=== PATIENT | female | born 1980 | race Caucasian/White ===

== ENCOUNTER 2019-11-13 14:48 | Outpatient (CLI) | payer OTHER, SELFPAY ==
[2019-11-13 16:16] LABS: Alanine Aminotransferase 21 U/L (14-59); Albumin Level 4.1 g/dL (3.4-5.0); Alkaline Phosphatase 57 U/L (46-116); Anion Gap 14.9 mmol/L (7-16); Aspartate Amino Transferase 16 U/L (15-37); Bilirubin,Total 0.3 mg/dL (0.00-1.00); Blood Urea Nitrogen 14 mg/dL (7-18); Calcium 9.1 mg/dL (8.5-10.1); Carbon Dioxide 27 mmol/L (21-32); Chloride 104 mmol/L (98-108); Cholesterol 146 mg/dL (0-200); Estimated Glomerular Filt Rate > 60; Glucose 88 mg/dL (70-99); HDL Direct 59 mg/dL (40-60); LDL Cholesterol Calculated 81 mg/dL (<130); Osmolality Calculated 293 mOsm/kg (285-295); Potassium 3.9 mmol/L (3.5-5.1); Sodium 142 mmol/L (136-145); Thyroid Stimulating Hormone 1.85 uIU/mL (0.36-3.74); Total Protein 7.4 g/dL (6.4-8.2); Triglycerides 29 mg/dL (0-150)
== END 2019-11-13 14:49 | disposition home or self-care (01) ==
LOC: CHSLAB 14:51
PROVIDERS: PCP Nurse Practitioner Family; Visit Provider Nurse Practitioner Family
DX: Z00.00 Encounter for general adult medical examination without abnormal findings (principal); R53.83 Other fatigue
CPT/HCPCS: 36415; 80053; 80061; 84443

== ENCOUNTER 2020-05-30 14:49 | Outpatient (CLI) | payer OTHER, SELFPAY ==
[2020-05-31 02:52] LABS: SARS-CoV-2 RNA PCR Negative
== END 2020-05-30 14:50 | disposition home or self-care (01) ==
PROVIDERS: PCP Nurse Practitioner Family; Visit Provider Nurse Practitioner Family
DX: J01.90 Acute sinusitis, unspecified (principal); Z20.828 Contact with and (suspected) exposure to other viral communicable diseases
CPT/HCPCS: 87635; C9803; U0003

== ENCOUNTER 2020-11-18 15:50 | Outpatient (CLI) | payer OTHER, SELFPAY ==
[2020-11-18 16:02] LABS: Basophils Absolute Auto 0.03 K/mm3 (0.00-0.10); Basophils Percent Auto 0.5 % (0.0-1.0); Eosinophils Absolute Auto 0.19 K/mm3 (0.02-0.50); Eosinophils Percent Auto 3.2 % (1.0-6.0); Hematocrit 33.2 % (35.0-49.0); Hemoglobin 10.8 g/dL (12.0-15.0); Immature Granulocyte Absolute 0.02 K/mm3 (0.00-0.00); Immature Granulocyte Percent A 0.3 % (0.0-0.0); Lymphocytes Absolute Auto 1.95 K/mm3 (1.10-4.50); Lymphocytes Percent Auto 32.9 % (18.0-42.0); Mean Corpuscular HGB Conc 32.5 g/dL (32.0-36.0); Mean Corpuscular Hemoglobin 26.6 pg (27.0-31.0); Mean Corpuscular Volume 81.8 fL (78.0-102.0); Monocytes Percent Auto 6.7 % (2.0-11.0); Neutrophils Absolute Auto 3.3 K/mm3 (1.7-7.2); Neutrophils Percent Auto 56.4 % (50.0-70.0); Platelet Count Result 273 K/mm3 (150-420); Red Blood Count 4.06 M/mm3 (4.20-5.40); Red Cell Distribution Width 14.5 % (11.6-14.4); White Blood Count 5.9 K/mm3 (4.8-10.8)
[2020-11-18 17:37] LABS: Alanine Aminotransferase 23 U/L (14-59); Albumin Level 4.5 g/dL (3.4-5.0); Alkaline Phosphatase 56 U/L (46-116); Anion Gap 10 mmol/L (8-16); Aspartate Amino Transferase 12 U/L (15-37); Bilirubin,Total 0.4 mg/dL (0.00-1.00); Blood Urea Nitrogen 12 mg/dL (7-18); Calcium 9.4 mg/dL (8.5-10.1); Carbon Dioxide 27 mmol/L (21-32); Chloride 102 mmol/L (98-108); Estimated Glomerular Filt Rate > 60; Free T4 Free Thyroxine 0.68 ng/dL (0.76-1.46); Glucose 90 mg/dL (70-99); Osmolality Calculated 287 mOsm/kg (285-295); Sodium 139 mmol/L (136-145); Thyroid Stimulating Hormone 2.19 uIU/mL (0.36-3.74); Total Protein 8.5 g/dL (6.4-8.2); Vitamin B12 361 pg/mL (193-986)
[2020-11-20 21:10] LABS: Vitamin D 25 Hydroxy 34 ng/mL (30-100)
== END 2020-11-18 15:51 | disposition home or self-care (01) ==
LOC: CHSLAB 15:53
PROVIDERS: PCP Nurse Practitioner Family; Visit Provider Nurse Practitioner Family
DX: R53.83 Other fatigue (principal)
CPT/HCPCS: 36415; 80053; 82306; 82607; 83735; 84439; 84443; 85025

== ENCOUNTER 2020-11-29 18:20 | Outpatient (CLI) | payer OTHER, SELFPAY ==
[2020-11-29 18:49] LABS: Hematocrit 32.9 % (35.0-49.0); Hemoglobin 10.7 g/dL (12.0-15.0); Immature Reticulocyte Fraction 8.1 % (2.0-16.52); Reticulocyte Hemoglobin Conten 30.4 pg (28.0-35.0); Reticulocyte Percent 0.87 % (0.50-1.50); Reticulocytes Absolute 0.04 M/mm3 (0.02-0.1)
[2020-11-29 20:00] LABS: Ferritin 11 ng/mL (8-252); Iron 125 ug/dL (50-170)
[2020-12-03 10:57] LABS: Red Blood Cell Folate >1000 ng/mL RBC (>280)
== END 2020-11-29 18:21 | disposition home or self-care (01) ==
LOC: CHSLAB 18:23
PROVIDERS: PCP Nurse Practitioner Family; Visit Provider Nurse Practitioner Family
DX: D64.9 Anemia, unspecified (principal)
CPT/HCPCS: 36415; 82728; 82747; 83540; 85014; 85018; 85046

== ENCOUNTER 2020-12-12 12:18 | Outpatient (CLI) | payer OTHER, SELFPAY ==
--- NOTE | 2020-12-12 12:23 | ECG_ITS ---
Measurements Intervals [place] Rate: 61 P: 64 [place]: 148 QRS: 89 QRSD: 97 T: 22 QT: 386 QTc: 392 Interpretive Statements SINUS RHYTHM NORMAL ECG Electronically Signed On 12-12-2020 13:07:13 [employer] by Rene Dunn D.O.
[2020-12-12 13:38] LABS: Alanine Aminotransferase 29 U/L (14-59); Albumin Level 4.5 g/dL (3.4-5.0); Alkaline Phosphatase 52 U/L (46-116); Anion Gap 9 mmol/L (8-16); Aspartate Amino Transferase 16 U/L (15-37); Bilirubin,Total 0.5 mg/dL (0.00-1.00); Blood Urea Nitrogen 15 mg/dL (7-18); Calcium 9.3 mg/dL (8.5-10.1); Carbon Dioxide 27 mmol/L (21-32); Chloride 101 mmol/L (98-108); Estimated Glomerular Filt Rate 59; Glucose 111 mg/dL (70-99); Osmolality Calculated 285 mOsm/kg (285-295); Potassium 4.1 mmol/L (3.5-5.1); Sodium 137 mmol/L (136-145); Total Protein 7.8 g/dL (6.4-8.2); Vitamin B12 366 pg/mL (193-986)
[2020-12-15 22:28] LABS: Vitamin D 25 Hydroxy 42 ng/mL (30-100)
== END 2020-12-12 12:19 | disposition home or self-care (01) ==
LOC: CHSLAB 12:23
PROVIDERS: PCP Nurse Practitioner Family; Visit Provider Nurse Practitioner Family
DX: R00.2 Palpitations (principal); Z79.899 Other long term (current) drug therapy
CPT/HCPCS: 36415; 80053; 82306; 82607; 83735; 93005

== ENCOUNTER 2021-02-05 11:16 | Outpatient (CLI) | payer OTHER, SELFPAY ==
--- NOTE | 2021-02-07 14:55 | WPDHOLTEREM ---
Holter/Event Monitor Holter/Event Monitor Date of procedure: 02/05/21 Procedure Type: 48 hour holter monitor Indications: Palpitations Conclusion: 1. 48 hour holter monitor on 02/05/21. 2. Underlying rhythm is sinus rhythm. HR range 51-125 bpm; average 78 bpm. 3. No premature supraventricular complexes. No supraventricular tachycardia. 4. There are 80 premature ventricular complexes and 1 ventricular couplet. No ventricular tachycardia. 5. No sinoatrial or atrioventricular blocks. No significant pauses greater than 2 seconds. 6. Patient report symptoms of stressed which demonstrate sinus rhythm at 83 bpm.
== END 2021-02-05 11:17 | disposition home or self-care (01) ==
PROVIDERS: PCP Nurse Practitioner Family; Visit Provider Nurse Practitioner Family
DX: R00.2 Palpitations (principal)
CPT/HCPCS: 93225; 93226

== ENCOUNTER 2021-05-08 10:07 | Outpatient (CLI) | payer OTHER, SELFPAY ==
[2021-05-08 11:40] LABS: SARS-CoV-2 RNA PCR Positive (Negative)
== END 2021-05-08 10:08 | disposition home or self-care (01) ==
LOC: CHSLAB 10:10
PROVIDERS: PCP Nurse Practitioner Family; Visit Provider Nurse Practitioner Family
DX: U07.1 COVID-19 (principal)
CPT/HCPCS: C9803; U0003; U0005

== ENCOUNTER 2021-08-06 16:24 | Outpatient (CLI) | payer OTHER, SELFPAY ==
--- NOTE | ~2021-08-06 | XR_ITS ---
XR hip LT min 2V 08/06/2021 17:03 INDICATION: Left hip pain PROCEDURE: 2 views left hip COMPARISON: No prior studies for comparison. FINDINGS: Fracture, dislocation or subluxation is not identified. The soft tissues appear within norm al limits. No foreign bodies are identified. IMPRESSION: 1: NO ACUTE BONE OR JOINT ABNORMALITY IDENTIFIED. Reviewed, dictated and finalized at location A.
--- NOTE | ~2021-08-06 | XR_ITS ---
XR lumbar spine 2-3V 08/06/2021 17:03 Indication: Low back pain Procedure: 3 views lumbar spine Comparison: No prior studies for comparison. Findings: Vertebral body heights are maintained. No fracture, subluxation or dislocation. There is mi ld disc narrowing at L4-5 and L5-S1. There is mild lower lumbar facet hypertrophy. No evidence for sp ondylolisthesis. Pedicles intact. Sacral foramen are symmetric. Impression: 1: Mild lumbar spondylosis. Reviewed, dictated and finalized at location A. Impression: 1: Mild lumbar spondylosis.
== END 2021-08-06 16:25 | disposition home or self-care (01) ==
LOC: CHSIMG 16:26
PROVIDERS: PCP Nurse Practitioner Family; Visit Provider Nurse Practitioner Family
DX: M54.9 Dorsalgia, unspecified (principal); M25.552 Pain in left hip
CPT/HCPCS: 72100; 73502

== ENCOUNTER 2021-08-18 13:02 | Outpatient (RCR) | payer OTHER, SELFPAY ==
--- NOTE | 2021-08-18 16:34 | PTOPEVAL ---
Thank you for referring Mayra Membreno to [facility].? The patient is scheduled to be seen for therapy? __2__x/week for 8 visits. Please review, sign, date and return this plan of care TOMMY. I agree with and certify that the following plan of care is medically necessary. Referring Physician Date Admitting Provider: Attending Provider: Cely Grubbs NP Referring Provider: *PT Outpatient Evaluation Start: 08/18/21 13:04 Freq: Status: Active Protocol: Document 08/18/21 13:04 [facility] (Rec: 08/18/21 16:33 S[facility] [email or web address]) Therapy Assessment Status Assessment Status Assessment Status Evaluation Evaluation Information Problem Diagnosis low back pain Onset 08/11/20 Subjective Information Pt. reports she has had back Query Text:As Reported By Patient/ pain since she was 18. she Family reports pain has gotten progressively worse over the years. She reports she has been recieving massages. She recieved a recent bout of push therapy which she noticed increased her pain. 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 She describes pain across the low back and will raidate into the left hip . She reports pain effects her ability to clean the house . she states that she can stand for about 20 minutes before onset of pain. She states that sitting is about 30 minutes before pain onset. She reports that pain will distrupt her sleep. She reports that her goal for therapy is to decrease her pain with activity. Diagnostic Tests X-Rays For This Problem Yes Pain Assessment Timing of Pain Assessment Timing of Pain Assessment Pre-Treatment Pain Scale Pain Scale Used Numeric (1 - 10) Self Report Pain Assessment Lower Back Reported Pain Level 5 Pain Description Aching,Sharp Pain Frequency Chronic,Continuous Lowest Pain Intensity 2 Greatest Pain Intensity 8 Pain Aggravating Factors Prolonged Position,Sitting, Walking Pain Score Pain Score
--- NOTE | 2021-09-22 10:07 | PTOPEVAL ---
Thank you for referring Mayra Membreno to [facility].? The patient is scheduled to be seen for therapy? ____x/week for ___ weeks. Please review, sign, date and return this plan of care TOMMY. I agree with and certify that the following plan of care is medically necessary. Referring Physician Date Admitting Provider: Attending Provider: Cely Grubbs NP Referring Provider: *[facility] Outpatient Evaluation Start: 08/18/21 13:04 Freq: Status: Active Protocol: Document 09/17/21 17:00 [facility] (Rec: 09/17/21 17:44 [facility] [id number]) Therapy Assessment Status Assessment Status Assessment Status Discharge Evaluation Information Problem Diagnosis low back pain Onset 08/11/20 Subjective Information patient rpeorts she is feeling Query Text:As Reported By Patient/ better overall. she reports Family she still has days when her pain is increased. she reports having back pain since she was 18. she reports she is confident she can continue on her own at home at this time. she reports she has been progressing back to running, gym workouts, and completing her HEP. Pain Assessment Timing of Pain Assessment Timing of Pain Assessment Assessment Pain Scale Pain Scale Used Numeric (1 - 10) Self Report Pain Assessment Lower Back Reported Pain Level 3 Pain Score Pain Score 3: Self Report Interventions Used Interventions Used By Clinicians Activity or ADL's,Education, Electrical Stimulation, Exercise,Heat Cervical and Lumbar ROM Lumbar ROM Lumbar Flexion Active Ankle Query Text:Hands to: Lumbar Extension (0-40) 30 Query Text:Active in Degrees Lumbar Lateral Flexion Right (0-40) 40 Query Text:Active in Degrees Lumbar Lateral Flexion Left (0-40) 40 Query Text:Active in Degrees Cervical and Lumbar Muscle Testing Lumbar Strength Upper Abdominal Strength 4 Good Lower Abdominal Strength 4-Good- Lower Extremity Muscle Strength Testing General Lower Extremity Strength Gross Lower Extremity Strength -bilateral hip flexion 5/5 -bilateral hip abduction 4+/5 -bilateral hip extension 4+/5 -bilateral knee flexion 5/5 -bilateral knee extension 5/5 Muscle Length Testing Muscle Length Testing Piriformis w/Hip Flexion >90 Degrees (R) Mild Tightness,(L) Mild Ti
== END 2021-09-17 14:40 | disposition home or self-care (01) ==
LOC: CHSPT 13:02
PROVIDERS: PCP Nurse Practitioner Family; Visit Provider Nurse Practitioner Family
DX: M54.50 Low back pain, unspecified (principal)
CPT/HCPCS: 97014; 97110; 97140; 97161; G0283

== ENCOUNTER 2022-01-17 07:31 | Outpatient (CLI) | payer OTHER, SELFPAY ==
--- NOTE | ~2022-01-17 | MR_ITS ---
EXAMINATION: MR lumbar spine wo con EXAM DATE: 01/17/2022 08:44 INDICATION: Chronic LBP, worse x18mo. TECHNIQUE: Multi-sequential, multiplanar MR images of the lumbar spine were obtained without contrast . Sagittal T1, T2, T2 fat saturation images. Axial T2 weighted images. There is no prior study for comparison. FINDINGS: The vertebral bodies are aligned in the AP dimension. Vertebral body and disc heights are w ell-maintained. There is L4-5 disc desiccation. The conus medullaris terminates at the L1 level and h as normal signal intensity and morphology. Level by level evaluation: T12-L1: Disc does not extend beyond the endplate margin. Facet arthropathy: None. Neural foraminal stenosis: No stenosis. Central canal stenosis: No stenosis. L1-L2: Disc does not extend beyond the endplate margin. Facet arthropathy: None. Neural foraminal stenosis: No stenosis. Central canal stenosis: No stenosis. L2-L3: Disc does not extend beyond the endplate margin. Facet arthropathy: Mild. Neural foraminal stenosis: No stenosis. Central canal stenosis: No stenosis. L3-L4: Disc does not extend beyond the endplate margin. Facet arthropathy: Mild. Neural foraminal stenosis: No stenosis. Central canal stenosis: No stenosis. L4-L5: There is a mild diffuse disc bulge. Facet arthropathy: Mild. Neural foraminal stenosis: Moderate left, mild to moderate right. Central canal stenosis: No stenosis. L5-S1: Disc does not extend beyond the endplate margin. Facet arthropathy: Mild. Neural foraminal stenosis: No stenosis. Central canal stenosis: No stenosis. IMPRESSION: 1. L4-5 moderate left, mild to moderate right neural foraminal stenosis. 2. Otherwise mild facet arthropathy. Reviewed, dictated and finalized at location A.
== END 2022-01-17 07:32 | disposition home or self-care (01) ==
LOC: CHSIMG 07:32
PROVIDERS: PCP Nurse Practitioner Family; Visit Provider Nurse Practitioner Family
DX: M54.50 Low back pain, unspecified (principal)
CPT/HCPCS: 72148

== ENCOUNTER 2022-03-24 17:16 | Emergency (ER) | payer OTHER, SELFPAY ==
[2022-03-24 17:50] VITALS: BP 111/70; PULSE 63; RESP 20; TEMP 36.4; O2SAT 99
[2022-03-24 18:13] LABS: Basophils Absolute Auto 0.02 K/mm3 (0.00-0.10); Basophils Percent Auto 0.3 % (0.0-1.0); Eosinophils Absolute Auto 0.14 K/mm3 (0.02-0.50); Eosinophils Percent Auto 2.3 % (1.0-6.0); Hematocrit 34.3 % (35.0-49.0); Hemoglobin 11.8 g/dL (12.0-15.0); Immature Granulocyte Absolute 0.01 K/mm3 (0.00-0.00); Immature Granulocyte Percent A 0.2 % (0.0-0.0); Lymphocytes Absolute Auto 2.04 K/mm3 (1.10-4.50); Lymphocytes Percent Auto 33.2 % (18.0-42.0); Mean Corpuscular HGB Conc 34.4 g/dL (32.0-36.0); Mean Corpuscular Hemoglobin 29.6 pg (27.0-31.0); Mean Corpuscular Volume 86.2 fL (78.0-102.0); Mean Platelet Volume 8.9 fl (9.2-11.8); Monocytes Absolute Auto 0.37 K/mm3 (0.10-0.90); Neutrophils Absolute Auto 3.6 K/mm3 (1.7-7.2); Platelet Count Result 256 K/mm3 (150-420); Red Blood Count 3.98 M/mm3 (4.20-5.40); Red Cell Distribution Width 12.2 % (11.6-14.4); White Blood Count 6.1 K/mm3 (4.8-10.8)
--- NOTE | 2022-03-24 18:31 | PC.NURSE ---
1800 pt urine and blood collected, pt remains in lobby
[2022-03-24 18:33] LABS: Add Urine Microscopic? NO; Appearance Urine Clear (Clear); Bilirubin Urine Negative (Negative); Blood Urine Negative (Negative); Color Urine Light Yellow (Yellow); Glucose Urine UA Negative (Negative); Ketones Urine Negative (Negative); Leukocyte Esterase Ur Negative LEU/UL (Negative); Nitrate Urine Negative (Negative); Protein Urine Negative (Negative); Specific Grav Ur <= 1.005 (1.010-1.020); Urobilinogen Urine 0.2 mg/dL (0.2-1.0); pH Urine 6.5 (5.0-8.0)
[2022-03-24 18:34] LABS: Alanine Aminotransferase 30 U/L (14-59); Alkaline Phosphatase 52 U/L (46-116); Anion Gap 9 mmol/L (8-16); Aspartate Amino Transferase 17 U/L (15-37); Bilirubin,Total 0.3 mg/dL (0.00-1.00); Blood Urea Nitrogen 14 mg/dL (7-18); Calcium 9.3 mg/dL (8.5-10.1); Carbon Dioxide 26 mmol/L (21-32); Chloride 102 mmol/L (98-108); Estimated Glomerular Filt Rate > 60; Ethanol < 3 mg/dL (0-6); Glucose 100 mg/dL (70-99); Osmolality Calculated 284 mOsm/kg (285-295); Potassium 3.6 mmol/L (3.5-5.1); Sodium 137 mmol/L (136-145); Total Protein 8.6 g/dL (6.4-8.2)
[2022-03-24 18:39] LABS: Amphetamine Screen Urine Negative (Negative); Barbiturate Screen Urine Negative (Negative); Benzodiazepines Screen Urine Negative (Negative); Cannabinoid Screen Urine Negative (Negative); Cocaine Screen Urine Negative (Negative); Methadone Screen Urine Negative (Negative); Opiate Screen Urine Negative (Negative); Phencyclidine Screen Urine Negative (Negative)
[2022-03-24 18:41] LABS: Pregnancy On Board Control Positive; Urine Pregnancy Test Negative
[2022-03-24 19:00] VITALS: BP 108/68; PULSE 56
[2022-03-24] MEDS: MECLIZINE HCL 25 MG TABLET 50 MG PO (19:04)
[2022-03-24] MEDS: SODIUM CHLORIDE 0.9% IV 1,000 ML 999 ML IV CONT (19:04)
--- NOTE | 2022-03-24 19:34 | ED.GENADULT ---
HPI - General Adult General Chief complaint: Altered Mental Status Stated complaint: dizzy, confused History of Present Illness HPI narrative: the patient is a 41-year-old woman with history of anxiety disorder. She presents with onset today of dizziness, mild confusion, and feeling off, goofy. Associated with transient left-sided headache that was very mild. This has resolved. She also has occasional tingling in both arms that was intermittent and is not present currently. No motor or sensory deficits. No blurred vision or diplopia. No headache at present. No nausea or vomiting. No chest or abdominal pain. No urinary or GI or respiratory symptoms. No fevers or chills or diaphoresis. Related Data Home Medications Medication Instructions Recorded Confirmed buspirone 15 mg tablet 15 mg PO TID PRN anxiety 09/12/19 09/15/21 dexmethylphenidate 10 mg 10 mg PO DAILY 09/12/19 09/15/21 capsule,extended release [id number] (Focalin XR) montelukast 10 mg tablet 10 mg PO DAILY 09/12/19 09/15/21 sertraline 100 mg tablet 100 mg PO BID 09/12/19 09/15/21 cholecalciferol (vitamin D3) 25 25 mcg PO DAILY 03/12/21 09/15/21 mcg (1,000 unit) capsule vitamin B complex 1 cap PO DAILY 03/12/21 09/15/21 Allergies Allergy/AdvReac Type Severity Reaction Status Date / Time No Known Allergies Allergy Verified 02/10/22 14:15 Review of Systems Review of Systems: All systems reviewed & are unremarkable except as noted in HPI and below Constitutional: Constitutional: Reports no additional constitutional complaints, Denies anorexia, Denies body ache(s), Denies chills, Denies excessive sweating, Reports fatigue, Denies fever(s), Denies frequent falls, Reports headache(s), Reports malaise and Denies poor appetite Eyes: Eyes: Reports no additional eye complaints, Denies blurry vision, Denies change in vision, Denies irritation, Denies itchy eyes and Denies photophobia ENT: Reports system reviewed and no additional complaints, except as documented, Reports Normal hearing present, Denies change in voice, Denies dysphagia, Denies vertigo, Reports dizziness, Denies ear discharge, Reports headache(s), Denies hearing loss, Denies hoarseness, Denies nasal congestion, Denies neck pain, Denies sinus pressure, Denies sore throat and Denies throat swelling Cardiovascular: Cardiovascular: Reports no additional cardiovascular complaints, Denies chest pain, Denies syncope, Denies rapid heart rate, Denies irregular heart rhythm, Denies leg edema, Denies dyspnea and Denies slow heart rate Respiratory: Respiratory: Reports no additional respiratory complaints, Denies cough, Denies dyspnea, Denies stridor and Denies wheezing Gastrointestinal: Gastrointestinal: Reports no additional gastrointestinal complaints, Denies abdominal pain, Denies melena, Denies hematochezia, Denies dysphagia, Denies diarrhea, Denies nausea and Denies vomiting Genitourinary: Genitourinary: Denies hematuria, Denies urinary frequency, Denies dysuria, Denies flank pain and Denies urinary urgency Musculoskeletal: Musculoskeletal: Reports no additional musculoskeletal complaints, Denies abnormal gait, Denies back pain, Denies myalgias, Denies arthralgias, Denies joint swelling, Denies limited range of motion, Denies muscle cramps, Denies muscle weakness, Denies neck pain and Denies numbness Integumentary/Breasts: Skin/Breast: Reports system reviewed and no additional complaints, except as docu, Denies breast pain, Denies change in pigmentation, Denies pruritus, Denies erythema and Denies wounds Neurologic: Reports system reviewed and no additional complaints, except as documented, Reports Normal hearing present, Denies Abnormal speech present, Denies abnormal gait, Reports confusion, Denies vertigo, Reports dizziness, Denies syncope, Denies frequent falls, Denies headache(s), Denies focal weakness, Denies numbness and Reports paresthesias Psychiatric: Psychiatric: Reports no additional psychiatri
[2022-03-24 20:00] VITALS: BP 110/63; PULSE 63; RESP 18; O2SAT 100
[2022-03-24 20:19] VITALS: BP 108/62; PULSE 62; RESP 18; TEMP 36.6; O2SAT 99
== END 2022-03-24 20:25 | disposition home or self-care (01) ==
PROVIDERS: Emergency Provider Emergency Medicine; PCP Nurse Practitioner Family
DX: F41.9 Anxiety disorder, unspecified (principal); R42 Dizziness and giddiness
CPT/HCPCS: 36415; 80053; 80307; 81003; 81025; 85025; 96360; 99283; A9270; J7030

== ENCOUNTER 2022-05-08 14:11 | Outpatient (CLI) | payer OTHER, SELFPAY ==
[2022-05-08] MEDS: SODIUM CHLORIDE 0.9% IV 1,000 ML 250 ML IVPB (14:27)
[2022-05-08] MEDS: DEXAMETHASONE SOD PHOS INJ 4 MG/ML VIAL IV PUSH (14:29)
[2022-05-08] MEDS: DIVALPROEX SODIUM ER 500 MG TAB.24H PO (14:29)
[2022-05-08] MEDS: METOCLOPRAMIDE HCL INJ 10 MG/2 ML VIAL IV PUSH (14:29)
== END 2022-05-08 14:12 | disposition home or self-care (01) ==
PROVIDERS: PCP Nurse Practitioner Family; Visit Provider Nurse Practitioner Family
DX: R51.9 Headache, unspecified (principal)
CPT/HCPCS: 96361; 96365; 96366; 96374; 96375; A9270; J1100; J2765; J7030

== ENCOUNTER 2022-05-13 10:54 | Outpatient (CLI) | payer OTHER, SELFPAY ==
--- NOTE | ~2022-05-13 | CT_ITS ---
EXAMINATION: CT brain wo con DATE: 05/13/2022 11:19 INDICATION: Headaches for 2 months TECHNIQUE: Computed tomography (CT) of the head was performed without intravenous contrast. The mA wa s adjusted according to patient size. Iterative reconstruction technique was employed. Exam dose: 52 9.67 mGy-cm total exam DLP. COMPARISON: None FINDINGS: No intracranial mass lesion or hemorrhage or cerebrovascular accident. No midline shift or mass effect. Normal waldrop-white matter differentiation. Normal ventricular size. No subdural or epidural hematoma. No fracture or bone destruction of the cranial vault. Included mastoid air cells and paranasal sinuses are normally developed and aerated. IMPRESSION: Negative Reviewed, dictated and finalized at Location A. Reviewed, dictated and finalized at location B. IMPRESSION: Negative
== END 2022-05-13 10:55 | disposition home or self-care (01) ==
LOC: CHSIMG 10:56
PROVIDERS: PCP Nurse Practitioner Family; Visit Provider Nurse Practitioner Family
DX: R51.9 Headache, unspecified (principal)
CPT/HCPCS: 70450

== ENCOUNTER 2022-06-26 08:48 | Outpatient (CLI) | payer OTHER, SELFPAY ==
--- NOTE | 2022-06-26 14:46 | WPDNEUROLOGY ---
Neurology EEG Report General Information Date of Study: 06/26/22 TEST eeg DIAGNOSIS migraines CONDITION OF RECORDING awake and drowsy EEG NUMBER [id number] CLINICAL HISTORY patient states he started having episodes of headache and cognitive dysfunction about 4 months ago. Progressed from happening occasionally to almost every day. Started on migraine medicines and seems to be better EEG DESCRIPTION basic resting occipital frequency consists of large amount of well-organized low to medium voltage 8 to 10 hertz per 2nd alpha posteriorly. During drowsiness low-voltage beta activity seen diffusely admixed with waxing and waning posterior alpha rhythm. Hyperventilation not done. Photic stimulation produced normal drive. Non paroxysmal. Nonfocal. Nonlateralizing. IMPRESSION normal record
== END 2022-06-26 08:49 | disposition home or self-care (01) ==
PROVIDERS: PCP Nurse Practitioner Family; Visit Provider Psychiatry & Neurology Neurology
DX: G43.909 Migraine, unspecified, not intractable, without status migrainosus (principal)
CPT/HCPCS: 95816

== ENCOUNTER 2022-07-02 16:39 | Outpatient (CLI) | payer OTHER, SELFPAY ==
--- NOTE | ~2022-07-02 | MR_ITS ---
EXAMINATION: MR brain/brain stem wo/w con DATE: 07/02/2022 22:45 CDT INDICATION: Headaches. TECHNIQUE: Magnetic resonance imaging (MRI) of the brain and brainstem was performed without and with 18 cc MultiHance intravenous contrast. Sequences included sagittal and axial T1-weighted SE, axial d iffusion-weighted FS SE, axial T2*-weighted GRE, axial T2-weighted FLAIR Propeller, and axial T2-weig hted Propeller. Apparent diffusion coefficient (ADC) maps were created. COMPARISON: CT dated 05/13/2022 FINDINGS: The brain volume and ventricular system are within normal limits. The brain parenchymal si gnal intensity pattern and waldrop/white matter is normal and there is no evidence of hemorrhage, space occupying masses or infarctions. The flow signal voids of the major arterial structures about the [place] of [place] and within the hubert r dural venous sinuses appear grossly unremarkable and patent. The seventh and eighth cranial nerve complexes are normal. The mid sagittal image demonstrates a normal craniovertebral junction and jalyn us callosum. The paranasal sinuses are grossly unremarkable. No abnormal contrast enhancement was appreciated. IMPRESSION: 1: Unremarkable MRI of the brain. Reviewed, dictated and finalized at location A.
== END 2022-07-02 16:40 | disposition home or self-care (01) ==
PROVIDERS: PCP Nurse Practitioner Family; Visit Provider Psychiatry & Neurology Neurology
DX: R51.9 Headache, unspecified (principal)
CPT/HCPCS: 70553; A9577

== ENCOUNTER 2023-03-04 17:34 | Outpatient (CLI) | payer OTHER, SELFPAY ==
[2023-03-04 17:59] LABS: Basophils Absolute Auto 0.03 K/mm3 (0.00-0.10); Basophils Percent Auto 0.5 % (0.0-1.0); Eosinophils Absolute Auto 0.15 K/mm3 (0.02-0.50); Eosinophils Percent Auto 2.6 % (1.0-6.0); Hemoglobin 12.6 g/dL (12.0-15.0); Immature Granulocyte Absolute 0.02 K/mm3 (0.00-0.00); Immature Granulocyte Percent A 0.3 % (0.0-0.0); Lymphocytes Absolute Auto 1.66 K/mm3 (1.10-4.50); Lymphocytes Percent Auto 28.6 % (18.0-42.0); Mean Corpuscular HGB Conc 34.1 g/dL (32.0-36.0); Mean Corpuscular Hemoglobin 29.4 pg (27.0-31.0); Mean Corpuscular Volume 86.4 fL (78.0-102.0); Mean Platelet Volume 8.6 fl (9.2-11.8); Monocytes Absolute Auto 0.34 K/mm3 (0.10-0.90); Monocytes Percent Auto 5.9 % (2.0-11.0); Neutrophils Absolute Auto 3.6 K/mm3 (1.7-7.2); Neutrophils Percent Auto 62.1 % (50.0-70.0); Platelet Count Result 243 K/mm3 (150-420); Red Blood Count 4.28 M/mm3 (4.20-5.40); Red Cell Distribution Width 12.6 % (11.6-14.4); White Blood Count 5.8 K/mm3 (4.8-10.8)
[2023-03-04 18:34] LABS: Alanine Aminotransferase 44 U/L (14-59); Albumin Level 4.4 g/dL (3.4-5.0); Alkaline Phosphatase 63 U/L (46-116); Anion Gap 13 mmol/L (8-16); Aspartate Amino Transferase 22 U/L (15-37); Bilirubin,Total 0.4 mg/dL (0.00-1.00); Blood Urea Nitrogen 11 mg/dL (7-18); Carbon Dioxide 24 mmol/L (21-32); Chloride 103 mmol/L (98-108); Estimated Glomerular Filt Rate > 60; Glucose 92 mg/dL (70-99); Iron 63 ug/dL (50-170); Osmolality Calculated 289 mOsm/kg (285-295); Potassium 3.8 mmol/L (3.5-5.1); Sodium 140 mmol/L (136-145); Total Protein 7.8 g/dL (6.4-8.2)
[2023-03-10 20:06] LABS: Vitamin D 25 Hydroxy 71 ng/mL (30-100)
== END 2023-03-04 17:35 | disposition home or self-care (01) ==
LOC: CHSLAB 17:37
PROVIDERS: PCP Nurse Practitioner Family; Visit Provider Nurse Practitioner Family
DX: D64.9 Anemia, unspecified (principal); Z79.899 Other long term (current) drug therapy
CPT/HCPCS: 36415; 80053; 82306; 83540; 85025

== ENCOUNTER 2023-04-02 09:36 | Outpatient (CLI) | payer OTHER, SELFPAY ==
[2023-04-02 10:37] LABS: Thyroid Stimulating Hormone 2.16 uIU/mL (0.36-3.74)
[2023-04-06 11:57] LABS: T4 Thyroxine 5.6 mcg/dL (5.9-10.3)
== END 2023-04-02 09:37 | disposition home or self-care (01) ==
LOC: CHSLAB 09:37
PROVIDERS: PCP Nurse Practitioner Family; Visit Provider Obstetrics & Gynecology
DX: L65.9 Nonscarring hair loss, unspecified (principal)
CPT/HCPCS: 36415; 84436; 84443

== ENCOUNTER 2023-07-28 17:41 | Outpatient (CLI) | payer OTHER, SELFPAY ==
[2023-07-28 19:24] LABS: Thyroid Stimulating Hormone 4.42 uIU/mL (0.36-3.74); Vitamin B12 488 pg/mL (193-986)
[2023-08-01 14:44] LABS: Thyroid Peroxidase Antibodies <1 IU/mL (<9)
[2023-08-02 15:10] LABS: Thyroid Stimulating Immunoglob <89 % baseline (<140)
== END 2023-07-28 17:42 | disposition home or self-care (01) ==
LOC: CHSLAB 17:43
PROVIDERS: PCP Nurse Practitioner Family; Visit Provider Internal Medicine
DX: R79.89 Other specified abnormal findings of blood chemistry (principal)
CPT/HCPCS: 36415; 82607; 84439; 84443; 84445; 86376

== ENCOUNTER 2023-08-02 13:28 | Emergency (ER) | payer OTHER, SELFPAY ==
--- NOTE | ~2023-08-02 | CT_ITS ---
EXAMINATION: CT abdomen pelvis w con DATE: 08/02/2023 15:07 INDICATION: LLQ PAIN,NAUSEA,RECTAL BLEEDING,X1WK TECHNIQUE: Computed tomography (CT) of the abdomen and pelvis was performed with 100 mL Omnipaque-350 intravenous contrast. Automated exposure control and iterative reconstruction technique were employe d. The dose-length product was 539.45 mGy-cm. COMPARISON: None. FINDINGS: Lower thorax: Unremarkable Liver: Normal. Biliary/Gallbladder: Collapsed. Gallstones. No inflammatory change. No bile duct dilation. Pancreas: No mass or duct dilation. Spleen: Normal. Adrenals:No mass. Kidneys: No suspicious mass, obstructing stone, or hydronephrosis. Nonobstructing left mid and lower pole calcifications. GI tract: Mild distal esophageal and antral wall edema. No small or large bowel dilation. Normal appe ndix. Diverticulosis without diverticulitis. Mesentery/Peritoneum: No ascites, mass, or free air. Retroperitoneum: No mass. Pelvis: 4.3 cm simple appearing left ovarian cyst. Normal right ovary, uterus, and urinary bladder. Soft Tissues: Soft tissues and body wall unremarkable. Bones: No acute osseous finding. IMPRESSION: Mild esophagitis/gastritis. Otherwise, no acute abdominopelvic process detected. Specifically, no source for GI bleeding detected . Consider a tagged Red cell GI bleeding study for further evaluation. Cholelithiasis without cholecystitis. Diverticulosis without evidence of diverticulitis. 4.3 cm simple appearing left ovarian cyst. No further imaging recommended for a lesion of this size i n a premenopausal woman, noting that some large (greater than 3 cm) or symptomatic cysts will undergo surgical resection. Reviewed, dictated and finalized at location K. IMPRESSION: Mild esophagitis/gastritis. Otherwise, no acute abdominopelvic process detected. Specifically, no source fo r GI bleeding detected. Consider a tagged Red cell GI bleeding study for furthe r evaluation. Cholelithiasis without cholecystitis. Diverticulosis without evidence of diverticulitis. 4.3 cm simple appearing left ovarian cyst. No further imaging recommended for a lesion of this size in a premenopausal woman, noting that some large (greater than 3 cm) or symptomatic cysts will undergo surgical resection.
[2023-08-02 13:34] VITALS: BP 126/66; PULSE 77; RESP 19; TEMP 36.7; O2SAT 99
[2023-08-02 13:49] VITALS: BP 130/75; PULSE 66; RESP 18; O2SAT 98
--- NOTE | 2023-08-02 14:07 | ED.GENADULT ---
HPI - General Adult General Chief complaint: GI Bleed Stated complaint: L abdominal pain Time Seen by Provider: 08/02/23 13:57 History of Present Illness HPI narrative: The patient is a 43-year-old woman with history of anxiety, GERD on Pepcid at night, prior but no other abdominal operations. For the last 3 months, the patient has had intermittent episodes of left upper quadrant abdominal discomfort, initially intermittent and now more constant, worse today than usual, associated with nausea but no vomiting. Also has noticed hematochezia with bright red blood per rectum after she wipes from having a bowel movement but not in the stool. She sometimes when she wipes after urination, she has also noticed some bright red blood when she wipes. This is been ongoing for the last week. Four days ago, she had diarrhea for which she took Pepto-Bismol. No constipation or hard stools prior to the onset of hematochezia. No anal trauma/anal intercourse. No prior history of GI bleeding. Related Data Home Medications Medication Instructions Recorded Confirmed buspirone 15 mg tablet 15 mg PO TID PRN anxiety 09/12/19 08/02/23 sertraline 100 mg tablet 100 mg PO BID 09/12/19 08/02/23 cholecalciferol (vitamin D3) 25 25 mcg PO DAILY 03/12/21 08/02/23 mcg (1,000 unit) capsule vitamin B complex 1 cap PO DAILY 03/12/21 08/02/23 topiramate 25 mg tablet 25 mg PO BID 06/09/22 08/02/23 cetirizine 10 mg tablet (Zyrtec) 10 mg PO DAILY PRN Allergy Symptoms 07/15/23 08/02/23 dexmethylphenidate 10 mg tablet 10 mg PO BID 07/15/23 hair growth supplement BYMOUTH 07/15/23 mtiycfzjiqzi-Nw-sqmg-minerals 18 tablet PO 07/15/23 mg-0.4 mg tablet Allergies Allergy/AdvReac Type Severity Reaction Status Date / Time No Known Allergies Allergy Verified 08/02/23 13:45 Review of Systems Review of Systems: All systems reviewed & are unremarkable except as noted in HPI and below Constitutional: Constitutional: Denies chills, Denies excessive sweating, Denies fatigue, Denies fever(s), Denies headache(s) and Denies weakness Eyes: Eyes: Denies change in vision and Denies photophobia ENT: Denies dysphagia, Denies dizziness, Denies headache(s), Denies lip swelling, Denies nasal congestion, Denies sore throat and Denies tongue swelling Cardiovascular: Cardiovascular: Denies chest pain, Denies syncope, Denies rapid heart rate and Denies dyspnea Respiratory: Respiratory: Denies cough, Denies dyspnea and Denies wheezing Gastrointestinal: Gastrointestinal: Reports abdominal pain, Denies belching, Denies bloating, Reports hematochezia, Denies constipation, Denies dysphagia, Denies diarrhea, Reports nausea, Denies vomiting and Denies hematemesis Genitourinary: Genitourinary: Denies hematuria, Denies urinary frequency, Denies dysuria and Denies urinary urgency Musculoskeletal: Musculoskeletal: Denies back pain, Denies myalgias, Denies arthralgias, Denies joint swelling and Denies numbness Integumentary/Breasts: Skin/Breast: Denies pruritus, Denies erythema and Denies rash Neurologic: Denies confusion, Denies dizziness, Denies syncope, Denies headache(s), Denies focal weakness, Denies numbness and Denies weakness Psychiatric: Psychiatric: Denies anxiety and Denies confusion Endocrine: Endocrine: Denies excessive sweating and Denies fatigue Hematologic/Lymphatic: Hematologic/Lymphatic: Denies easy bleeding and Denies easy bruising Allergic/Immunologic: Allergic/Immunologic: Denies lip swelling, Denies tongue swelling and Denies wheezing PMFSH Past Medical History Medical History Anxiety Educational circumstances CAESAR (generalized anxiety disorder) HPV test positive HSV-1 (herpes simplex virus 1) infection Migraines Surgical History Surgical History delivery delivered (~2012) H/O dilation and curettage (~2015) [place] teeth removed Fami
[2023-08-02 14:20] LABS: Basophils Absolute Auto 0.03 K/mm3 (0.00-0.10); Basophils Percent Auto 0.5 % (0.0-1.0); Eosinophils Absolute Auto 0.16 K/mm3 (0.02-0.50); Eosinophils Percent Auto 2.5 % (1.0-6.0); Hematocrit 35.7 % (35.0-49.0); Hemoglobin 11.9 g/dL (12.0-15.0); Immature Granulocyte Absolute 0.02 K/mm3 (0.00-0.00); Immature Granulocyte Percent A 0.3 % (0.0-0.0); Lymphocytes Absolute Auto 1.71 K/mm3 (1.10-4.50); Lymphocytes Percent Auto 26.8 % (18.0-42.0); Mean Corpuscular HGB Conc 33.3 g/dL (32.0-36.0); Mean Corpuscular Hemoglobin 29.6 pg (27.0-31.0); Mean Corpuscular Volume 88.8 fL (78.0-102.0); Mean Platelet Volume 8.8 fl (9.2-11.8); Monocytes Absolute Auto 0.37 K/mm3 (0.10-0.90); Monocytes Percent Auto 5.8 % (2.0-11.0); Neutrophils Absolute Auto 4.1 K/mm3 (1.7-7.2); Neutrophils Percent Auto 64.1 % (50.0-70.0); Platelet Count Result 221 K/mm3 (150-420); Red Blood Count 4.02 M/mm3 (4.20-5.40); Red Cell Distribution Width 12.6 % (11.6-14.4); White Blood Count 6.4 K/mm3 (4.8-10.8)
[2023-08-02 14:21] LABS: Appearance Urine Clear (Clear); Bilirubin Urine Negative (Negative); Blood Urine Negative (Negative); Color Urine Yellow (Yellow); Glucose Urine UA Negative (Negative); Ketones Urine Negative (Negative); Leukocyte Esterase Ur Negative LEU/UL (Negative); Nitrate Urine Negative (Negative); Protein Urine Negative (Negative); Specific Grav Ur 1.025 (1.010-1.020); Urobilinogen Urine 0.2 mg/dL (0.2-1.0)
[2023-08-02 14:24] LABS: Pregnancy On Board Control Positive; Urine Pregnancy Test Negative
[2023-08-02] MEDS: SODIUM CHLORIDE 0.9% IV 1,000 ML 999 ML IV CONT (14:28)
[2023-08-02] MEDS: ONDANSETRON INJ 4 MG/2 ML VIAL IV PUSH (14:30)
[2023-08-02] MEDS: KETOROLAC 30 MG/ML VIAL (*BKC) IV PUSH (14:30)
[2023-08-02 14:43] LABS: Add Urine Microscopic? NO
[2023-08-02 14:47] LABS: Alanine Aminotransferase 20 U/L (14-59); Albumin Level 3.7 g/dL (3.4-5.0); Alkaline Phosphatase 64 U/L (46-116); Amylase 24 U/L (25-115); Anion Gap 10 mmol/L (8-16); Aspartate Amino Transferase 14 U/L (15-37); Bilirubin,Total 0.3 mg/dL (0.00-1.00); Blood Urea Nitrogen 14 mg/dL (7-18); Calcium 8.9 mg/dL (8.5-10.1); Carbon Dioxide 26 mmol/L (21-32); Chloride 105 mmol/L (98-108); Estimated CRCL calculation 90 ml/min; Estimated Glomerular Filt Rate > 60; Glucose 91 mg/dL (70-99); Lipase 59 U/L (16-77); Osmolality Calculated 292 mOsm/kg (285-295); Potassium 3.6 mmol/L (3.5-5.1); Sodium 141 mmol/L (136-145); Total Protein 7.1 g/dL (6.4-8.2)
[2023-08-02 15:51] VITALS: BP 111/63; PULSE 75; RESP 20; TEMP 36.7; O2SAT 100
[2023-08-02] MEDS: PANTOPRAZOLE SODIUM IV 40 MG VIAL IV PUSH (15:55)
[2023-08-02 16:28] VITALS: RESP 18
== END 2023-08-02 16:33 | disposition home or self-care (01) ==
PROVIDERS: Emergency Provider Emergency Medicine; PCP Nurse Practitioner Family
DX: K20.90 Esophagitis, unspecified without bleeding (principal); K29.70 Gastritis, unspecified, without bleeding; R10.12 Left upper quadrant pain; F41.9 Anxiety disorder, unspecified; Z79.899 Other long term (current) drug therapy; Z87.891 Personal history of nicotine dependence
CPT/HCPCS: 36415; 74177; 80053; 81003; 81025; 82150; 83690; 85025; 96361; 96374; 96375; 99284; C9113; J1885; J2405; J7030; Q9967

== ENCOUNTER 2023-08-05 12:38 | Outpatient (CLI) | payer OTHER, SELFPAY ==
--- NOTE | ~2023-08-05 | US_ITS ---
EXAMINATION: US thyroid DATE: 08/05/2023 13:32 INDICATION: Other specified abnormal findings of blood chemistry. TECHNIQUE: Multiple ultrasound images of the thyroid were obtained. COMPARISON: None. FINDINGS: The right thyroid lobe measures 4.6 x 1.1 x 1.2 cm. The left thyroid lobe measures 4.5 x 1.3 x 1.5 c m. There is normal echotexture and echogenicity throughout the thyroid gland. No discrete nodules id entified. Normal vascular flow is present. IMPRESSION: 1. Normal thyroid. Reviewed, dictated and finalized at location E. IMPRESSION: 1. Normal thyroid.
--- NOTE | ~2023-08-05 | US_ITS ---
EXAMINATION: US pelvic complete w TV DATE: 08/05/2023 13:32 INDICATION: Left adnexal pain. Comparison:Ultrasound dated 03/08/2014 TECHNIQUE: Multiple transabdominal and endovaginal sonographic images of the pelvis performed. FINDINGS: The uterus measures 8.2 x 5.5 x 4.3 cm. The endometrial complex measures 4.5 mm. The right ovary measures 3.1 x 2.1 x 2 cm and the left ovary measures 4.6 x 4.8 x 3.6 cm. There is a left ovarian cyst measuring 4.5 cm. There are small follicles in each ovary. Normal doppler signal in both ovaries. There is free fluid in the pelvis. There are no abnormal masses seen on either side. IMPRESSION: 1. Left ovarian cyst measuring 4.5 cm. Reviewed, dictated and finalized at location L.
== END 2023-08-05 12:39 | disposition home or self-care (01) ==
LOC: CHSIMG 12:39
PROVIDERS: PCP Nurse Practitioner Family; Visit Provider Obstetrics & Gynecology
DX: R79.89 Other specified abnormal findings of blood chemistry (principal); N83.202 Unspecified ovarian cyst, left side
CPT/HCPCS: 76536; 76830; 76856

== ENCOUNTER 2023-09-14 10:53 | Outpatient (CLI) | payer OTHER, SELFPAY ==
[2023-09-16 13:51] LABS: FSH 7.7 mIU/mL (***); LH 7.5 mIU/mL (***); Progesterone 0.2 ng/mL (***)
== END 2023-09-14 10:54 | disposition home or self-care (01) ==
LOC: CHSLAB 10:55
PROVIDERS: PCP Nurse Practitioner Family; Visit Provider Obstetrics & Gynecology
DX: N92.6 Irregular menstruation, unspecified (principal)
CPT/HCPCS: 36415; 83001; 83002; 84144

== ENCOUNTER → 2023-10-14 14:41 | Outpatient (CLI) | payer OTHER, SELFPAY ==
--- NOTE | ~2023-10-14 | US_ITS ---
EXAMINATION: US pelvic complete w TV DATE: 10/14/2023 15:13 INDICATION: Irregular menstruation, unspecified. TECHNIQUE: Multiple transabdominal and transvaginal sonographic images of the pelvis were obtained. COMPARISON: Pelvis ultrasound 08/05/2023, CT abdomen and pelvis 08/02/2023 FINDINGS: TRANSABDOMINAL ULTRASOUND: The uterus measures 8.3 x 3.5 x 4.4 cm. There is no free fluid in the pelvis. TRANSVAGINAL ULTRASOUND: The endometrial complex measures 3 mm in thickness. The right ovary measures 3.1 x 3.4 x 3.1 cm. The left ovary measures 2.7 x 2.1 x 2.7 cm. There is normal vascular flow in the ovaries. IMPRESSION: 1. Normal pelvis. Reviewed, dictated and finalized at location E. NG SUPERVISOR IMPRESSION: 1. Normal pelvis.
== END ==
PROVIDERS: PCP Obstetrics & Gynecology; Visit Provider Obstetrics & Gynecology
DX: N92.6 Irregular menstruation, unspecified (principal)
CPT/HCPCS: 76830; 76856

== ENCOUNTER 2024-03-06 13:35 | Emergency (ER) | payer OTHER, SELFPAY ==
[2024-03-06 13:41] VITALS: BP 102/71; PULSE 80; RESP 16; TEMP 36.3; O2SAT 99
--- NOTE | 2024-03-06 15:32 | ED.ABDPAIN ---
HPI - Abdominal Pain General Chief Complaint: Abdominal Pain Stated Complaint: Stomach Pain Time Seen by Provider: 03/06/24 14:00 Source: patient Mode of arrival: ambulatory Limitations: no limitations History of Present Illness HPI narrative: 43-year-old female presents with complaint of upper abdominal pain. Patient states that she ate breakfast donate, a eggs, tripathi, pancakes. Approximately 1 hour after eating she began having abdominal pain. Started to left upper quadrant and then moved to epigastric and right upper quadrant. Took Pepto. 30 minutes after pain did not improve she took Tums. States that she laid on heating pad, thought maybe would help pain. drove her to [facility] and on the way here pain became better. Now rates pain /10. No lower abdominal pain. Does report some mid back pain. No urinary symptoms. Denies nausea vomiting diarrhea. Patient has appointment in April for upper endoscopy and colonoscopy due to some ongoing bowel issues. No blood in stool today. Patient was seen in July at ER and diagnosed with gastritis, esophagitis. Was given medication for acid reflux. All Systems reviewed and negative except as noted above. Related Data Home Medications Medication Instructions Recorded Confirmed buspirone 15 mg tablet 15 mg PO TID PRN anxiety 09/12/19 03/06/24 sertraline 100 mg tablet 100 mg PO BID 09/12/19 03/06/24 cholecalciferol (vitamin D3) 25 25 mcg PO DAILY 03/12/21 03/06/24 mcg (1,000 unit) capsule vitamin B complex 1 cap PO DAILY 03/12/21 03/06/24 topiramate 25 mg tablet 25 mg PO BID 06/09/22 03/06/24 cetirizine 10 mg tablet (Zyrtec) 10 mg PO DAILY PRN Allergy Symptoms 07/15/23 03/06/24 hair growth supplement BYMOUTH 07/15/23 11/29/23 llsartplkulp-Yd-qkqm-minerals 18 tablet PO 07/15/23 11/29/23 mg-0.4 mg tablet dexmethylphenidate 10 mg tablet 10 mg PO BID 08/18/23 03/06/24 lactobacillus combination no.9 4 PO DAILY 11/29/23 11/29/23 billion cell capsule (Adult 50 Plus Probiotic) Allergies Allergy/AdvReac Type Severity Reaction Status Date / Time No Known Allergies Allergy Verified 03/06/24 13:49 Review of Systems Review of Systems: CONSTITUTIONAL: Denies fever, chills, or sweats. EYES: Denies visual changes, redness, or discharge. ENT: Denies rhinorrhea, congestion, sore throat, or otalgia. CARDIOVASCULAR: Denies chest pain, palpitations, or edema. RESPIRATORY: Denies cough or dyspnea. GASTROINTESTINAL: Reports upper abdominal pain. Denies nausea, vomiting, or diarrhea. GENITOURINARY: Denies dysuria or hematuria. SKIN: Denies rash or itching. MUSCULOSKELETAL: Denies back pain, joint pain, or myalgia. NEUROLOGIC: Denies headache, numbness, or weakness. PSYCHIATRIC: Denies anxiety or depression. All other systems reviewed are negative, except as documented in HPI. [facility] Past Medical History Medical History Abnormal CT scan, stomach Anxiety Change in bowel habits Cholelithiasis Diverticulosis CAESAR (generalized anxiety disorder) GERD (gastroesophageal reflux disease) Hematochezia History of abnormal cervical Pap smear HSV-1 (herpes simplex virus 1) infection Migraines Obesity Surgical History Surgical History delivery delivered (~2012) H/O dilation and curettage (~2015) H/O LEEP [place] teeth removed Family History Family History Father Hypertension Diabetes mellitus Alcoholism Mother Breast cancer Lung cancer Grandparent Lung cancer Breast cancer Cerebrovascular accident Social History Social History Smoking status: Former smoker Tobacco type: e-cigarettes/vaping Alcohol intake: current Substance use: never Lack of Transportation: No Current Housing: I Have Housing Concerned About
== END 2024-03-06 15:40 | disposition home or self-care (01) ==
PROVIDERS: Emergency Provider Nurse Practitioner Family
DX: R10.10 Upper abdominal pain, unspecified (principal); F41.9 Anxiety disorder, unspecified; Z87.891 Personal history of nicotine dependence
CPT/HCPCS: 81003; 99212; G0463

== ENCOUNTER 2024-03-13 17:29 | Outpatient (CLI) | payer OTHER, SELFPAY ==
[2024-03-13 17:48] LABS: Hemoglobin 11.5 g/dL (12.0-15.0); Mean Corpuscular HGB Conc 32.9 g/dL (32-36); Mean Corpuscular Hemoglobin 28.6 pg (27.0-31.0); Mean Corpuscular Volume 87.1 fL (78.0-102.0); Mean Platelet Volume 8.7 fl (9.2-11.8); Platelet Count Result 225 K/mm3 (150-420); Red Blood Count 4.02 M/mm3 (4.20-5.40); Red Cell Distribution Width 12.8 % (11.6-14.4); White Blood Count 6.7 K/mm3 (4.8-10.8)
[2024-03-13 18:19] LABS: Alanine Aminotransferase 28 U/L (14-59); Albumin Level 4.2 g/dL (3.4-5.0); Alkaline Phosphatase 52 U/L (46-116); Anion Gap 10 mmol/L (4-12); Aspartate Amino Transferase 26 U/L (15-37); Bilirubin,Total 0.3 mg/dL (0.00-1.00); Blood Urea Nitrogen 18 mg/dL (7-18); Calcium 8.9 mg/dL (8.5-10.1); Carbon Dioxide 27 mmol/L (21-32); Chloride 102 mmol/L (98-108); Estimated Glomerular Filt Rate > 60; Glucose 89 mg/dL (70-99); Lipase 68 U/L (16-77); Osmolality Calculated 288 mOsm/kg (285-295); Potassium 3.9 mmol/L (3.5-5.1); Sodium 139 mmol/L (136-145); Total Protein 7.4 g/dL (6.4-8.2)
[2024-03-13 18:21] LABS: CRP < 0.5 mg/dL (0.0-0.9)
[2024-03-13 18:39] LABS: Thyroid Stimulating Hormone 2.22 uIU/mL (0.36-3.74)
[2024-03-13 19:04] LABS: Erythrocyte Sedimentation Rate 10 mm/hr (0-15)
[2024-03-16 07:18] LABS: Thyroid Peroxidase Antibodies 1 IU/mL (<9)
[2024-03-17 03:28] LABS: Immunoglobulin A 206 mg/dL (47-310); TTG IGA AB <1.0 U/mL
== END 2024-03-13 17:30 | disposition home or self-care (01) ==
PROVIDERS: Internal Medicine; PCP Nurse Practitioner Family; Visit Provider Nurse Practitioner
DX: K21.9 Gastro-esophageal reflux disease without esophagitis (principal); K92.1 Melena; R19.4 Change in bowel habit; R93.3 Abnormal findings on diagnostic imaging of other parts of digestive tract; R79.89 Other specified abnormal findings of blood chemistry; R10.9 Unspecified abdominal pain
CPT/HCPCS: 36415; 80053; 82784; 83516; 83690; 84439; 84443; 85027; 85652; 86140; 86376

== ENCOUNTER 2024-03-23 04:19 | Day surgery (SDC) | payer OTHER, SELFPAY ==
[2024-03-15 12:33] VITALS: BMI 29.7
[2024-03-23 12:10] VITALS: BP 121/65; PULSE 85; RESP 18; TEMP 36.2; O2SAT 100
[2024-03-23] MEDS: LACTATED RINGERS 1,000 ML 150 ML IV CONT (12:29)
--- NOTE | 2024-03-23 12:36 | WPDANESEPPF ---
Anes - Initial Pre Proc Eval Procedure: Operation Date: 03/23/24 12:30 Proposed Procedures p Esophagogastroduodenoscopy & Colonoscopy - Benjamín Martinez MD Date/Time: 03/23/24 12:36 Surgeon: Benjamín Martinez MD Pre Op Diagnosis: melena,change in bowel habits,GERD,Abdom.pain Patient Data Age: 43 Gender: F Height: 1.7 m Weight: 86.2 kg Last Vital Signs Temp 97.1 F L 03/23/24 12:10 Pulse 85 03/23/24 12:10 Resp 18 03/23/24 12:10 BP 121/65 03/23/24 12:10 Pulse Ox 100 03/23/24 12:10 O2 Del Method Room Air 03/23/24 12:10 Allergies Allergy/AdvReac Type Severity Reaction Status Date / Time No Known Allergies Allergy Verified 03/23/24 12:08 Home Medications Medication Instructions Recorded Confirmed Type buspirone 15 mg tablet 15 mg PO TID PRN anxiety 09/12/19 03/15/24 History sertraline 100 mg tablet 100 mg PO BID 09/12/19 03/15/24 History vitamin B complex 1 cap PO DAILY 03/12/21 03/15/24 History topiramate 25 mg tablet 25 mg PO BID 06/09/22 03/15/24 History meclizine 25 mg tablet See Rx Instructions .Route 11/03/22 03/15/24 Rx .COMPLEX #14 tabs cetirizine 10 mg tablet (Zyrtec) 10 mg PO DAILY PRN Allergy Symptoms 07/15/23 03/15/24 History hair growth supplement 1 cap BYMOUTH BID 07/15/23 03/15/24 History dexmethylphenidate 10 mg tablet 10 mg PO BID PRN Anxiety 08/18/23 03/15/24 History galcanezumab-gnlm 120 mg/mL See Rx Instructions .Route 10/25/23 03/06/24 Rx subcutaneous pen injector .COMPLEX #1 mL (Emgality Pen) lactobacillus combination no.9 4 1 PO DAILY 11/29/23 11/29/23 History billion cell capsule (Adult 50 Plus Probiotic) cyclobenzaprine 10 mg tablet See Rx Instructions .Route 02/14/24 03/15/24 Rx .COMPLEX #20 tabs ubrogepant 50 mg tablet (Ubrelvy) See Rx Instructions .Route 02/14/24 03/15/24 Rx .COMPLEX #10 tabs norethindrone acetate 5 mg tablet 5 mg PO DAILY #90 tabs 02/22/24 03/15/24 Rx Magnesium Complex 1 cap PO DAILY 03/15/24 03/15/24 History Natures Bounty Probiotic 1 cap PO DAILY 03/15/24 03/15/24 History Vitamin D3 10,000 unit PO DAILY 03/15/24 03/15/24 History diclofenac sodium 75 mg 1 mg PO BID-TID PRN Pain 03/15/24 03/15/24 History tablet,delayed release drospirenone (contraceptive) 4 mg 1 tablet PO DAILY 03/15/24 03/15/24 History (28) tablet (Slynd) mecobalamin (vitamin B12) 2,000 mg PO DAILY 03/15/24 03/15/24 History fxurbncjkpzc-wlrchqqf-ftdc 1 tablet PO DAILY 03/15/24 03/15/24 History fumarate 18 mg-folic acid 400 mcg tablet (One-A-Day Women's Complete) montelukast 10 mg tablet See Rx Instructions .Route 03/23/24 Rx .COMPLEX #90 tabs Patient hx anesthesia problems: none Family hx anesthesia problems: none Results Review: All pre-operative results and documents have been reviewed as part of the pre-operative evaluation. [facility] Past Medical History Medical History Abnormal CT scan, stomach Anxiety Change in bowel habits Cholelithiasis Diverticulosis CAESAR (generalized anxiety disorder) GERD (gastroesophageal reflux disease) Hematochezia History of abnormal cervical Pap smear HSV-1 (herpes simplex virus 1) infection Migraines Obesity Surgical History Surgical History delivery delivered (~2012) H/O dilation and curettage (~2015) H/O LEEP [place] teeth removed Family History Family History Father Hypertension Diabetes mellitus Alcoholism Mother Breast cancer Lung cancer Grandparent Lung cancer Breast cancer Cerebrovascular accident Social History Social History Smoking packs per day: 0.5 Smoking cigarettes per day: 10.0 Years smoked: 15 Smoking pack-years: 7.50 Smoking status: Former smoker Tobacco type: cigarettes and e-c
--- NOTE | 2024-03-23 13:06 | PM.HPGS ---
History of Present Illness History of Present Illness Consent: Risks, benefits, and alternatives have been discussed and questions answered. Patient agrees to proceed with procedure. Chief complaint: melena,change in bowel habits,GERD,Abdom.pain Narrative: Mayra Membreno is a 43 year old female with intermittent llq pain for months, pain went away but recently came back again, CT scan negative, also GERD, serology for celiac negative. Never had scopes. Review of Systems Review of Systems: All systems reviewed & are unremarkable except as noted in HPI and below PMFSH Past Medical History Medical History Abnormal CT scan, stomach Anxiety Change in bowel habits Cholelithiasis Diverticulosis CAESAR (generalized anxiety disorder) GERD (gastroesophageal reflux disease) Hematochezia History of abnormal cervical Pap smear HSV-1 (herpes simplex virus 1) infection Migraines Obesity Surgical History Surgical History delivery delivered (~2012) H/O dilation and curettage (~2015) H/O LEEP [place] teeth removed Family History Family History Father Hypertension Diabetes mellitus Alcoholism Mother Breast cancer Lung cancer Grandparent Lung cancer Breast cancer Cerebrovascular accident Social History Social History Smoking packs per day: 0.5 Smoking cigarettes per day: 10.0 Years smoked: 15 Smoking pack-years: 7.50 Smoking status: Former smoker Tobacco type: cigarettes and e-cigarettes/vaping Additional smoking assessment comments: STARTED VAPING- Alcohol intake: current Alcohol use details: DRINKS Substance use: never Lack of Transportation: No Current Housing: I Have Housing Concerned About Future Housing: No Difficulty Paying Gas/Electric Bills: No Difficulty Paying for Meds: No Currently Unemployed: No Difficulty w/ Childcare or Family Care: No Living arrangements: with family Gender identity (if verbalized by the patient): Female Spiritual care concerns: No Agree to blood products: Yes Meds Home Medications and Allergies Home Medications Medication Instructions Recorded Confirmed Type buspirone 15 mg tablet 15 mg PO TID PRN anxiety 09/12/19 03/15/24 History sertraline 100 mg tablet 100 mg PO BID 09/12/19 03/15/24 History vitamin B complex 1 cap PO DAILY 03/12/21 03/15/24 History topiramate 25 mg tablet 25 mg PO BID 06/09/22 03/15/24 History meclizine 25 mg tablet See Rx Instructions .Route 11/03/22 03/15/24 Rx .COMPLEX #14 tabs cetirizine 10 mg tablet (Zyrtec) 10 mg PO DAILY PRN Allergy Symptoms 07/15/23 03/15/24 History hair growth supplement 1 cap BYMOUTH BID 07/15/23 03/15/24 History dexmethylphenidate 10 mg tablet 10 mg PO BID PRN Anxiety 08/18/23 03/15/24 History galcanezumab-gnlm 120 mg/mL See Rx Instructions .Route 10/25/23 03/06/24 Rx subcutaneous pen injector .COMPLEX #1 mL (Emgality Pen) lactobacillus combination no.9 4 1 PO DAILY 11/29/23 11/29/23 History billion cell capsule (Adult 50 Plus Probiotic) cyclobenzaprine 10 mg tablet See Rx Instructions .Route 02/14/24 03/15/24 Rx .COMPLEX #20 tabs ubrogepant 50 mg tablet (Ubrelvy) See Rx Instructions .Route 02/14/24 03/15/24 Rx .COMPLEX #10 tabs norethindrone acetate 5 mg tablet 5 mg PO DAILY #90 tabs 02/22/24 03/15/24 Rx Magnesium Complex 1 cap PO DAILY 03/15/24 03/15/24 History Natures Bounty Probiotic 1 cap PO DAILY 03/15/24 03/15/24 History Vitamin D3 10,000 unit PO DAILY 03/15/24 03/15/24 History diclofenac sodium 75 mg 1 mg PO BID-TID PRN Pain 03/15/24 03/15/24 History tablet,delayed release drospirenone (contraceptive) 4 mg 1 tablet PO DAILY 03/15/24 03/15/24 History (28) tablet (Slynd) mecobalamin (vitamin B12) 2,000
--- NOTE | 2024-03-23 13:22 | SUR.OPER ---
EGD ended 1317 colonoscopy started 1322
[2024-03-23 13:39] VITALS: BP 111/63; PULSE 75; RESP 22; O2SAT 100
[2024-03-23 13:49] VITALS: BP 96/57; PULSE 69; RESP 15; O2SAT 100
[2024-03-23 14:06] VITALS: BP 113/63; PULSE 70; RESP 15; O2SAT 100
== END 2024-03-23 14:10 | disposition home or self-care (01) ==
PROVIDERS: PCP Nurse Practitioner Family; Visit Provider Internal Medicine Gastroenterology
PROC: 0DJ08ZZ Inspection of Upper Intestinal Tract, Via Natural or Artificial Opening Endoscopic (ICD-10-PCS; CPT 43235; principal; 2024-03-23 12:30)
DX: Z12.11 Encounter for screening for malignant neoplasm of colon (principal); K57.30 Diverticulosis of large intestine without perforation or abscess without bleeding; K64.8 Other hemorrhoids; K44.9 Diaphragmatic hernia without obstruction or gangrene; K29.70 Gastritis, unspecified, without bleeding; K21.9 Gastro-esophageal reflux disease without esophagitis; F41.1 Generalized anxiety disorder; Z87.891 Personal history of nicotine dependence
CPT/HCPCS: 45378; 43239; 88305; J2001; J2704; J7120

== ENCOUNTER 2024-04-20 09:18 | Outpatient (CLI) | payer OTHER, SELFPAY ==
--- NOTE | ~2024-04-20 | NM_ITS ---
EXAMINATION: NM hepatobiliary wo pharm DATE: 04/20/2024 11:57 CDT INDICATION: Gallstones. COMPARISON: CT dated 08/02/2023. TECHNIQUE: 4.9 mCi Tc-99m mebrofenin (Choletec) was administered intravenously. Scintigraphic images of the abdomen were obtained for one hour. At the 1 hour time point, the patient drank 8 oz Ensure, and imaging was continued for 60 minutes. Gallbladder ejection fraction was calculated by the technol ogist. FINDINGS: There is normal clearance of radiotracer from the blood pool. There is homogeneous tracer u ptake by the liver. Activity progresses to the bowel and gallbladder. The gallbladder ejection fract ion is 100%. Note that with this technique, normal GBEF >= 33%. IMPRESSION: 1. Normal hepatobiliary scan Reviewed, dictated and finalized at location B.
== END 2024-04-20 09:19 | disposition home or self-care (01) ==
PROVIDERS: PCP Nurse Practitioner Family; Visit Provider Internal Medicine Gastroenterology
DX: K80.20 Calculus of gallbladder without cholecystitis without obstruction (principal); R10.9 Unspecified abdominal pain
CPT/HCPCS: 78226; A9537

== ENCOUNTER 2024-08-04 08:00 | Outpatient (CLI) | payer OTHER, SELFPAY ==
--- NOTE | ~2024-08-04 | CT_ITS ---
EXAMINATION: CT sinus wo con DATE: 08/04/2024 08:18 INDICATION: Chronic sinusitis TECHNIQUE: Computed tomography (CT) of the paranasal sinuses was performed without intravenous contra st. The dose-length product was 283.39 mGy-cm. Automated exposure control and iterative reconstructio n technique were employed. COMPARISON: CT dated 05/13/2022 FINDINGS: No significant mucosal thickening. Small mucous retention cyst right maxillary sinus. There is mild curvature of the nasal septum. No air-fluid levels. No mucoperiosteal reaction. Ostiomeatal units are patent. Mastoids are pneumatized. IMPRESSION: 1. Small mucous retention cyst right maxillary sinus. Reviewed, dictated and finalized at location B.
== END 2024-08-04 08:01 | disposition home or self-care (01) ==
PROVIDERS: PCP Nurse Practitioner Family; Visit Provider Psychiatry & Neurology Neurology
DX: J32.9 Chronic sinusitis, unspecified (principal)
CPT/HCPCS: 70486

== ENCOUNTER 2024-08-09 15:19 | Outpatient (CLI) | payer OTHER, SELFPAY ==
--- NOTE | ~2024-08-09 | XR_ITS ---
XR shoulder LT min 2V Ordering provider: Angelica Salazar NP History: . M25.512 - Pain in left shoulder . Comparison: None. FINDINGS: BONES: No acute fracture or dislocation. JOINT SPACES: The acromioclavicular joint is normal. The glenohumeral joint is normal. SOFT TISSUES: Normal. IMPRESSION: No acute osseous abnormality left shoulder. Reviewed, dictated and finalized at location A.
== END 2024-08-09 15:20 | disposition home or self-care (01) ==
LOC: CHSIMG 15:21
PROVIDERS: PCP Nurse Practitioner Family; Visit Provider Nurse Practitioner Family
DX: M25.512 Pain in left shoulder (principal)
CPT/HCPCS: 73030

== ENCOUNTER 2024-08-12 02:25 | Emergency (ER) | payer OTHER, SELFPAY ==
[2024-08-12] VITALS (8 sets, daily range): BP systolic 106–124; BP diastolic 60–79; PULSE 63–75; RESP 10–18; TEMP 36.6–36.7; O2SAT 97–100
--- NOTE | ~2024-08-12 | XR_ITS ---
EXAMINATION: XR chest 2V DATE: 08/12/2024 02:51 INDICATION: Anterior chest pain and tightness TECHNIQUE: PA and lateral views of the chest were obtained. COMPARISON: None FINDINGS: The lungs are clear with no focal airspace opacities, pulmonary edema, pleural effusion or pneumothor ax. The cardiomediastinal silhouette is normal. Mild thoracic spondylosis. IMPRESSION: 1. No acute cardiopulmonary disease. Reviewed, dictated and finalized at location A.
--- NOTE | 2024-08-12 02:30 | ED_ITS ---
HPI - Chest Pain General Chief Complaint: Chest Pain Stated Complaint: Chest Pain Time Seen by Provider: 08/12/24 02:29 Source: patient Mode of arrival: ambulatory Limitations: no limitations History of Present Illness HPI narrative: Patient is a 44-year-old female with some chest pain this evening. She awoke with chest pain. It is substernal in nature and radiates to the neck and left upper extremity. It is a pressure-like and heaviness that goes from the mid substernal all the way back up to her throat region. She has history of GERD and problems related to GERD. MD complaint: chest pain and chest heaviness Pertinent past history: other ( None) Onset (ago): hour(s) (2) Timing of current episode: constant and still present Prior episodes: No Onset: during rest and awoke with symptoms Pain location: substernal Pain radiation: left arm, back and neck Severity: moderate Pain scale (0-10): 4 Quality: tightness and heaviness Relieving factors: nothing Exacerbating factors: nothing Context: other ( none) Treatment prior to arrival: none Risk Factors Coronary artery disease risk factors: none Thoracic aortic dissection risk factors: none Related Data Home Medications Medication Instructions Recorded Confirmed buspirone 15 mg tablet 15 mg PO TID PRN anxiety 09/12/19 08/12/24 sertraline 100 mg tablet 100 mg PO BID 09/12/19 08/12/24 dexmethylphenidate 10 mg tablet 10 mg PO BID PRN Anxiety 08/18/23 08/12/24 lactobacillus combination no.9 4 1 mmu cells PO DAILY 11/29/23 08/12/24 billion cell capsule (Adult 50 Plus Probiotic) Magnesium Complex 1 cap PO DAILY 03/15/24 08/12/24 Vitamin D3 10,000 unit PO DAILY 03/15/24 08/12/24 mecobalamin (vitamin B12) 2,000 mg PO DAILY 03/15/24 08/12/24 [id number] 1 tablet PO DAILY 03/15/24 08/12/24 fumarate 18 mg-folic acid 400 mcg tablet (One-A-Day Women's Complete) diclofenac sodium 75 mg 75 mg PO BID 08/12/24 08/12/24 tablet,delayed release Allergies Allergy/AdvReac Type Severity Reaction Status Date / Time No Known Allergies Allergy Verified 08/09/24 15:00 Review of Systems Review of Systems: All systems reviewed & are unremarkable except as noted in HPI and below Constitutional: Constitutional: Reports no additional constitutional complaints Eyes: Eyes: Reports no additional eye complaints ENT: Reports system reviewed and no additional complaints, except as documented Cardiovascular: Cardiovascular: Reports no additional cardiovascular complaints Respiratory: Respiratory: Reports no additional respiratory complaints Gastrointestinal: Gastrointestinal: Reports no additional gastrointestinal complaints Genitourinary: Genitourinary: Reports no additional female genitourinary complaints Musculoskeletal: Musculoskeletal: Reports no additional musculoskeletal complaints Integumentary/Breasts: Skin/Breast: Reports system reviewed and no additional complaints, except as docu Neurologic: Reports system reviewed and no additional complaints, except as documented Psychiatric: Psychiatric: Reports no additional psychiatric complaints Endocrine: Endocrine: Reports no additional endocrine complaints Hematologic/Lymphatic: Hematologic/Lymphatic: Reports no additional hematologic/lymphatic complaints Allergic/Immunologic: Allergic/Immunologic: Reports no additional al lergic/immunologic complaints PMFSH Past Medical History Medical History Abdominal pain Abnormal CT scan, stomach Anxiety Change in bowel habits Cholelithiasis Diverticulosis CAESAR (generalized anxiety disorder) GERD (gastroesophageal reflux disease) Hematochezia History of abnormal cervical Pap smear HSV-1 (herpes simplex virus 1) infection Migraine syndrome Migraines Obesity Recurrent sinusitis Surgical History Surgical History delivery delivered (~2012) H/O dilation and curettage (~2015) H/O LEEP [place] teeth removed Family History Family History Father Hypertension Diabetes mellitus Alcoholism Mother Breast cancer Lung cancer Grandparent Lung cancer Breast cancer Cerebrovascular accident Social History Social History Smoking packs per day: 0.5 Smoking cigarettes per day: 10.0 Years smoked: 15 Smoking pack-years: 7.50 Smoking status: Former smoker Tobacco type: cigarettes and e-cigarettes/vaping Additional smoking assessment comments: STARTED VAPING- Alcohol intake: current Alcohol use details: DRINKS Substance use: never Lack of Transportation: No Current Housing: I Have Housing Concerned About Future Housing: No Difficulty Paying Gas/Electric Bills: No Difficulty Paying for Meds: No Currently Unemployed: No Difficulty w/ Childcare or Family Care: No Living arrangements: with family Gender identity (if verbalized by the patient): Female Spiritual care concerns: No Agree to blood products: Yes Exam Const: General: healthy appearing Nutritional Appearance: well nourished Orientation/consciousness: patient oriented x3 Limitations: no limitations HENMT: Head: normal to inspection Ears: external ears normal Face/Nose/Sinus: Normal external nose present Eyes: Conjunctivae: conjunctivae normal Pupils: Equal, round and reactive pupils present EOM: EOMs intact bilaterally Neck: Neck: normal visual inspection Chest: Chest palpation & inspection: normal inspection of the chest Resp: Effort & Inspection: normal respiratory effort and not labored Ausc ultation: clear to auscultation bilaterally and no crackles Cardio: Rate: regular rate Rhythm: regular rhythm Heart sounds: no murmurs GI: Inspection: non-distended GI Palp: Yes Soft to palpation and No Tenderness to palpation present (GI) Auscultation: normal bowel sounds : General: Yes bladder normal to palpation Back/Spine/Pelvis: Back: no CVA tenderness Skin: General skin exam: normal color Rashes: no rashes Wounds: no wounds Neuro: General: patient oriented x3 Cranial nerves: Yes Nystagmus not present Speech: normal speech Gait exam (Neuro): Normal gait present Extrem: General: normal to inspection Psych: Mental Status: mental status grossly normal Affect: normal affect Attitude: cooperative Course Vital Signs Vital signs: Vital Signs Temperature 36.7 C 08/12/24 02:30 Pulse Rate 70 08/12/24 02:30 Respiratory Rate 18 08/12/24 02:30 Blood Pressure 124/79 08/12/24 02:30 Pulse Oximetry 100 08/12/24 02:30 Oxygen Delivery Room Air 08/12/24 02:30 Temperature 36.6 C 08/12/24 05:48 Pulse Rate 72 08/12/24 05:48 Respiratory Rate 18 08/12/24 05:48 Blood Pressure 106/60 08/12/24 05:48 Pulse Oximetry 100 08/12/24 05:48 Oxygen Delivery Room Air 08/12/24 05:48 MDM - Chest Pain MDM Narrative Medical decision making narrative: patient is a 44-year-old female with chest pain. We will do a cardiac workup at this time. We will give her a GI cocktail to see if that helps resolve some of the pain. this was atypical chest pain. Troponin x2 was negative. She can have outpatient further workup at this time. Lab Data Attestation: I reviewed the patient's lab results. 08/12/24 02:42 08/12/24 02:42 Labs: Lab Results 08/12/24 08/12/24 08/12/24 Range/Units 02:42 03:29 04:54 WBC 7.1 (4.8-10.8) K/mm3 RBC 4.29 (4.20-5.40) M/mm3 Hgb 12.5 (12.0-15.0) g/dL Hct 37.4 (35.0-49.0) % MCV 87.2 (78.0-102.0) fL MCH 29.1 (27.0-31.0) pg MCHC 33.4 (32-36) g/dL RDW 12.4 (11.6-14.4) % Plt Count 252 (150-420) K/mm3 MPV 8.8 L (9.2-11.8) fl Immature Gran % (Auto) 0.1 H (0.0-0.0) % Neut % (Auto) 59.9 (50.0-70.0) % Lymph % (Auto) 27.4 (18.0-42.0) % [place] % (Auto) 6.2 (2.0-11.0) % Eos % (Auto) 6.0 (1.0-6.0) % Baso % (Auto) 0.4 (0.0-1.0) % Lymph # (Auto) 1.93 (1.10-4.50) K/mm3 [place] # (Auto) 0.44 (0.10-0.90) K/mm3 Eos # (Auto) 0.42 (0.02-0.50) K/mm3 Baso # (Auto) 0.03 (0.00-0.10) K/mm3 Abs Immat Gran (auto) 0.01 H (0.00-0.00) K/mm3 Absolute Neuts (auto) 4.22 (1.70-7.20) K/mm3 Absolute Nucleated RBC 0.00 (0.00-0.00) K/mm3 Nucleated RBC % 0.0 (0-0.0) % PT 10.4 (9.50-12.1) Seconds INR 0.9 APTT 27.7 (23.9-30.70) Sec D-Dimer 0.45 (0.19-0.50) mg/L Sodium 139 (136-145) mmol/L Potassium 3.6 (3.5-5.1) mmol/L Chloride 102 (98-108) mmol/L Carbon Dioxide 26 (21-32) mmol/L Anion Gap 11 (4-12) mmol/L BUN 17 (7-18) mg/dL Creatinine 0.97 (0.55-1.02) mg/dL Estim Creat Clear Calc 75 ml/min Estimated GFR > 60 (59 - ) Glucose 93 (70-99) mg/dL Calculated Osmolality 289 (285-295) mOsm/kg Calcium 8.9 (8.5-10.1) mg/dL Total Bilirubin 0.5 (0.00-1.00) mg/dL AST 26 (15-37) U/L ALT 48 (14-59) U/L Alkaline Phosphatase 81 (46-116) U/L Troponin I < 4.0 < 4.0 (0.00-60.4) ng/L NT-Pro-B Natriuret Pep 28 (0-125) pg/mL Total Protein 7.2 (6.4-8.2) g/dL Albumin 3.6 (3.4-5.0) g/dL Lipase 74 (16-77) U/L Urine Color Light yellow (Yellow) Urine Appearance Clear (Clear) Urine pH 5.5 (5.0-8.0) Ur Specific [place] <= 1.005 L (1.010-1.020) Urine Protein Negative (Negative) Urine Glucose (UA) Negative (Negative) Urine Ketones Negative (Negative) Ur Blood (Man) Negative (Negative) Urine Nitrate Negative (Negative) Urine Bilirubin Negative (Negative) Urine Urobilinogen 0.2 (0.2-1.0) mg/dL Leukocyte Esterase Rfl Negative (Negative) LOURDES/UL Urine Test Negative Imaging Data Attestation: I personally reviewed and interpreted this imaging study as follows: My impression: My initial reading of the chest x-ray shows no acute process; pending final Radiology reading this morning ECG Data EKG #1: Attestation: I personally reviewed and interpreted this ECG as follows: ECG completion date: 08/12/24 ECG completion time: 03:04 EKG Interpretation: normal rate, no ectopy, non-specific ST changes, normal QRS, normal QT and NL axis Discharge Plan Discharge Clinical Impression: Atypical chest pain Patient Disposition: Home, Self-Care Condition: Stable Instructions: Chest Pain (ED) Additional Instructions: Please follow-up with the primary doctor next week. I suggest further cardiac outpatient testing with her primary doctor. Come back to the ER with any worsen ing symptoms. Prescriptions: No Action diclofenac sodium 75 mg tablet,delayed release (DR/EC) 75 mg PO BID Adult 50 Plus Probiotic 4 billion cell capsule 1 mmu cells PO DAILY nortriptyline [Pamelor] 25 mg capsule 25 mg PO QHS Qty: 30 6RF Rx Instructions: may increase to 2 capsules at bedtime after 2 weeks if necessary Ubrelvy 50 mg tablet See Rx Instructions .ROUTE .COMPLEX Qty: 10 2RF Dose Instruction: TAKE 1 TABLET BY MOUTH ONCE A SINGLE DOSE MAY REPEAT ONCE IN >=2 HOURS AFTER FIRST DOSE IF NEEDED Rx Instructions: TAKE 1 TABLET BY MOUTH ONCE A SINGLE DOSE MAY REPEAT ONCE IN >=2 HOURS AFTER FIRST DOSE IF NEEDED Emgality Pen 120 mg/mL pen injector See Rx Instructions .ROUTE .COMPLEX Qty: 1 6RF Dose Instruction: INJECT 120 MG SUBCUTANEOUSLY MONTHLY Rx Instructions: INJECT 120 MG SUBCUTANEOUSLY MONTHLY buspirone 15 mg tablet 15 mg PO TID PRN (Reason: anxiety) sertraline 100 mg tablet 100 mg PO BID dexmethylphenidate 10 mg tablet 10 mg PO BID PRN (Reason: Anxiety) Rx Instructions: administer doses at least 4 hours apart One-A-Day Women's Complete 18 mg iron- 400 mcg Tablet 1 tablet PO DAILY Magnesium Complex 1 cap PO DAILY Vitamin D3 10,000 unit PO DAILY mecobalamin (vitamin B12) 2,000 mg PO DAILY montelukast 10 mg tablet See Rx Instructions .ROUTE .COMPLEX Qty: 90 1RF Dose Instruction: TAKE 1 TABLET BY MOUTH DAILY Rx Instructions: TAKE 1 TABLET BY MOUTH DAILY omeprazole 20 mg capsule,delayed release(DR/EC) 20 mg PO .daily Qty: 90 2RF Follow-up/Referrals: Geilhausen,Angelica M., [employer] [Primary Care Provider] - Time of Disposition: 05:20
--- NOTE | 2024-08-12 02:30 | ECG_ITS ---
Test Date: 2024-08-12 02:40:12 Measurements Intervals [place] Rate: 70 P: 49 OR: 175 QRS: 64 QRSD: 100 T: 51 QT: 397 QTc: 429 Interpretive Statements SINUS RHYTHM DELAYED PRECORDIAL R/S TRANSITION BASELINE ARTIFACT- I, II, AVR BORDERLINE ECG No previous ECG available for comparison Electronically Signed On 08-12-2024 08:10:27 CDT by Rene Dunn D.O.
[2024-08-12 02:45] LABS: Basophils Absolute Auto 0.03 K/mm3 (0.00-0.10); Basophils Percent Auto 0.4 % (0.0-1.0); Eosinophils Absolute Auto 0.42 K/mm3 (0.02-0.50); Hematocrit 37.4 % (35.0-49.0); Hemoglobin 12.5 g/dL (12.0-15.0); Immature Granulocyte Absolute 0.01 K/mm3 (0.00-0.00); Immature Granulocyte Percent A 0.1 % (0.0-0.0); Lymphocytes Absolute Auto 1.93 K/mm3 (1.10-4.50); Lymphocytes Percent Auto 27.4 % (18.0-42.0); Mean Corpuscular HGB Conc 33.4 g/dL (32-36); Mean Corpuscular Hemoglobin 29.1 pg (27.0-31.0); Mean Corpuscular Volume 87.2 fL (78.0-102.0); Mean Platelet Volume 8.8 fl (9.2-11.8); Monocytes Absolute Auto 0.44 K/mm3 (0.10-0.90); Monocytes Percent Auto 6.2 % (2.0-11.0); Neutrophils Absolute Auto 4.22 K/mm3 (1.70-7.20); Neutrophils Percent Auto 59.9 % (50.0-70.0); Platelet Count Result 252 K/mm3 (150-420); Red Blood Count 4.29 M/mm3 (4.20-5.40); Red Cell Distribution Width 12.4 % (11.6-14.4); White Blood Count 7.1 K/mm3 (4.8-10.8)
[2024-08-12 03:03] LABS: D Dimer 0.45 mg/L (0.19-0.50); INR 0.9; Partial Thromboplastin Time 27.7 Sec (23.9-30.70); Prothrombin Time 10.4 Seconds (9.50-12.1)
[2024-08-12] MEDS: MAG HYDROX/ALUMINUM HYD/SIMETH 30 ML, PHENobarb/HYOSCY/ATROPINE/SCOP 32.4 MG, LIDOCAINE... PO (03:08)
[2024-08-12 03:11] LABS: Alanine Aminotransferase 48 U/L (14-59); Albumin Level 3.6 g/dL (3.4-5.0); Alkaline Phosphatase 81 U/L (46-116); Anion Gap 11 mmol/L (4-12); Aspartate Amino Transferase 26 U/L (15-37); Bilirubin,Total 0.5 mg/dL (0.00-1.00); Blood Urea Nitrogen 17 mg/dL (7-18); Calcium 8.9 mg/dL (8.5-10.1); Carbon Dioxide 26 mmol/L (21-32); Chloride 102 mmol/L (98-108); Estimated CRCL calculation 75 ml/min; Estimated Glomerular Filt Rate > 60; Glucose 93 mg/dL (70-99); Lipase 74 U/L (16-77); NT Pro B Type Natriuretic Pept 28 pg/mL (0-125); Osmolality Calculated 289 mOsm/kg (285-295); Potassium 3.6 mmol/L (3.5-5.1); Sodium 139 mmol/L (136-145); Total Protein 7.2 g/dL (6.4-8.2)
[2024-08-12 03:20] LABS: Troponin I < 4.0 ng/L (0.00-60.4)
[2024-08-12 03:28] LABS: Add Urine Microscopic? NO; Appearance Urine Clear (Clear); Bilirubin Urine Negative (Negative); Blood Urine Negative (Negative); Color Urine Light Yellow (Yellow); Glucose Urine UA Negative (Negative); Ketones Urine Negative (Negative); Leukocyte Esterase Ur Negative LEU/UL (Negative); Nitrate Urine Negative (Negative); Protein Urine Negative (Negative); Specific Grav Ur <= 1.005 (1.010-1.020); Urobilinogen Urine 0.2 mg/dL (0.2-1.0); pH Urine 5.5 (5.0-8.0)
[2024-08-12 03:29] LABS: Pregnancy On Board Control Positive; Urine Pregnancy Test Negative
--- NOTE | 2024-08-12 03:54 | PC.NURSE ---
Pt resting, VSS, continuing to monitor, pt informed that a 2 hr trop will be drawn. Call clark at pt side.
[2024-08-12 05:37] LABS: Troponin I < 4.0 ng/L (0.00-60.4)
== END 2024-08-12 05:48 | disposition home or self-care (01) ==
PROVIDERS: Emergency Provider Emergency Medicine; PCP Nurse Practitioner Family
DX: R07.89 Other chest pain (principal); Z79.899 Other long term (current) drug therapy; Z87.891 Personal history of nicotine dependence
CPT/HCPCS: 36415; 71046; 80053; 81003; 81025; 83690; 83880; 84484; 85025; 85380; 85610; 85730; 93005; 99284; A9270

== ENCOUNTER 2024-09-13 01:24 | Inpatient (IN) | payer OTHER, SELFPAY ==
[2024-09-13] VITALS (17 sets, daily range): BP systolic 101–165; BP diastolic 57–99; PULSE 58–85; RESP 14–20; TEMP 36.1–36.6; O2SAT 97–100
--- NOTE | ~2024-09-13 | XR_ITS ---
EXAMINATION: XR ERCP DATE: 09/15/2024 14:41 INDICATION: Hyperbilirubinemia. TECHNIQUE: 3 spot fluoroscopic images of the right upper quadrant were obtained during endoscopic ret rograde cholangiopancreatography (ERCP). Fluoroscopy exposure time was 153 seconds. COMPARISON: CT abdomen and pelvis 09/13/2024 FINDINGS: The endoscope is in the second portion of the duodenum. The common duct is dilated. Images demonstrate balloon sweeping of the common duct. IMPRESSION: 1. Dilated common duct. Please refer to the ERCP procedure note for additional details. Reviewed, dictated and finalized at location A. [employer] ASSOCIATE
--- NOTE | ~2024-09-13 | CT_ITS ---
CT of the Abdomen and Pelvis: Indication: Abdominal pain Technique: 2.5 mm axial scans were obtained through the abdomen and pelvis following intravenous adm inistration of 100 cc of Omnipaque 350. Dose reduction technique was used on this scan by utilizing a utomated exposure control and iterative reconstruction technique. The dose-length product (DLP) was 8 44.69 mGy-cm. COMPARISON: 08/02/2023 Findings: Scans through the lung bases are unremarkable. The spleen, pancreas, adrenals and right kidney are within normal limits. Gallbladder is distended, w ith mild wall thickening and probable small stones. There is mild intrahepatic biliary dilatation. Co mmon bile duct measures up to 11 mm. No parenchymal abnormality of the liver seen. 4 mm nonobstructin g left renal stone present. No evidence of aortic aneurysm. No lymphadenopathy. No bowel obstruction or bowel wall thickening. There is no evidence to suggest acute appendicitis. Images through the pelvis were performed. Urinary bladder unremarkable. Small ovarian cysts are prese nt. Small amount of free fluid present in the pelvis. Impression: Distended gallbladder with mild wall thickening and cholelithiasis. Appearance suggests superimposed acute cholecystitis. Consider HIDA scan for further evaluation as indicated. Mild dilatation of the common bile duct and mild intrahepatic biliary dilatation. Consider MRCP to as sess for common duct stone as indicated. No evidence for acute pancreatitis. Reviewed, dictated and finalized at [facility]. 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 Appearance suggests superimposed acute cholecystitis. Consider HIDA scan for further evalu ation as indicated. Mild dilatation of the common bile duct and mild intrahepatic biliary dilatatio n. Consider MRCP to assess for common duct stone as indicated. No evidence for acute pancreatitis.
--- NOTE | ~2024-09-13 | XR_ITS ---
EXAMINATION: XR cholangiogram surg 1st inj DATE: 09/13/2024 15:17 INDICATION: Acute cholecystitis. TECHNIQUE: 152 fluoroscopic images of the right upper quadrant were obtained during intraoperative ch olangiography performed by the surgeon. I was not present in the operating room. Fluoroscopy exposure time was 39 seconds. COMPARISON: CT abdomen and pelvis 09/13/2024 FINDINGS: There is a catheter in the cystic duct. There is intrahepatic and extrahepatic biliary duct dilatation. No significant contrast passes to the duodenum. IMPRESSION: 1. Worsened intrahepatic and extrahepatic biliary duct dilatation with stone versus stricture in the distal common bile duct. Reviewed, dictated and finalized at location A. OR [employer] ARCHITECT IMPRESSION: 1. Worsened intrahepatic and extrahepatic biliary duct dilatation with stone ve rsus stricture in the distal common bile duct.
[2024-09-13 01:40] LABS: Basophils Percent Auto 0.4 % (0.2-1.2); Eosinophils Absolute Auto 0.4 K/mm3 (0-0.3); Eosinophils Percent Auto 4.6 % (0-4.4); Hematocrit 37.5 % (37.0-47.0); Hemoglobin 12.7 g/dL (12.0-15.0); Immature Granulocyte Absolute 0.02 K/mm3 (0.00-0.031); Immature Granulocyte Percent A 0.2 % (0-0.5); Lymphocytes Absolute Auto 2.81 K/mm3 (0.9-3.2); Lymphocytes Percent Auto 33.7 % (18.3-44.2); Mean Corpuscular HGB Conc 33.9 g/dl (32-36); Mean Corpuscular Hemoglobin 29.5 pg (26-34); Mean Corpuscular Volume 87.2 fl (80-100); Mean Platelet Volume 8.7 fl (7.4-10.4); Monocytes Absolute Auto 0.7 K/mm3 (0.1-0.6); Monocytes Percent Auto 8.3 % (2.6-8.5); Neutrophils Absolute Auto 4.4 K/mm3 (1.3-6.7); Neutrophils Percent Auto 52.8 % (45.5-73.1); Platelet Count Result 260 k/mm3 (150-375); Red Cell Distribution Width 13.2 % (11.5-14.5); White Blood Count 8.3 K/mm3 (4.5-10.0)
[2024-09-13 01:51] LABS: BEDSIDEPREGUCG Negative (Negative)
[2024-09-13 01:53] LABS: Alanine Aminotransferase 42 U/L (6-35); Albumin Level 4.8 g/dL (3.5-5.1); Alkaline Phosphatase 60 U/L (38-126); Anion Gap 8 mmol/L (4-12); Aspartate Amino Transferase 33 U/L (14-36); Bilirubin,Total 0.4 mg/dL (0.2-1.3); Blood Urea Nitrogen 22 mg/dL (7-17); Calcium 10.1 mg/dL (8.4-10.2); Carbon Dioxide 24 mmol/L (22-30); Chloride 105 mmol/L (98-107); Estimated CRCL calculation 64 ml/min; Estimated Glomerular Filt Rate 54; Glucose 86 mg/dL (65-110); Lipase 304 U/L (23-300); Potassium 3.8 mmol/L (3.4-5.0); Sodium 137 mmol/L (137-145)
[2024-09-13 01:55] LABS: Add Urine Microscopic? NO; Appearance Urine Clear (Clear); Bilirubin Urine Negative (Negative); Blood Urine Negative (Negative); Color Urine Yellow (Yellow); Glucose Urine UA Negative (Negative); Ketones Urine Negative (Negative); Leukocyte Esterase Ur Negative LEU/UL (Negative); Nitrate Urine Negative (Negative); Protein Urine Negative (Negative); Specific Grav Ur 1.021 (1.001-1.035); Urobilinogen Urine 0.2 mg/dL (<2.0); pH Urine 6.5 (5.0-9.0)
[2024-09-13] MEDS: ONDANSETRON INJ 4 MG/2 ML VIAL IV PUSH ×2 (02:45→16:10)
[2024-09-13] MEDS: MORPHINE SULFATE (*CRX) 4 MG/ML INJ IV PUSH ×2 (02:45→06:02)
[2024-09-13] MEDS: SODIUM CHLORIDE 0.9% IV 1,000 ML 999 ML IV CONT (02:45)
--- NOTE | 2024-09-13 03:33 | ED_ITS ---
HPI - General Adult General Chief complaint: Abdominal Pain Stated complaint: R sided abd/flank pain Time Seen by Provider: 09/13/24 02:33 History of Present Illness HPI narrative: Patient 44-year-old female who presents emergency department with chief complaint of right-sided abdominal pain and flank pain patient reports pain started about 1 hour ago reports that the is similar to what she has had before in the past except worse the patient does report that she has prior history of gallstones but has not followed up with a surgeon. Related Data Home Medications Medication Instructions Recorded Confirmed buspirone 15 mg tablet 15 mg PO TID PRN anxiety 09/12/19 08/16/24 sertraline 100 mg tablet 100 mg PO BID 09/12/19 08/16/24 dexmethylphenidate 10 mg tablet 10 mg PO BID PRN Anxiety 08/18/23 08/16/24 lactobacillus combination no.9 4 1 mmu cells PO DAILY 11/29/23 08/16/24 billion cell capsule (Adult 50 Plus Probiotic) Magnesium Complex 1 cap PO DAILY 03/15/24 08/16/24 Vitamin D3 10,000 unit PO DAILY 03/15/24 08/16/24 mecobalamin (vitamin B12) 2,000 mg PO DAILY 03/15/24 08/16/24 rxijwrnpozpq-djwszgjf-kuay 1 tablet PO DAILY 03/15/24 08/16/24 fumarate 18 mg-folic acid 400 mcg tablet (One-A-Day Women's Complete) diclofenac sodium 75 mg 75 mg PO BID 08/12/24 08/16/24 tablet,delayed release Allergies Allergy/AdvReac Type Severity Reaction Status Date / Time No Known Allergies Allergy Verified 09/13/24 01:24 Review of Systems Review of Systems: A 10 system review of systems was completed on the patient and is negative except for what is stated in the HPI. Nursing and ancillary documentation was reviewed. [facility] Past Medical History Medical History Abdominal pain Abnormal CT scan, stomach Anxiety Change in bowel habits Cholelithiasis Diverticulosis CAESAR (generalized anxiety disorder) GERD (gastroesophageal reflux disease) Hematochezia History of abnormal cervical Pap smear HSV-1 (herpes simplex virus 1) infection Migraine syndrome Migraines Obesity Recurrent sinusitis Surgical History Surgical History delivery delivered (~2012) H/O dilation and curettage (~2015) H/O LEEP [place] teeth removed Family History Family History Father Hypertension Diabetes mellitus Alcoholism Mother Breast cancer Lung cancer Grandparent Lung cancer Breast cancer Cerebrovascular accident Social History Social History Smoking packs per day: 0.5 Smoking cigarettes per day: 10.0 Years smoked: 15 Smoking pack-years: 7.50 Smoking status: Former smoker Tobacco type: cigarettes and e-cigarettes/vaping Additional smoking assessment comments: STARTED VAPING- Alcohol intake: current Alcohol use details: DRINKS Substance use: never Lack of Transportation: No Current Housing: I Have Housing Concerned About Future Housing: No Difficulty Paying Gas/Electric Bills: No Difficulty Paying for Meds: No Currently Unemployed: No Difficulty w/ Childcare or Family Care: No Living arrangements: with family Gender identity (if verbalized by the patient): Female Spiritual care concerns: No Agree to blood products: Yes Exam Narrative: GENERAL: Well-appearing, well-nourished, and in no acute distress. HEAD: Normocephalic, atraumatic. EYES: PERRLA and EOMI. ENT: Nares clear, no rhinorrhea or epistaxis. Mucous membranes moist. NECK: Supple. CHEST: Clear to auscultation. No respiratory distress. HEART: Regular rate and rhythm. No murmur heard. Normal peripheral pulses. ABDOMEN: Soft, tenderness to palpation right upper quadrant, nondistended, normal active bowel sounds. EXTREMITIES: Normal range of motion. No edema. SKIN: Warm, dry, no rash. NEURO: No focal deficits. Alert and oriented x3. PSYCH: Normal mood and affect. Course Vital Signs Vital signs: Vital Signs Temperature 36.5 C 09/13/24 01:26 Pulse Rate 75 09/13/24 01:26 Respiratory Rate 20 09/13/24 01:26 Blood Pressure 165/99 H 09/13/24 01:26 Pulse Oximetry 100 09/13/24 01:26 Oxygen Delivery Room Air 09/13/24 01:26 Temperature 36.5 C 09/13/24 01:26 Pulse Rate 69 09/13/24 04:00 Respiratory Rate 14 09/13/24 04:00 Blood Pressure 109/66 09/13/24 04:00 Pulse Oximetry 99 09/13/24 04:00 Oxygen Delivery Room Air 09/13/24 01:26 Medical Decision Making MDM Narrative Medical decision making narrative: Differential diagnosis includes cholecystitis, pancreatitis, intra-abdominal infection, Laboratory studies were obtained on the patient showed a white count of 4.3 electrolytes are within normal limits bilirubin was 0.4 AST was 33 ALT was 42 lipase was 304 urinalysis showed no evidence UTI CT scan of the abdomen pelvis showed distended gallbladder with diffuse collateral wall thickening concerning for acute cholecystitis there is also a dilated common bile duct at 11 mm with no definite obstructing stone Vital Signs Vital Signs: Vital Signs Temperature 36.5 C 09/13/24 01:26 Pulse Rate 75 09/13/24 01:26 Respiratory Rate 20 09/13/24 01:26 Blood Pressure 165/99 H 09/13/24 01:26 Pulse Oximetry 100 09/13/24 01:26 Oxygen Delivery Room Air 09/13/24 01:26 Temperature 36.5 C 09/13/24 01:26 Pulse Rate 69 09/13/24 04:00 Respiratory Rate 14 09/13/24 04:00 Blood Pressure 109/66 09/13/24 04:00 Pulse Oximetry 99 09/13/24 04:00 Oxygen Delivery Room Air 09/13/24 01:26 Lab Data 09/13/24 01:33 09/13/24 01:33 Labs: Lab Results 09/13/24 09/13/24 09/13/24 Range/Units 01:33 01:40 01:48 WBC 8.3 (4.5-10.0) K/mm3 RBC 4.30 (4.2-5.4) M/mm3 Hgb 12.7 (12.0-15.0) g/dL Hct 37.5 (37.0-47.0) % MCV 87.2 (80-100) fl MCH 29.5 (26-34) pg MCHC 33.9 (32-36) g/dl RDW 13.2 (11.5-14.5) % Plt Count 260 (150-375) k/mm3 MPV 8.7 (7.4-10.4) fl Immature Gran % (Auto) 0.2 (0-0.5) % Neut % (Auto) 52.8 (45.5-73.1) % Lymph % (Auto) 33.7 (18.3-44.2) % [place] % (Auto) 8.3 (2.6-8.5) % Eos % (Auto) 4.6 H (0-4.4) % Baso % (Auto) 0.4 (0.2-1.2) % Lymph # (Auto) 2.81 (0.9-3.2) K/mm3 [place] # (Auto) 0.7 H (0.1-0.6) K/mm3 Eos # (Auto) 0.4 H (0-0.3) K/mm3 Baso # (Auto) 0.0 (0.0-0.1) K/mm3 Abs Immat Gran (auto) 0.02 (0.00-0.031) K/mm3 Absolute Neuts (auto) 4.4 (1.3-6.7) K/mm3 Absolute Nucleated RBC 0.000 (0.0-0.012) K/mm3 Nucleated RBC % 0.0 (0.0-0.2) % Sodium 137 (137-145) mmol/L Potassium 3.8 (3.4-5.0) mmol/L Chloride 105 (98-107) mmol/L Carbon Dioxide 24 (22-30) mmol/L Anion Gap 8 (4-12) mmol/L BUN 22 H (7-17) mg/dL Creatinine 1.10 H (0.7-1.0) mg/dL Estim Creat Clear Calc 64 ml/min Estimated GFR 54 L (59 - ) Glucose 86 (65-110) mg/dL Calcium 10.1 (8.4-10.2) mg/dL Total Bilirubin 0.4 (0.2-1.3) mg/dL AST 33 (14-36) U/L ALT 42 H (6-35) U/L Alkaline Phosphatase 60 (38-126) U/L Total Protein 8.0 (6.3-8.2) g/dL Albumin 4.8 (3.5-5.1) g/dL Lipase 304 H (23-300) U/L Urine Color Yellow (Yellow) Urine Appearance Clear (Clear) Urine pH 6.5 (5.0-9.0) Ur Specific [place] 1.021 (1.001-1.035) Urine Protein Negative (Negative) mg/dL Urine Glucose (UA) Negative (Negative) mg/dL Urine Ketones Negative (Negative) mg/dL Ur Blood (Man) Negative (Negative) Urine Nitrate Negative (Negative) Urine Bilirubin Negative (Negative) Urine Urobilinogen 0.2 (<2.0) mg/dL Leukocyte Esterase Rfl Negative (Negative) LOURDES/UL POC Urine HCG, Qual Negative (Negative) Discharge Plan Discharge Clinical Impression: Abdominal pain, Acute cholecystitis Patient Disposition: Still a Patient Condition: Stable Instructions: Abdominal Pain (ED) Prescriptions: No Action diclofenac sodium 75 mg tablet,delayed release (DR/EC) 75 mg PO BID Adult 50 Plus Probiotic 4 billion cell capsule 1 mmu cells PO DAILY nortriptyline [Pamelor] 25 mg capsule 25 mg PO QHS Qty: 30 6RF Rx Instructions: may increase to 2 capsules at bedtime after 2 weeks if necessary Ubrelvy 50 mg tablet See Rx Instructions .ROUTE .COMPLEX Qty: 10 2RF Dose Instruction: TAKE 1 TABLET BY MOUTH ONCE A SINGLE DOSE MAY REPEAT ONCE IN >=2 HOURS AFTER FIRST DOSE IF NEEDED Rx Instructions: TAKE 1 TABLET BY MOUTH ONCE A SINGLE DOSE MAY REPEAT ONCE IN >=2 HOURS AFTER FIRST DOSE IF NEEDED Emgality Pen 120 mg/mL pen injector See Rx Instructions .ROUTE .COMPLEX Qty: 1 6RF Dose Instruction: INJECT 120 MG SUBCUTANEOUSLY MONTHLY Rx Instructions: INJECT 120 MG SUBCUTANEOUSLY MONTHLY buspirone 15 mg tablet 15 mg PO TID PRN (Reason: anxiety) sertraline 100 mg tablet 100 mg PO BID dexmethylphenidate 10 mg tablet 10 mg PO BID PRN (Reason: Anxiety) Rx Instructions: administer doses at least 4 hours apart One-A-Day Women's Complete 18 mg iron- 400 mcg Tablet 1 tablet PO DAILY Magnesium Complex 1 cap PO DAILY Vitamin D3 10,000 unit PO DAILY mecobalamin (vitamin B12) 2,000 mg PO DAILY montelukast 10 mg tablet See Rx Instructions .ROUTE .COMPLEX Qty: 90 1RF Dose Instruction: TAKE 1 TABLET BY MOUTH DAILY Rx Instructions: TAKE 1 TABLET BY MOUTH DAILY omeprazole 20 mg capsule,delayed release(DR/EC) 20 mg PO .daily Qty: 90 2RF Follow-up/Referrals: Angelica Salazar TRAIN DIRECTOR [Primary Care Provider] - Time of Disposition: 05:43
[2024-09-13] MEDS: PIPERACILLN/TAZ 3.375GM/NS50ML 3.375 GM/50 ML BAG IVPB ×3 (06:03→17:07)
[2024-09-13] MEDS: SODIUM CHLORIDE 0.9% IV 1,000 ML 125 ML IV CONT (06:43)
--- NOTE | 2024-09-13 08:43 | PC.NURSE ---
This patient, Mayra Membreno, was admitted to [address] [place] [address] Room 305-02 on 09/13/24 @ 0800. Patient/family oriented to hospital policies and general routines including ID bracelet, bed and alarms, visiting hours, pain management, procedures, bathroom and other care routines, personal items, smoking policy, room service/diet, and visiting hours. Information on how to activate the Rapid Response Team has been discussed. Patient/Family are encouraged to report perceived risks to care and to ask questions if they do not understand what they are told or what they should do.
--- NOTE | 2024-09-13 09:55 | P.HP_ITS ---
H&P: HPI History of Present Illness Date/Time: 09/13/24 09:55 Chief Complaint: Right-sided abdominal pain Narrative: This is a 44-year-old woman who presented to the ED with complaints of right- sided abdominal pain overnight. She reports eating Thanksgiving leftovers last night for dinner. She went to bed feeling well and woke up around 11:30 p.m. with an onset of right upper quadrant abdominal pain. Her pain intensified quickly and was unbearable at home, therefore she came into the ED for evaluation. Labs showed a white blood cell count of 8300, BUN 22, creatinine 1.1, LFTs normal other than mildly elevated ALT at 42. Lipase 304. UA negative. Urine negative. CT scan of the abdomen and pelvis with IV contrast shows a distended gallbladder with mild wall thickening and cholelithiasis. Appearance suggest superimposed acute cholecystitis. There is also mild dilation of the common bile duct and mild intrahepatic biliary dilatation. The patient was admitted and is now seen on the medical floor. She received morphine about 3 hours prior to my exam and is feeling better. She is not having any abdominal pain at the time of my exam, but still has right upper quadrant tenderness. Her only previous abdominal surgery was a delivery. She reports having an episode of epigastric pain radiating into her chest about a month ago that brought her in to [facility] ED. She received a GI cocktail and symptoms improved, therefore she was discharged with follow-up with PCP. At that time, she was told there was concerned that it was her gallbladder. No CT or ultrasound done in the ER. Review of Systems Review of Systems: All systems reviewed & are unremarkable except as noted in HPI and below PMFSH Past Medical History Medical History Abdominal pain Abnormal CT scan, stomach Anxiety Change in bowel habits Cholelithiasis Diverticulosis CAESAR (generalized anxiety disorder) GERD (gastroesophageal reflux disease) Hematochezia History of abnormal cervical Pap smear HSV-1 (herpes simplex virus 1) infection Migraine syndrome Migraines Obesity Recurrent sinusitis Surgical History Surgical History delivery delivered (~2012) H/O dilation and curettage (~2015) H/O LEEP [place] teeth removed Family History Family History Father Hypertension Diabetes mellitus Alcoholism Mother Breast cancer Lung cancer Grandparent Lung cancer Breast cancer Cerebrovascular accident Social History Social History Smoking packs per day: 0.5 Smoking cigarettes per day: 10.0 Years smoked: 15 Smoking pack-years: 7.50 Smoking status: Former smoker Additional smoking assessment comments: STARTED VAPING- 2017-08/2023 Alcohol intake: current Alcohol use details: DRINKS Substance use: never Do You Feel Safe in your Home?: Yes Lack of Transportation: No Lack of Food: Never True Current Housing: I Have Housing Concerned About Future Housing: No Difficulty Paying Gas/Electric Bills: No Difficulty Paying for Meds: No Currently Unemployed: No Education: High School Diploma/GED Difficulty w/ Childcare or Family Care: No Living arrangements: with family Gender identity (if verbalized by the patient): Female Spiritual care concerns: No Agree to blood products: Yes Meds Home Medications and Allergies Home Medications Medication Instructions Recorded Confirmed Type buspirone 15 mg tablet 15 mg PO TID PRN anxiety 09/12/19 09/13/24 History sertraline 100 mg tablet 100 mg PO BID 09/12/19 09/13/24 History dexmethylphenidate 10 mg tablet 10 mg PO BID PRN Anxiety 08/18/23 09/13/24 History lactobacillus combination no.9 4 1 mmu cells PO DAILY 11/29/23 09/13/24 History billion cell capsule (Adult 50 Plus Probiotic) Magnesium Complex 1 cap PO DAILY 03/15/24 09/13/24 History Vitamin D3 10,000 unit PO DAILY 03/15/24 09/13/24 History mecobalamin (vitamin B12) 2,000 mg PO DAILY 03/15/24 09/13/24 History pwiwvgwqfmdq-vzenlrsd-wqnq 1 tablet PO DAILY 03/15/24 09/13/24 History fumarate 18 mg-folic acid 400 mcg tablet (One-A-Day Women's Complete) omeprazole 20 mg capsule,delayed 20 mg PO .daily #90 caps 06/19/24 09/13/24 Rx release galcanezumab-gnlm 120 mg/mL See Rx Instructions .Route 06/28/24 09/13/24 Rx subcutaneous pen injector .COMPLEX #1 mL (Emgality Pen) nortriptyline 25 mg capsule 25 mg PO QHS #30 caps 06/28/24 09/13/24 Rx (Pamelor) ubrogepant 50 mg tablet (Ubrelvy) See Rx Instructions .Route 06/28/24 09/13/24 Rx .COMPLEX #10 tabs diclofenac sodium 75 mg 75 mg PO BID 08/12/24 09/13/24 History tablet,delayed release Viviscal 1 tab-cap PO BID 09/13/24 09/13/24 History cetirizine 10 mg tablet (Zyrtec) 10 mg PO DAILY 09/13/24 09/13/24 History famotidine 40 mg tablet 40 mg PO HS 09/13/24 09/13/24 History meclizine 25 mg tablet 25 mg PO TID PRN Dizziness 09/13/24 09/13/24 History montelukast 10 mg tablet 10 mg PO DAILY 09/13/24 09/13/24 History Allergies Allergy/AdvReac Type Severity Reaction Status Date / Time No Known Allergies Allergy Verified 09/13/24 06:20 Vital Signs Vital Signs - 24 hr 09/13/24 01:26 09/13/24 04:00 09/13/24 06:00 Temperature 97.7 F Pulse Rate 75 69 78 Respiratory Rate 20 14 16 Blood Pressure 165/99 H 109/66 114/70 Pulse Oximetry 100 99 97 Oxygen Delivery Room Air 09/13/24 07:40 09/13/24 08:24 Temperature 97.4 F L Pulse Rate 70 65 Respiratory Rate 14 16 Blood Pressure 121/69 121/66 Pulse Oximetry 100 97 Oxygen Delivery Exam Const: General: comfortable and no acute distress Nutritional Appearance: average body habitus Orientation/consciousness: patient oriented x3 HENMT: Head: normocephalic and atraumatic Ears: hearing grossly normal bilaterally Mouth: Yes moist mucous membranes Eyes: General: appearance normal, both eyes and all related structures Pupils: Equal, round and reactive pupils present Neck: Neck: normal visual inspection and full ROM Resp: Effort & Inspection: no respiratory distress Auscultation: clear to auscultation bilaterally Cardio: Rate: regular rate Rhythm: regular rhythm Heart sounds: S1 normal heart sound present and S2 normal heart sound present Peripheral pulses: Peripheral pulses 2+ throughout GI: Inspection: non-distended GI Palp: Yes Soft to palpation, Yes Tenderness to palpation present (GI) (mild RUQ tenderness), No Guarding due to palpation present (GI), Yes No hepatosplenomegaly present, No Hernia present and No Rebound tenderness present Percussion: Yes normal to percussion Auscultation: normal bowel sounds Skin: General skin exam: normal color Neuro: General: moves all extremities and no focal motor deficits Speech: normal speech Motor exam (neuro): 5/5 motor strength present throughout Extrem: General: normal to inspection and no edema Psych: Mental Status: mental status grossly normal Attitude: cooperative Insight: Good insight present (Psych) Judgement: Good judgement present (Psych) H&P: Results Labs Labs: Short CBC 09/13/24 Range/Units 01:33 WBC 8.3 (4.5-10.0) K/mm3 Hgb 12.7 (12.0-15.0) g/dL Hct 37.5 (37.0-47.0) % Plt Count 260 (150-375) k/mm3 BMP 09/13/24 01:33 Sodium 137 Potassium 3.8 Chloride 105 Carbon Dioxide 24 BUN 22 H Creatinine 1.10 H Glucose 86 Calcium 10.1 Liver Function 09/13/24 Range/Units 01:33 Total Bilirubin 0.4 (0.2-1.3) mg/dL AST 33 (14-36) U/L ALT 42 H (6-35) U/L Alkaline Phosphatase 60 (38-126) U/L Albumin 4.8 (3.5-5.1) g/dL Urine 09/13/24 Range/Units 01:40 Urine Color Yellow (Yellow) Urine Appearance Clear (Clear) Urine pH 6.5 (5.0-9.0) Ur Specific [place] 1.021 (1.001-1.035) Urine Protein Negative (Negative) mg/dL Urine Glucose (UA) Negative (Negative) mg/dL Imaging CT scan - abdomen: Radiologist's impression: ITS Impressions Abdomen/Pelvis CT 09/13/24 06:52 Impression: Distended gallbladder with mild wall thickening and cholelithiasis. Appearance suggests superimposed acute cholecystitis. Consider HIDA scan for further evaluation as indicated. Mild dilatation of the common bile duct and mild intrahepatic biliary dilatation. Consider MRCP to assess for common duct stone as indicated. No evidence for acute pancreatitis. Assessment and Plan Assessment and plan (1) Acute cholecystitis: Code(s): K81.0 - Acute cholecystitis Status: Acute Assessment and Plan: CT evidence of acute cholecystitis with cholelithiasis. She presented with less than 12 hours of RUQ abdominal pain. Her abdominal pain has improved some with analgesics. CT scan also showed dilation of the common bile duct with intrahepatic biliary dilatation. No CT evidence of choledocholithiasis and her total bilirubin is normal. Lipase was barely elevated at 304. I discussed treat ment options with the patient. We would recommend proceeding with a laparoscopic cholecystectomy with intraoperative cholangiogram which would be done by Dr. Blevins under general anesthesia. Description of the procedure, risks, benefits, expected outcomes, and expected recovery were discussed with the patient in detail. We discussed the risks of bile leak and bile duct injury, liver/bowel injury, bleeding, and infection. All questions were answered and she agrees to proceed with surgery. I will keep her NPO with IV fluids and analgesics as needed. She was started on IV Zosyn, which would provide coverage for preoperative antibiotics. Discussed with the patient that if there is concern of a common bile duct stone on cholangiogram, then she would remain in the hospital for GI consultation and possible ERCP. (2) Dilation of biliary tract: Code(s): K83.8 - Other specified diseases of biliary tract Status: Acute Assessment and Plan: See plan above. (3) Cholelithiasis: Code(s): K80.20 - Calculus of gallbladder without cholecystitis without obstruction Status: Acute Plan I have discussed the patient's case and plan of care with Dr. Blevins. Quality VTE Prophylaxis VTE prophylaxis: mechanical ordered If No VTE Prophylaxis Answer both mechanical and pharmacologic: Reason no pharmacologic proph: low risk/not indicated
--- NOTE | 2024-09-13 12:48 | PC.NURSE ---
Addendum entered by Dana Enriquez RN 09/13/24 12:51: IV is 20 L AC, not R AC. Original Note: To pre-op per [wheelchair ], IV [20 R AC]. Report given to [[place]].
--- NOTE | 2024-09-13 13:13 | WPDHPUPDATE1 ---
History and Physical Update Update Date/Time: 09/13/24 13:13 History and Physical has been reviewed, including an updated exam of the patient. There are NO changes in the patient's condition. Risks, benefits, and alternatives have been discussed and questions answered. Patient agrees to proceed with procedure.
[2024-09-13] MEDS: ACETAMINOPHEN 500 MG TABLET 1000 MG PO (13:45)
[2024-09-13] MEDS: KETOROLAC 15 MG/ML VIAL (*BKC) IV PUSH (13:45)
--- NOTE | 2024-09-13 14:08 | P.PNAN_ITS ---
Anes - Initial Pre Proc Eval Procedure: Operation Date: 09/13/24 13:45 Proposed Procedures p Laparoscopic Cholecystectomy with Intraoperative Cholangiogram, Possible Open - Jewel Blevins DO Date/Time: 09/13/24 14:08 Surgeon: Jewel Blevins DO Pre Op Diagnosis: Acute cholecystitis Patient Data Age: 44 Gender: F Height: 1.7 m Weight: 83 kg Last Vital Signs Temp 36.2 C L 09/13/24 13:27 Pulse 74 09/13/24 13:27 Resp 16 09/13/24 13:27 BP 109/57 L 09/13/24 13:27 Pulse Ox 100 09/13/24 13:27 O2 Del Method Room Air 09/13/24 13:27 Allergies Allergy/AdvReac Type Severity Reaction Status Date / Time No Known Allergies Allergy Verified 09/13/24 06:20 Home Medications Medication Instructions Recorded Confirmed Type buspirone 15 mg tablet 15 mg PO TID PRN anxiety 09/12/19 09/13/24 History sertraline 100 mg tablet 100 mg PO BID 09/12/19 09/13/24 History dexmethylphenidate 10 mg tablet 10 mg PO BID PRN Anxiety 08/18/23 09/13/24 History lactobacillus combination no.9 4 1 mmu cells PO DAILY 11/29/23 09/13/24 History billion cell capsule (Adult 50 Plus Probiotic) Magnesium Complex 1 cap PO DAILY 03/15/24 09/13/24 History Vitamin D3 10,000 unit PO DAILY 03/15/24 09/13/24 History mecobalamin (vitamin B12) 2,000 mg PO DAILY 03/15/24 09/13/24 History mjqzhmlyauwp-hvsxrebt-qbfj 1 tablet PO DAILY 03/15/24 09/13/24 History fumarate 18 mg-folic acid 400 mcg tablet (One-A-Day Women's Complete) omeprazole 20 mg capsule,delayed 20 mg PO .daily #90 caps 06/19/24 09/13/24 Rx release galcanezumab-gnlm 120 mg/mL See Rx Instructions .Route 06/28/24 09/13/24 Rx subcutaneous pen injector .COMPLEX #1 mL (Emgality Pen) nortriptyline 25 mg capsule 25 mg PO QHS #30 caps 06/28/24 09/13/24 Rx (Pamelor) ubrogepant 50 mg tablet (Ubrelvy) See Rx Instructions .Route 06/28/24 09/13/24 Rx .COMPLEX #10 tabs diclofenac sodium 75 mg 75 mg PO BID 08/12/24 09/13/24 History tablet,delayed release Viviscal 1 tab-cap PO BID 09/13/24 09/13/24 History cetirizine 10 mg tablet (Zyrtec) 10 mg PO DAILY 09/13/24 09/13/24 History famotidine 40 mg tablet 40 mg PO HS 09/13/24 09/13/24 History meclizine 25 mg tablet 25 mg PO TID PRN Dizziness 09/13/24 09/13/24 History montelukast 10 mg tablet 10 mg PO DAILY 09/13/24 09/13/24 History Laboratory Tests 09/13/24 09/13/24 09/13/24 01:33 01:40 01:48 WBC 8.3 K/mm3 (4.5-10.0) RBC 4.30 M/mm3 (4.2-5.4) Hgb 12.7 g/dL (12.0-15.0) Hct 37.5 % (37.0-47.0) MCV 87.2 fl (80-100) MCH 29.5 pg (26-34) MCHC 33.9 g/dl (32-36) RDW 13.2 % (11.5-14.5) Plt Count 260 k/mm3 (150-375) MPV 8.7 fl (7.4-10.4) Immature Gran % (Auto) 0.2 % (0-0.5) Neut % (Auto) 52.8 % (45.5-73.1) Lymph % (Auto) 33.7 % (18.3-44.2) Young % (Auto) 8.3 % (2.6-8.5) Eos % (Auto) 4.6 H % (0-4.4) Baso % (Auto) 0.4 % (0.2-1.2) Lymph # (Auto) 2.81 K/mm3 (0.9-3.2) Young # (Auto) 0.7 H K/mm3 (0.1-0.6) Eos # (Auto) 0.4 H K/mm3 (0-0.3) Baso # (Auto) 0.0 K/mm3 (0.0-0.1) Abs Immat Gran (auto) 0.02 K/mm3 (0.00-0.031) Absolute Neuts (auto) 4.4 K/mm3 (1.3-6.7) Absolute Nucleated RBC 0.000 K/mm3 (0.0-0.012) Nucleated RBC % 0.0 % (0.0-0.2) Sodium 137 mmol/L (137-145) Potassium 3.8 mmol/L (3.4-5.0) Chloride 105 mmol/L (98-107) Carbon Dioxide 24 mmol/L (22-30) Anion Gap 8 mmol/L (4-12) BUN 22 H mg/dL (7-17) Creatinine 1.10 H mg/dL (0.7-1.0) Estim Creat Clear Calc 64 ml/min Estimated GFR 54 L (59 - ) Glucose 86 mg/dL (65-110) Calcium 10.1 mg/dL (8.4-10.2) Total Bilirubin 0.4 mg/dL (0.2-1.3) AST 33 U/L (14-36) ALT 42 H U/L (6-35) Alkaline Phosphatase 60 U/L (38-126) Total Protein 8.0 g/dL (6.3-8.2) Albumin 4.8 g/dL (3.5-5.1) Lipase 304 H U/L (23-300) Urine Color Yellow (Yellow) Urine Appearance Clear (Clear) Urine pH 6.5 (5.0-9.0) Ur Specific [place] 1.021 (1.001-1.035) Urine Protein Negative mg/dL (Negative) Urine Glucose (UA) Negative mg/dL (Negative) Urine Ketones Negative mg/dL (Negative) Ur Blood (Man) Negative (Negative) Urine Nitrate Negative (Negative) Urine Bilirubin Negative (Negative) Urine Urobilinogen 0.2 mg/dL (<2.0) Leukocyte Esterase Rfl Negative [place]/UL (Negative) POC Urine HCG, Qual Negative (Negative) Blood Type Antibody Screen 09/13/24 10:48 WBC RBC Hgb Hct MCV MCH MCHC RDW Plt Count MPV Immature Gran % (Auto) Neut % (Auto) Lymph % (Auto) Young % (Auto) Eos % (Auto) Baso % (Auto) Lymph # (Auto) Young # (Auto) Eos # (Auto) Baso # (Auto) Abs Immat Gran (auto) Absolute Neuts (auto) Absolute Nucleated RBC Nucleated RBC % Sodium Potassium Chloride Carbon Dioxide Anion Gap BUN Creatinine Estim Creat Clear Calc Estimated GFR Glucose Calcium Total Bilirubin AST ALT Alkaline Phosphatase Total Protein Albumin Lipase Urine Color Urine Appearance Urine pH Ur Specific [place] Urine Protein Urine Glucose (UA) Urine Ketones Ur Blood (Man) Urine Nitrate Urine Bilirubin Urine Urobilinogen Leukocyte Esterase Rfl POC Urine HCG, Qual Blood Type A Positive Antibody Screen Negative Patient hx anesthesia problems: none Family hx anesthesia problems: none Results Review: All pre-operative results and documents have been reviewed as part of the pre- operative evaluation. [facility] Past Medical History Medical History Abdominal pain Abnormal CT scan, stomach Anxiety Change in bowel habits Cholelithiasis Diverticulosis CAESAR (generalized anxiety disorder) GERD (gastroesophageal reflux disease) Hematochezia History of abnormal cervical Pap smear HSV-1 (herpes simplex virus 1) infection Migraine syndrome Migraines Obesity Recurrent sinusitis Surgical History Surgical History delivery delivered (~2012) H/O dilation and curettage (~2015) H/O LEEP [place] teeth removed Family History Family History Father Hypertension Diabetes mellitus Alcoholism Mother Breast cancer Lung cancer Grandparent Lung cancer Breast cancer Cerebrovascular accident Social History Social History Smoking packs per day: 0.5 Smoking cigarettes per day: 10.0 Years smoked: 15 Smoking pack-years: 7.50 Smoking status: Former smoker Additional smoking assessment comments: STARTED VAPING- Alcohol intake: current Alcohol use details: DRINKS Substance use: never Do You Feel Safe in your Home?: Yes Lack of Transportation: No Lack of Food: Never True Current Housing: I Have Housing Concerned About Future Housing: No Difficulty Paying Gas/Electric Bills: No Difficulty Paying for Meds: No Currently Unemployed: No Education: High School Diploma/GED Difficulty w/ Childcare or Family Care: No Living arrangements: with family Gender identity (if verbalized by the patient): Female Spiritual care concerns: No Agree to blood products: Yes Anes - Eval Final PreProcedure Day of Procedure 09/13/24 14:08 Patient weight: overweight Heart: regular rate and rhythm Lungs: clear to auscultation Airway: Mallampati scale class II Neurological: alert and oriented Last oral intake: >/= 8 hours ASA classification: II Emergent: no Anesthetic plan: proceed Anesthesia type and monitoring: general ETT and standard monitoring Results Review: All pre-operative results and documents have been reviewed as part of the pre-operative evaluation. Informed Consent: The patient's anesthetic plan and its attendant risks and benefits were discussed with the patient/family/POA. Questions were solicited and answers provided to the satisfaction of the patient/family/POA.
[2024-09-13] MEDS: LACTATED RINGERS 1,000 ML 30 ML IV CONT ×2 (14:10→15:11)
[2024-09-13] MEDS: BUPIVACAINE/EPINEPHRINE 0.5% 50 ML VIAL 30 ML INFILTRATE ×2 (14:42→15:00)
--- NOTE | 2024-09-13 15:09 | W.PM.PROC2 ---
Procedure Note - Detailed Date of Procedure 09/13/24 Pre-op Diagnosis Acute cholecystitis, dilated common bile duct Post-op Diagnosis Other (Acute cholecystitis, distal common bile duct obstruction, hemorrhagic right ovarian cyst) Procedure Performed Laparoscopic cholecystectomy with cholangiogram Surgeon Jewel Blevins DO Anesthesia General and Local (0.5% bupivacaine) Indications This is a 44-year-old woman who presented to the emergency department overnight with right upper quadrant abdominal pain that started yesterday. She had had symptoms like this 1 other time but does not know what caused it. In the emergency department she was noted to have a slightly elevated ALT but remainder of liver enzymes were normal. CT showed evidence of acute cholecystitis and dilated common bile duct. She was then admitted for further treatment. Discussions were made with the patient about treatment options and decision was made to proceed with laparoscopic cholecystectomy with intraoperative cholangiogram. Findings Laparoscopic cholecystectomy with cholangiogram was performed. The gallbladder was hyperemic and edematous showing signs of acute cholecystitis. There appeared to be a possible obstruction within the cystic duct, but I was able to obtain a cholangiogram just beyond this area. The cholangiogram was obtained with Omnipaque contrast and there did appear to be a distal common bile duct obstruction. No contrast was seen entering into the duodenum after 2 separate cholangiograms. When inspecting the remainder of the abdomen, there did appear to be some bloody fluid within the pelvis and right pericolic gutter. The pelvic structures were inspected and she did appear to have a hemorrhagic right ovarian cyst. There did not appear to be any active bleeding. The gallbladder was removed and sent to the lab for pathology. Description of Procedure Procedure as well as risks, benefits, and alternatives were discussed with patient. Written consent was obtained and placed in chart prior to procedure. The patient was brought back to surgical suite. Patient was placed in supine position on operating table. Time-out was done to confirm patient and procedure. Patient was then intubated by the anesthesia department. Abdomen was prepped and draped in sterile fashion using chlorhexidine prep. 0.5% bupivacaine with epinephrine was infiltrated at each site of incision. A 5 millimeter incision was made near the umbilicus, and a 5 millimeter Optiview trocar was advanced through the abdominal layers under direct visualization. Once inside the abdominal cavity, carbon dioxide was insufflated to create a pneumoperitoneum. The camera was inserted and the abdomen was inspected. No immediate abnormalities were identified. The patient was placed in reverse Trendelenburg position and rotated slightly to the left. An 11 millimeter incision was made in the subxiphoid region, and an 11 millimeter trocar was inserted under direct visualization. Two 5 millimeter incisions were made in the right upper quadrant, and two 5 millimeter trocars were inserted under direct visualization. The gallbladder was identified and grasped at the fundus and retracted superiorly. It was then grasped at the infundibulum retracted laterally. Careful dissection around the neck of the gallbladder was performed using blunt dissection with a [place] grasper and hook electrocautery. The cystic duct was identified, and a window was created behind it. The cystic artery was also identified and a window was created behind it. The critical view of safety was identified, visualizing the cystic duct running directly into the neck of the gallbladder, and the cystic artery running directly into the wall of the gallbladder. A 5 millimeter clip automotive generator repairer was then used to place 2 clips proximally and 1 clip distally on the cystic artery. It was then transected using endoscopic scissors. The Moran clamp was then placed across the cystic duct and the Moran cholangiocatheter was then advanced into the cystic duct. Saline flushed with ease. The patient was then flattened out in bed and fluoroscopy was used to obtain a cholangiogram with Omnipaque contrast. The images were sent to Radiology for interpretation. The cholangiocatheter was removed. The patient was then placed back reverse Trendelenburg position. A 5 mm Endoclip automotive generator repairer was then used to place 2 clips proximally 1 clip distally on the cystic duct and then it was transected using endoscopic scissors. Once safely away from the mandy hepatitis, the gallbladder was dissected free from the liver bed using hook electrocautery. Hemostasis was achieved along the way. The gallbladder was removed completely and then removed through the subxiphoid port. The liver bed was then inspected. Hemostasis appeared adequate, and our clips appeared secure. The area was gently irrigated with sterile saline. No other abnormalities were seen. The patient was flattened out in bed, and 1 final inspection was made around the abdominal cavity. The subxiphoid port was removed, and a John Jesus cone was used to approximate the fascia with an 0-Vicryl simple interrupted suture. The remaining ports were then removed under direct visualization, the camera was removed, and the pneumoperitoneum was released. The skin of the incisions was approximated using 4-0 Monocryl subcuticular sutures. Exofin glue was applied on top. The patient was then awakened from anesthesia, extubated, and transferred to recovery. Estimated Blood Loss 10 Pathology Yes (Gallbladder) Complications No immediate complications Condition Stable Disposition Floor [facility] Billing Surgery - Charge Forward: Surgery Billing
--- NOTE | 2024-09-13 16:18 | PC.NURSE ---
Returned from OR per [stretcher]. Report received from [Aiyana].
[2024-09-13] MEDS: HYDROcodone/acetaminophen (*CRX) 5-325 MG TABLET 1 TAB PO (16:40)
--- NOTE | 2024-09-13 16:56 | P.CONGI_ITS ---
Assessment and Plan Assessment and plan (1) Choledocholithiasis: Code(s): K80.50 - Calculus of bile duct without cholangitis or cholecystitis without obstruction Status: Acute Assessment and Plan: There is documentation of a retained common bile duct stone. I had a long conversation with the patient and her and explained to them the need for an ERCP, providing them with detailed technical an anatomic details, including the risks and benefits of the procedure. We will plan for the next 48 hours. GI Consult Note Consult date/time: 09/13/24 16:56 HPI: Mayra Mmebreno is a 44 year old female Who underwent a laparoscopic cholecystectomy this morning. An intraoperative cholangiogram showed retention of contrast after several minutes, and there is a suspicion of a distal common bile duct stone. The patient is currently not complaining of abdominal pain or fever. Review of Systems Review of Systems: All systems reviewed & are unremarkable except as noted in HPI and below PMFSH Past Medical History Medical History Abdominal pain Abnormal CT scan, stomach Anxiety Change in bowel habits Cholelithiasis Diverticulosis CAESAR (generalized anxiety disorder) GERD (gastroesophageal reflux disease) Hematochezia History of abnormal cervical Pap smear HSV-1 (herpes simplex virus 1) infection Migraine syndrome Migraines Obesity Recurrent sinusitis Surgical History Surgical History delivery delivered (~2012) H/O dilation and curettage (~2015) H/O LEEP Independence teeth removed Family History Family History Father Hypertension Diabetes mellitus Alcoholism Mother Breast cancer Lung cancer Grandparent Lung cancer Breast cancer Cerebrovascular accident Social History Social History Smoking packs per day: 0.5 Smoking cigarettes per day: 10.0 Years smoked: 15 Smoking pack-years: 7.50 Smoking status: Former smoker Additional smoking assessment comments: STARTED VAPING- Alcohol intake: current Alcohol use details: DRINKS Substance use: never Do You Feel Safe in your Home?: Yes Lack of Transportation: No Lack of Food: Never True Current Housing: I Have Housing Concerned About Future Housing: No Difficulty Paying Gas/Electric Bills: No Difficulty Paying for Meds: No Currently Unemployed: No Education: High School Diploma/GED Difficulty w/ Childcare or Family Care: No Living arrangements: with family Gender identity (if verbalized by the patient): Female Spiritual care concerns: No Agree to blood products: Yes Meds Home Medications and Allergies Home Medications Medication Instructions Recorded Confirmed Type buspirone 15 mg tablet 15 mg PO TID PRN anxiety 09/12/19 09/13/24 History sertraline 100 mg tablet 100 mg PO BID 09/12/19 09/13/24 History dexmethylphenidate 10 mg tablet 10 mg PO BID PRN Anxiety 08/18/23 09/13/24 History lactobacillus combination no.9 4 1 mmu cells PO DAILY 11/29/23 09/13/24 History billion cell capsule (Adult 50 Plus Probiotic) Magnesium Complex 1 cap PO DAILY 03/15/24 09/13/24 History Vitamin D3 10,000 unit PO DAILY 03/15/24 09/13/24 History mecobalamin (vitamin B12) 2,000 mg PO DAILY 03/15/24 09/13/24 History ioerokyoqrkm-zetrkvqf-emmq 1 tablet PO DAILY 03/15/24 09/13/24 History fumarate 18 mg-folic acid 400 mcg tablet (One-A-Day Women's Complete) omeprazole 20 mg capsule,delayed 20 mg PO .daily #90 caps 06/19/24 09/13/24 Rx release galcanezumab-gnlm 120 mg/mL See Rx Instructions .Route 06/28/24 09/13/24 Rx subcutaneous pen injector .COMPLEX #1 mL (Emgality Pen) nortriptyline 25 mg capsule 25 mg PO QHS #30 caps 06/28/24 09/13/24 Rx (Pamelor) ubrogepant 50 mg tablet (Ubrelvy) See Rx Instructions .Route 06/28/24 09/13/24 Rx .COMPLEX #10 tabs diclofenac sodium 75 mg 75 mg PO BID 08/12/24 09/13/24 History tablet,delayed release Viviscal 1 tab-cap PO BID 09/13/24 09/13/24 History cetirizine 10 mg tablet (Zyrtec) 10 mg PO DAILY 09/13/24 09/13/24 History famotidine 40 mg tablet 40 mg PO HS 09/13/24 09/13/24 History meclizine 25 mg tablet 25 mg PO TID PRN Dizziness 09/13/24 09/13/24 History montelukast 10 mg tablet 10 mg PO DAILY 09/13/24 09/13/24 History Allergies Allergy/AdvReac Type Severity Reaction Status Date / Time No Known Allergies Allergy Verified 09/13/24 06:20 Vital Signs Vital Signs - 24 hr 09/13/24 01:26 09/13/24 04:00 09/13/24 06:00 Temperature 97.7 F Pulse Rate 75 69 78 Respiratory Rate 20 14 16 Blood Pressure 165/99 H 109/66 114/70 Pulse Oximetry 100 99 97 Oxygen Delivery Room Air Oxygen Flow Rate 09/13/24 07:40 09/13/24 08:24 09/13/24 08:00 Temperature 97.4 F L Pulse Rate 70 65 Respiratory Rate 14 16 Blood Pressure 121/69 121/66 Pulse Oximetry 100 97 Oxygen Delivery Room Air Oxygen Flow Rate 09/13/24 13:27 09/13/24 13:27 09/13/24 15:11 Temperature 97.2 F L 97.2 F L 97.5 F L Pulse Rate 74 74 85 Respiratory Rate 16 16 16 Blood Pressure 109/57 L 109/57 L 108/60 Pulse Oximetry 100 100 100 Oxygen Delivery Room Air Room Air Simple Face Mask Oxygen Flow Rate 8 09/13/24 15:20 09/13/24 15:30 09/13/24 15:38 Temperature Pulse Rate 82 70 Respiratory Rate 16 16 Blood Pressure 130/79 116/71 Pulse Oximetry 100 100 100 Oxygen Delivery Simple Face Mask Simple Face Mask Room Air Oxygen Flow Rate 8 8 09/13/24 15:45 09/13/24 16:00 Temperature Pulse Rate 70 66 Respiratory Rate 16 16 Blood Pressure 119/74 119/73 Pulse Oximetry 100 100 Oxygen Delivery Room Air Room Air Oxygen Flow Rate Exam Const: General: cooperative and healthy appearing Resp: Effort & Inspection: normal respiratory effort and able to speak in complete sentences Auscultation: clear to auscultation bilaterally Cardio: Rate: regular rate Rhythm: regular rhythm GI: Inspection: normal to inspection GI Palp: No No hepatosplenomegaly present Auscultation: normal bowel sounds Rectal Exam: deferred Skin: General skin exam: normal color Psych: Appearance: grossly normal Mental Status: mental status grossly normal Results Labs 09/13/24 01:33 09/13/24 01:33 Labs: Short CBC 09/13/24 Range/Units 01:33 WBC 8.3 (4.5-10.0) K/mm3 Hgb 12.7 (12.0-15.0) g/dL Hct 37.5 (37.0-47.0) % Plt Count 260 (150-375) k/mm3 BMP 09/13/24 01:33 Sodium 137 Potassium 3.8 Chloride 105 Carbon Dioxide 24 BUN 22 H Creatinine 1.10 H Glucose 86 Calcium 10.1 Liver Function 09/13/24 Range/Units 01:33 Total Bilirubin 0.4 (0.2-1.3) mg/dL AST 33 (14-36) U/L ALT 42 H (6-35) U/L Alkaline Phosphatase 60 (38-126) U/L Albumin 4.8 (3.5-5.1) g/dL Urine 09/13/24 Range/Units 01:40 Urine Color Yellow (Yellow) Urine Appearance Clear (Clear) Urine pH 6.5 (5.0-9.0) Ur Specific Collins 1.021 (1.001-1.035) Urine Protein Negative (Negative) mg/dL Urine Glucose (UA) Negative (Negative) mg/dL
[2024-09-13] MEDS: DICLOFENAC SOD 75 MG TABLET.EC PO (17:07)
[2024-09-13] MEDS: SERTRALINE HCL 50 MG TABLET 100 MG PO (17:07)
[2024-09-13] MEDS: LACTATED RINGERS 1,000 ML 100 ML IV CONT (17:40)
[2024-09-13] MEDS: NORTRIPTYLINE HCL 25 MG CAPSULE PO (19:43)
[2024-09-13] MEDS: FAMOTIDINE 20 MG TABLET 40 MG PO (19:43)
[2024-09-13] MEDS: MORPHINE SULFATE (*CRX) 2 MG/ML INJ IV PUSH (19:44)
[2024-09-14] MEDS: PIPERACILLN/TAZ 3.375GM/NS50ML 3.375 GM/50 ML BAG IVPB ×4 (00:19→17:53)
[2024-09-14 04:00] VITALS: BP 121/64; PULSE 77; RESP 16; TEMP 36.1; O2SAT 98
[2024-09-14] MEDS: LACTATED RINGERS 1,000 ML 100 ML IV CONT (04:56)
[2024-09-14] MEDS: HYDROcodone/acetaminophen (*CRX) 7.5-325 MG TABLET 1 TAB PO ×4 (06:37→20:48)
[2024-09-14 07:27] LABS: Hematocrit 32.7 % (37.0-47.0); Hemoglobin 10.5 g/dL (12.0-15.0); Mean Corpuscular HGB Conc 32.1 g/dl (32-36); Mean Corpuscular Hemoglobin 28.8 pg (26-34); Mean Corpuscular Volume 89.8 fl (80-100); Mean Platelet Volume 9.1 fl (7.4-10.4); Platelet Count Result 180 k/mm3 (150-375); Red Blood Count 3.64 M/mm3 (4.2-5.4); Red Cell Distribution Width 13.2 % (11.5-14.5); White Blood Count 6.2 K/mm3 (4.5-10.0)
[2024-09-14 08:02] LABS: Albumin Level 3.5 g/dL (3.5-5.1); Alkaline Phosphatase 132 U/L (38-126); Anion Gap 5 mmol/L (4-12); Aspartate Amino Transferase 598 U/L (14-36); Bilirubin,Total 2.6 mg/dL (0.2-1.3); Blood Urea Nitrogen 10 mg/dL (7-17); Calcium 8.5 mg/dL (8.4-10.2); Carbon Dioxide 25 mmol/L (22-30); Chloride 106 mmol/L (98-107); Estimated CRCL calculation 98 ml/min; Estimated Glomerular Filt Rate > 60; Glucose 104 mg/dL (65-110); Lipase 102 U/L (23-300); Potassium 3.9 mmol/L (3.4-5.0); Sodium 136 mmol/L (137-145)
[2024-09-14 08:44] LABS: Alanine Aminotransferase 900 U/L (6-35)
[2024-09-14] MEDS: SERTRALINE HCL 50 MG TABLET 100 MG PO ×2 (09:08→16:52)
[2024-09-14] MEDS: PANTOPRAZOLE 40 MG TABLET PO (09:08)
[2024-09-14] MEDS: MONTELUKAST SODIUM 10 MG TABLET PO (09:08)
[2024-09-14] MEDS: DICLOFENAC SOD 75 MG TABLET.EC PO ×2 (09:08→16:52)
[2024-09-14] MEDS: LORATADINE 10 MG TABLET PO (09:08)
[2024-09-14] MEDS: MORPHINE SULFATE (*CRX) 2 MG/ML INJ IV PUSH (09:26)
[2024-09-14 09:51] VITALS: BP 118/63; PULSE 73; RESP 18; TEMP 36.3; O2SAT 100
--- NOTE | 2024-09-14 10:01 | P.PNGS_ITS ---
Progress Note: A&P Assessment and Plan (1) Acute cholecystitis: Code(s): K81.0 - Acute cholecystitis Status: Acute Assessment and Plan: * POD1 laparoscopic cholecystectomy with IOC. IOC showed worsening biliary duct dilatation and distal common bile duct stone or stricture. * GI consulted and ERCP scheduled for tomorrow. * Advance to a low fat diet as tolerated. NPO after midnight for ERCP. (2) Dilation of biliary tract: Code(s): K83.8 - Other specified diseases of biliary tract Status: Acute Assessment and Plan: * Total bilirubin went up to 2.6 today. IOC showed possible common duct stone or stricture. ERCP tomorrow. Plan I have discussed the patient's case and plan of care with Dr. Blevins. Subjective Subjective Date/Time Seen: 09/14/24 10:01 Post Op day: 1 (Laparoscopic cholecystectomy with IOC) Patient reports: no new complaints and afebrile Interval history: Patient is doing well this morning with clear liquids. No nausea or vomiting. She has some incisional soreness with movement, but this is well controlled. No acute events overnight. IOC positive for possible common duct stone or stricture. Exam Const: General: comfortable and no acute distress GI: Inspection: non-distended and incision (incisions dry and intact) GI Palp: Yes Soft to palpation, Yes Tenderness to palpation present (GI) (incisional) and No Guarding due to palpation present (GI) Auscultation: normal bowel sounds Objective Data Vital Signs Vital Signs: Vital Signs - 24 hr 09/13/24 13:27 09/13/24 13:27 09/13/24 15:11 Temperature 97.2 F L 97.2 F L 97.5 F L Pulse Rate 74 74 85 Respiratory Rate 16 16 16 Blood Pressure 109/57 L 109/57 L 108/60 Pulse Oximetry 100 100 100 Oxygen Delivery Room Air Room Air Simple Face Mask Oxygen Flow Rate 8 09/13/24 15:20 09/13/24 15:30 09/13/24 15:38 Temperature Pulse Rate 82 70 Respiratory Rate 16 16 Blood Pressure 130/79 116/71 Pulse Oximetry 100 100 100 Oxygen Delivery Simple Face Mask Simple Face Mask Room Air Oxygen Flow Rate 8 8 09/13/24 15:45 09/13/24 16:00 09/13/24 16:25 Temperature 97.8 F Pulse Rate 70 66 58 L Respiratory Rate 16 16 16 Blood Pressure 119/74 119/73 101/68 Pulse Oximetry 100 100 100 Oxygen Delivery Room Air Room Air Oxygen Flow Rate 09/13/24 16:40 09/13/24 17:10 09/13/24 17:10 Temperature 97.6 F 97.5 F L 97.8 F Pulse Rate 58 L 59 L 74 Respiratory Rate 16 16 18 Blood Pressure 126/69 133/75 128/65 Pulse Oximetry 100 99 98 Oxygen Delivery Oxygen Flow Rate 09/13/24 21:23 09/13/24 23:59 09/14/24 04:00 Temperature 97.7 F 97.0 F L 97.0 F L Pulse Rate 62 72 77 Respiratory Rate 16 16 16 Blood Pressure 139/71 134/66 121/64 Pulse Oximetry 100 97 98 Oxygen Delivery Oxygen Flow Rate 09/14/24 09:51 Temperature 97.4 F L Pulse Rate 73 Respiratory Rate 18 Blood Pressure 118/63 Pulse Oximetry 100 Oxygen Delivery Oxygen Flow Rate Intake/Output Intake/Output: Intake & Output 09/11/24 09/12/24 09/13/24 09/14/24 23:59 23:59 23:59 23:59 Intake Total 2233.9 1050 Balance 2233.9 1050 Meds/Results Medications: Active Medications Generic Name Dose Route Start Last Admin Trade Name Freq PRN Reason Stop Dose Admin Acetaminophen 500 mg 09/13/24 16:11 Acetaminophen 500 Mg Tablet PO Q6H PRN Pain Rated 1-3 Hydrocodone Bitart/Acetaminophen 1 tab 09/13/24 16:11 09/13/24 16:40 Hydrocodone/Acetaminophen (*Crx) 5-325 Mg Tablet PO 1 tab Q4H PRN Administration Pain Rated 4-6 Hydrocodone Bitart/Acetaminophen 1 tab 09/13/24 16:11 09/14/24 06:37 Hydrocodone/Acetaminophen (*Crx) 7.5-325 Mg Tablet PO 1 tab Q4H PRN Administration Pain Rated 7-10 Buspirone HCl 15 mg 09/13/24 16:11 Buspirone Hcl 5 Mg Tablet PO TID PRN anxiety Diclofenac Sodium 75 mg 09/13/24 17:00 09/14/24 09:08 Diclofenac Sod 75 Mg Tablet.Ec PO 75 mg BID JERONIMO Administration Diphenhydramine HCl 25 mg 09/13/24 16:11 Diphenhydramine Hcl Inj 50 Mg/Ml Vial IV PUSH Q6H PRN Itching Famotidine 40 mg 09/13/24 21:00 09/13/24 19:43 Famotidine 20 Mg Tablet PO 40 mg HS JERONIMO Administration Piperacillin/Tazobactam/Dextrose 3.375 gm in 50 mls @ 100 mls/hr 09/13/24 12:00 09/14/24 04:56 Zosyn 3.375 Gm/Ns 50 Ml IVPB 100 mls/hr Q6HR JERONIMO Administration Lactated Ringer's 1,000 mls @ 100 mls/hr 09/13/24 16:11 09/14/24 04:56 Lr - Lactated Ringers Iv IV CONT 100 mls/hr .Q10H JERONIMO Administration Loratadine 10 mg 09/14/24 09:00 09/14/24 09:08 Loratadine 10 Mg Tablet PO 10 mg QAM JERONIMO Administration Montelukast Sodium 10 mg 09/14/24 09:00 09/14/24 09:08 Montelukast Sodium 10 Mg Tablet PO 10 mg DAILY JERONIMO Administration Morphine Sulfate 2 mg 09/13/24 16:11 09/14/24 09:26 Morphine Sulfate (*Crx) 2 Mg/Ml Inj IV PUSH 2 mg Q2H PRN Administration Breakthrough Pain Rated 4-6 or NPO Morphine Sulfate 4 mg 09/13/24 16:11 Morphine Sulfate (*Crx) 4 Mg/Ml Inj IV PUSH Q2H PRN Breakthrough Pain Rated 7-10 or NPO Naloxone HCl 0.1 mg 09/13/24 16:11 Naloxone Hcl 0.4 Mg/Ml Vial IV PUSH Q2M PRN Opiate Reversal Nortriptyline HCl 25 mg 09/13/24 21:00 09/13/24 19:43 Nortriptyline Hcl 25 Mg Capsule PO 25 mg QHS JERONIMO Administration Ondansetron HCl 4 mg 09/13/24 05:43 Ondansetron Inj 4 Mg/2 Ml Vial IV PUSH Q4H PRN Nausea Pantoprazole Sodium 40 mg 09/14/24 09:00 09/14/24 09:08 Pantoprazole 40 Mg Tablet PO 40 mg QAM JERONIMO Administration Sertraline HCl 100 mg 09/13/24 17:00 09/14/24 09:08 Sertraline Hcl 50 Mg Tablet PO 100 mg BID JERONIMO Administration Radiology Results: ITS Impressions Abdomen/Pelvis CT 09/13/24 06:52 Impression: Distended gallbladder with mild wall thickening and cholelithiasis. Appearance suggests superimposed acute cholecystitis. Consider HIDA scan for further evaluation as indicated. Mild dilatation of the common bile duct and mild intrahepatic biliary dilatation. Consider MRCP to assess for common duct stone as indicated. No evidence for acute pancreatitis. Cholangiogram,Operative 09/13/24 15:49 IMPRESSION: 1. Worsened intrahepatic and extrahepatic biliary duct dilatation with stone versus stricture in the distal common bile duct. Labs Labs: Laboratory Results - last 24 hr 09/13/24 09/14/24 10:48 06:32 WBC 6.2 RBC 3.64 L Hgb 10.5 L Hct 32.7 L MCV 89.8 MCH 28.8 MCHC 32.1 RDW 13.2 Plt Count 180 MPV 9.1 Sodium 136 L Potassium 3.9 Chloride 106 Carbon Dioxide 25 Anion Gap 5 BUN 10 D Creatinine 0.70 Estim Creat Clear Calc 98 Estimated GFR > 60 Glucose 104 Calcium 8.5 Total Bilirubin 2.6 H AST 598 H ALT 900 H Alkaline Phosphatase 132 H Total Protein 6.0 L Albumin 3.5 Lipase 102 Blood Type A Positive Antibody Screen Negative
[2024-09-14] MEDS: MORPHINE SULFATE (*CRX) 4 MG/ML INJ IV PUSH (11:43)
--- NOTE | 2024-09-14 13:50 | WPDANESPN ---
Anes - Prog Note Post-Op Date/Time: 09/14/24 13:50 Cardiovascular status: normal Respiratory status: normal Airway patency: baseline Mental status: baseline Post-Op hydration status: normal Vital Signs: Last Vital Signs Temp 36.3 C L 09/14/24 09:51 Pulse 73 09/14/24 09:51 Resp 18 09/14/24 09:51 BP 118/63 09/14/24 09:51 Pulse Ox 100 09/14/24 09:51 O2 Del Method Room Air 09/13/24 16:00 O2 Flow Rate 8 09/13/24 15:30 Pain Score (VAS): 0 I/O: Intake & Output 09/13/24 09/14/24 09/14/24 23:59 07:59 15:59 Intake Total 386 1100 510 Balance 386 1100 510 Laboratory Tests 09/14/24 06:32 09/14/24 06:32 09/14/24 06:32 WBC 6.2 RBC 3.64 L Hgb 10.5 L Hct 32.7 L MCV 89.8 MCH 28.8 MCHC 32.1 RDW 13.2 Plt Count 180 MPV 9.1 Sodium 136 L Potassium 3.9 Chloride 106 Carbon Dioxide 25 Anion Gap 5 BUN 10 D Creatinine 0.70 Estim Creat Clear Calc 98 Estimated GFR > 60 Glucose 104 Calcium 8.5 Total Bilirubin 2.6 H AST 598 H ALT 900 H Alkaline Phosphatase 132 H Total Protein 6.0 L Albumin 3.5 Lipase 102 Post-procedural complaints: none Patient Feedback: Patient satisfied with anesthetic care.
[2024-09-14 14:00] VITALS: BP 134/69; PULSE 89; RESP 18; TEMP 36.3; O2SAT 97
--- NOTE | 2024-09-14 14:42 | P.PNGI_ITS ---
Progress Note: A&P Assessment and Plan (1) Choledocholithiasis: Code(s): K80.50 - Calculus of bile duct without cholangitis or cholecystitis without obstruction Status: Acute Assessment and Plan: Patient with no new complaints. Will do ERCP tomorrow around 1 pm. Orders placed for indomethacin suppository 100 mg 1 hour prior. Subjective Date/time seen: 09/14/24 14:42 Objective Data Vital Signs Vital Signs: Vital Signs - 24 hr 09/13/24 15:11 09/13/24 15:20 09/13/24 15:30 Temperature 97.5 F L Pulse Rate 85 82 70 Respiratory Rate 16 16 16 Blood Pressure 108/60 130/79 116/71 Pulse Oximetry 100 100 100 Oxygen Delivery Simple Face Mask Simple Face Mask Simple Face Mask Oxygen Flow Rate 8 8 8 09/13/24 15:38 09/13/24 15:45 09/13/24 16:00 Temperature Pulse Rate 70 66 Respiratory Rate 16 16 Blood Pressure 119/74 119/73 Pulse Oximetry 100 100 100 Oxygen Delivery Room Air Room Air Room Air Oxygen Flow Rate 09/13/24 16:25 09/13/24 16:40 09/13/24 17:10 Temperature 97.8 F 97.6 F 97.5 F L Pulse Rate 58 L 58 L 59 L Respiratory Rate 16 16 16 Blood Pressure 101/68 126/69 133/75 Pulse Oximetry 100 100 99 Oxygen Delivery Oxygen Flow Rate 09/13/24 17:10 09/13/24 21:23 09/13/24 23:59 Temperature 97.8 F 97.7 F 97.0 F L Pulse Rate 74 62 72 Respiratory Rate 18 16 16 Blood Pressure 128/65 139/71 134/66 Pulse Oximetry 98 100 97 Oxygen Delivery Oxygen Flow Rate 09/14/24 04:00 09/14/24 09:51 09/14/24 14:00 Temperature 97.0 F L 97.4 F L 97.4 F L Pulse Rate 77 73 89 Respiratory Rate 16 18 18 Blood Pressure 121/64 118/63 134/69 Pulse Oximetry 98 100 97 Oxygen Delivery Oxygen Flow Rate Intake/Output Intake/Output: Intake & Output 09/11/24 09/12/24 09/13/24 09/14/24 23:59 23:59 23:59 23:59 Intake Total 2233.9 1610 Balance 2233.9 1610 Meds/Results Medications: Active Medications Generic Name Dose Route Start Last Admin Trade Name Freq PRN Reason Stop Dose Admin Acetaminophen 500 mg 09/13/24 16:11 Acetaminophen 500 Mg Tablet PO Q6H PRN Pain Rated 1-3 Hydrocodone Bitart/Acetaminophen 1 tab 09/13/24 16:11 09/13/24 16:40 Hydrocodone/Acetaminophen (*Crx) 5-325 Mg Tablet PO 1 tab Q4H PRN Administration Pain Rated 4-6 Hydrocodone Bitart/Acetaminophen 1 tab 09/13/24 16:11 09/14/24 10:50 Hydrocodone/Acetaminophen (*Crx) 7.5-325 Mg Tablet PO 1 tab Q4H PRN Administration Pain Rated 7-10 Buspirone HCl 15 mg 09/13/24 16:11 Buspirone Hcl 5 Mg Tablet PO TID PRN anxiety Diclofenac Sodium 75 mg 09/13/24 17:00 09/14/24 09:08 Diclofenac Sod 75 Mg Tablet.Ec PO 75 mg BID JERONIMO Administration Diphenhydramine HCl 25 mg 09/13/24 16:11 Diphenhydramine Hcl Inj 50 Mg/Ml Vial IV PUSH Q6H PRN Itching Famotidine 40 mg 09/13/24 21:00 09/13/24 19:43 Famotidine 20 Mg Tablet PO 40 mg HS JERONIMO Administration Piperacillin/Tazobactam/Dextrose 3.375 gm in 50 mls @ 100 mls/hr 09/13/24 12:00 09/14/24 12:13 Zosyn 3.375 Gm/Ns 50 Ml IVPB Infused Q6HR JERONIMO Infusion Lactated Ringer's 1,000 mls @ 100 mls/hr 09/13/24 16:11 09/14/24 04:56 Lr - Lactated Ringers Iv IV CONT 100 mls/hr .Q10H JERONIMO Administration Loratadine 10 mg 09/14/24 09:00 09/14/24 09:08 Loratadine 10 Mg Tablet PO 10 mg QAM JERONIMO Administration Montelukast Sodium 10 mg 09/14/24 09:00 09/14/24 09:08 Montelukast Sodium 10 Mg Tablet PO 10 mg DAILY JERONIMO Administration Morphine Sulfate 2 mg 09/13/24 16:11 09/14/24 09:26 Morphine Sulfate (*Crx) 2 Mg/Ml Inj IV PUSH 2 mg Q2H PRN Administration Breakthrough Pain Rated 4-6 or NPO Morphine Sulfate 4 mg 09/13/24 16:11 09/14/24 11:43 Morphine Sulfate (*Crx) 4 Mg/Ml Inj IV PUSH 4 mg Q2H PRN Administration Breakthrough Pain Rated 7-10 or NPO Naloxone HCl 0.1 mg 09/13/24 16:11 Naloxone Hcl 0.4 Mg/Ml Vial IV PUSH Q2M PRN Opiate Reversal Nortriptyline HCl 25 mg 09/13/24 21:00 09/13/24 19:43 Nortriptyline Hcl 25 Mg Capsule PO 25 mg QHS JERONIMO Administration Ondansetron HCl 4 mg 09/13/24 05:43 Ondansetron Inj 4 Mg/2 Ml Vial IV PUSH Q4H PRN Nausea Pantoprazole Sodium 40 mg 09/14/24 09:00 09/14/24 09:08 Pantoprazole 40 Mg Tablet PO 40 mg QAM JERONIMO Administration Sertraline HCl 100 mg 09/13/24 17:00 09/14/24 09:08 Sertraline Hcl 50 Mg Tablet PO 100 mg BID JERONIMO Administration Radiology Results: ITS Impressions Abdomen/Pelvis CT 09/13/24 06:52 Impression: Distended gallbladder with mild wall thickening and cholelithiasis. Appearance suggests superimposed acute cholecystitis. Consider HIDA scan for further evaluation as indicated. Mild dilatation of the common bile duct and mild intrahepatic biliary di latation. Consider MRCP to assess for common duct stone as indicated. No evidence for acute pancreatitis. Cholangiogram,Operative 09/13/24 15:49 IMPRESSION: 1. Worsened intrahepatic and extrahepatic biliary duct dilatation with stone versus stricture in the distal common bile duct. Labs Labs: Laboratory Results - last 24 hr 09/14/24 06:32 WBC 6.2 RBC 3.64 L Hgb 10.5 L Hct 32.7 L MCV 89.8 MCH 28.8 MCHC 32.1 RDW 13.2 Plt Count 180 MPV 9.1 Sodium 136 L Potassium 3.9 Chloride 106 Carbon Dioxide 25 Anion Gap 5 BUN 10 D Creatinine 0.70 Estim Creat Clear Calc 98 Estimated GFR > 60 Glucose 104 Calcium 8.5 Total Bilirubin 2.6 H AST 598 H ALT 900 H Alkaline Phosphatase 132 H Total Protein 6.0 L Albumin 3.5 Lipase 102
[2024-09-14] MEDS: FAMOTIDINE 20 MG TABLET 40 MG PO (20:48)
[2024-09-14] MEDS: NORTRIPTYLINE HCL 25 MG CAPSULE PO (20:48)
[2024-09-14 22:00] VITALS: BP 125/62; PULSE 67; RESP 16; TEMP 36; O2SAT 98
[2024-09-15] VITALS (11 sets, daily range): BP systolic 110–138; BP diastolic 59–80; PULSE 67–83; RESP 12–18; TEMP 36–37.3; O2SAT 98–100
[2024-09-15] MEDS: PIPERACILLN/TAZ 3.375GM/NS50ML 3.375 GM/50 ML BAG IVPB ×5 (00:28→23:21)
[2024-09-15] MEDS: LACTATED RINGERS 1,000 ML 100 ML IV CONT ×2 (01:21→11:24)
[2024-09-15] MEDS: HYDROcodone/acetaminophen (*CRX) 7.5-325 MG TABLET 1 TAB PO ×2 (04:25→21:41)
[2024-09-15] MEDS: MORPHINE SULFATE (*CRX) 4 MG/ML INJ IV PUSH ×2 (05:15→11:23)
[2024-09-15 06:07] LABS: Hematocrit 30.7 % (37.0-47.0); Hemoglobin 9.9 g/dL (12.0-15.0); Mean Corpuscular HGB Conc 32.2 g/dl (32-36); Mean Platelet Volume 8.9 fl (7.4-10.4); Platelet Count Result 153 k/mm3 (150-375); Red Blood Count 3.41 M/mm3 (4.2-5.4); Red Cell Distribution Width 13.4 % (11.5-14.5); White Blood Count 5.3 K/mm3 (4.5-10.0)
[2024-09-15 06:25] LABS: Alanine Aminotransferase 573 U/L (6-35); Albumin Level 3.5 g/dL (3.5-5.1); Alkaline Phosphatase 111 U/L (38-126); Anion Gap 2 mmol/L (4-12); Aspartate Amino Transferase 206 U/L (14-36); Bilirubin,Total 1.1 mg/dL (0.2-1.3); Blood Urea Nitrogen 9 mg/dL (7-17); Calcium 8.5 mg/dL (8.4-10.2); Carbon Dioxide 27 mmol/L (22-30); Chloride 107 mmol/L (98-107); Estimated CRCL calculation 98 ml/min; Estimated Glomerular Filt Rate > 60; Glucose 86 mg/dL (65-110); Potassium 3.6 mmol/L (3.4-5.0); Sodium 136 mmol/L (137-145)
[2024-09-15] MEDS: SERTRALINE HCL 50 MG TABLET 100 MG PO ×2 (08:37→17:24)
[2024-09-15] MEDS: MORPHINE SULFATE (*CRX) 2 MG/ML INJ IV PUSH ×2 (08:40→23:20)
--- NOTE | 2024-09-15 12:43 | P.PNAN_ITS ---
Anes - Initial Pre Proc Eval Procedure: Operation Date: 09/13/24 13:45 Proposed Procedures p Laparoscopic Cholecystectomy with Intraoperative Cholangiogram, Possible Open - Jewel Blevins DO Operation Date: 09/15/24 13:30 Proposed Procedures p Endoscopic Retro Cholangiopancreatogram - Anish Méndez MD Date/Time: 09/15/24 12:43 Surgeon: Jewel Blevins DO Pre Op Diagnosis: Acute cholecystitis Patient Data Age: 44 Gender: F Height: 1.7 m Weight: 83 kg Last Vital Signs Temp 96.8 F L 09/15/24 05:53 Pulse 69 09/15/24 05:53 Resp 16 09/15/24 05:53 BP 123/62 09/15/24 05:53 Pulse Ox 98 09/15/24 05:53 O2 Del Method Room Air 09/15/24 08:00 O2 Flow Rate 8 09/13/24 15:30 Allergies Allergy/AdvReac Type Severity Reaction Status Date / Time No Known Allergies Allergy Verified 09/15/24 12:40 Home Medications Medication Instructions Recorded Confirmed Type buspirone 15 mg tablet 15 mg PO TID PRN anxiety 09/12/19 09/13/24 History sertraline 100 mg tablet 100 mg PO BID 09/12/19 09/13/24 History dexmethylphenidate 10 mg tablet 10 mg PO BID PRN Anxiety 08/18/23 09/13/24 History lactobacillus combination no.9 4 1 mmu cells PO DAILY 11/29/23 09/13/24 History billion cell capsule (Adult 50 Plus Probiotic) Magnesium Complex 1 cap PO DAILY 03/15/24 09/13/24 History Vitamin D3 10,000 unit PO DAILY 03/15/24 09/13/24 History mecobalamin (vitamin B12) 2,000 mg PO DAILY 03/15/24 09/13/24 History akeofemjculs-xfvholgc-ypvy 1 tablet PO DAILY 03/15/24 09/13/24 History fumarate 18 mg-folic acid 400 mcg tablet (One-A-Day Women's Complete) omeprazole 20 mg capsule,delayed 20 mg PO .daily #90 caps 06/19/24 09/13/24 Rx release galcanezumab-gnlm 120 mg/mL See Rx Instructions .Route 06/28/24 09/13/24 Rx subcutaneous pen injector .COMPLEX #1 mL (Emgality Pen) nortriptyline 25 mg capsule 25 mg PO QHS #30 caps 06/28/24 09/13/24 Rx (Pamelor) ubrogepant 50 mg tablet (Ubrelvy) See Rx Instructions .Route 06/28/24 09/13/24 Rx .COMPLEX #10 tabs diclofenac sodium 75 mg 75 mg PO BID 08/12/24 09/13/24 History tablet,delayed release Viviscal 1 tab-cap PO BID 09/13/24 09/13/24 History cetirizine 10 mg tablet (Zyrtec) 10 mg PO DAILY 09/13/24 09/13/24 History famotidine 40 mg tablet 40 mg PO HS 09/13/24 09/13/24 History meclizine 25 mg tablet 25 mg PO TID PRN Dizziness 09/13/24 09/13/24 History montelukast 10 mg tablet 10 mg PO DAILY 09/13/24 09/13/24 History Laboratory Tests 09/15/24 05:37 WBC 5.3 K/mm3 (4.5-10.0) RBC 3.41 L M/mm3 (4.2-5.4) Hgb 9.9 L g/dL (12.0-15.0) Hct 30.7 L % (37.0-47.0) MCV 90.0 fl (80-100) MCH 29.0 pg (26-34) MCHC 32.2 g/dl (32-36) RDW 13.4 % (11.5-14.5) Plt Count 153 k/mm3 (150-375) MPV 8.9 fl (7.4-10.4) Sodium 136 L mmol/L (137-145) Potassium 3.6 mmol/L (3.4-5.0) Chloride 107 mmol/L (98-107) Carbon Dioxide 27 mmol/L (22-30) Anion Gap 2 L mmol/L (4-12) BUN 9 mg/dL (7-17) Creatinine 0.70 mg/dL (0.7-1.0) Estim Creat Clear Calc 98 ml/min Estimated GFR > 60 (59 - ) Glucose 86 mg/dL (65-110) Calcium 8.5 mg/dL (8.4-10.2) Total Bilirubin 1.1 mg/dL (0.2-1.3) AST 206 H U/L (14-36) ALT 573 H U/L (6-35) Alkaline Phosphatase 111 U/L (38-126) Total Protein 6.0 L g/dL (6.3-8.2) Albumin 3.5 g/dL (3.5-5.1) Patient hx anesthesia problems: none Family hx anesthesia problems: none Results Review: All pre-operative results and documents have been reviewed as part of the pre- operative evaluation. FORMERLY [facility] Past Medical History Medical History Abdominal pain Abnormal CT scan, stomach Anxiety Change in bowel habits Cholelithiasis Diverticulosis CAESAR (generalized anxiety disorder) GERD (gastroesophageal reflux disease) Hematochezia History of abnormal cervical Pap smear HSV-1 (herpes simplex virus 1) infection Migraine syndrome Migraines Obesity Recurrent sinusitis Surgical History Surgical History delivery delivered (~2012) H/O dilation and curettage (~2015) H/O LEEP [place] teeth removed Family History Family History Father Hypertension Diabetes mellitus Alcoholism Mother Breast cancer Lung cancer Grandparent Lung cancer Breast cancer Cerebrovascular accident Social History Social History Smoking packs per day: 0.5 Smoking cigarettes per day: 10.0 Years smoked: 15 Smoking pack-years: 7.50 Smoking status: Former smoker Additional smoking assessment comments: STARTED VAPING- Alcohol intake: current Alcohol use details: DRINKS Substance use: never Do You Feel Safe in your Home?: Yes Lack of Transportation: No Lack of Food: Never True Current Housing: I Have Housing Concerned About Future Housing: No Difficulty Paying Gas/Electric Bills: No Difficulty Paying for Meds: No Currently Unemployed: No Education: High School Diploma/GED Difficulty w/ Childcare or Family Care: No Living arrangements: with family Gender identity (if verbalized by the patient): Female Spiritual care concerns: No Agree to blood products: Yes Anes - Eval Final PreProcedure Day of Procedure 09/15/24 12:43 Patient weight: overweight Heart: regular rate and rhythm Lungs: clear to auscultation Airway: Mallampati scale class II Neurological: alert and oriented Last oral intake: >/= 8 hours ASA classification: II Emergent: no Anesthetic plan: proceed Anesthesia type and monitoring: general ETT and standard monitoring Results Review: All pre-operative results and documents have been reviewed as part of the pre- operative evaluation. Pt s/p lap farzana 2 days ago, now for ERCP. No interval change in history. Informed Consent: The patient's anesthetic plan and its attendant risks and benefits were discussed with the patient/family/POA. Questions were solicited and answers provided to the satisfaction of the patient/family/POA.
[2024-09-15] MEDS: INDOMETHACIN 50 MG SUPP.RECT 100 MG RECTAL (12:45)
[2024-09-15] MEDS: LACTATED RINGERS 1,000 ML 150 ML IV CONT (12:48)
--- NOTE | 2024-09-15 14:24 | P.PNGS_ITS ---
Progress Note: A&P Assessment and Plan (1) Acute cholecystitis: Code(s): K81.0 - Acute cholecystitis Status: Acute Assessment and Plan: * Doing well surgically. Will await results of ERCP. Possibly home tomorrow if recovering well from the ERCP. (2) Choledocholithiasis: Code(s): K80.50 - Calculus of bile duct without cholangitis or cholecystitis without obstruction Status: Acute Subjective Subjective Date/Time Seen: 09/15/24 14:24 Interval history: Still having a little abdominal pain but mostly at the subxiphoid incision. Tolerated diet yesterday. Awaiting ERCP today. Exam GI: Inspection: incision (intact with glue) GI Palp: Yes Soft to palpation and Yes Tenderness to palpation present (GI) (incisional) Auscultation: normal bowel sounds Objective Data Vital Signs Vital Signs: Vital Signs - 24 hr 09/14/24 22:00 09/15/24 05:53 09/15/24 08:00 Temperature 96.8 F L 96.8 F L Pulse Rate 67 69 Respiratory Rate 16 16 Blood Pressure 125/62 123/62 Pulse Oximetry 98 98 Oxygen Delivery Room Air 09/15/24 12:51 Temperature 98.5 F Pulse Rate 70 Respiratory Rate 18 Blood Pressure 129/66 Pulse Oximetry 100 Oxygen Delivery Room Air Intake/Output Intake/Output: Intake & Output 09/12/24 09/13/24 09/14/24 09/15/24 23:59 23:59 23:59 23:59 Intake Total 2233.9 2940 1100 Balance 2233.9 2940 1100 Meds/Results Medications: Active Medications Generic Name Dose Route Start Last Admin Trade Name Freq PRN Reason Stop Dose Admin Acetaminophen 500 mg 09/13/24 16:11 Acetaminophen 500 Mg Tablet PO Q6H PRN Pain Rated 1-3 Hydrocodone Bitart/Acetaminophen 1 tab 09/13/24 16:11 09/13/24 16:40 Hydrocodone/Acetaminophen (*Crx) 5-325 Mg Tablet PO 1 tab Q4H PRN Administration Pain Rated 4-6 Hydrocodone Bitart/Acetaminophen 1 tab 09/13/24 16:11 09/15/24 04:25 Hydrocodone/Acetaminophen (*Crx) 7.5-325 Mg Tablet PO 1 tab Q4H PRN Administration Pain Rated 7-10 Buspirone HCl 15 mg 09/13/24 16:11 Buspirone Hcl 5 Mg Tablet PO TID PRN anxiety Diclofenac Sodium 75 mg 09/13/24 17:00 09/14/24 16:52 Diclofenac Sod 75 Mg Tablet.Ec PO 75 mg BID JERONIMO Administration Diphenhydramine HCl 25 mg 09/13/24 16:11 Diphenhydramine Hcl Inj 50 Mg/Ml Vial IV PUSH Q6H PRN Itching Famotidine 40 mg 09/13/24 21:00 09/14/24 20:48 Famotidine 20 Mg Tablet PO 40 mg HS JERONIMO Administration Piperacillin/Tazobactam/Dextrose 3.375 gm in 50 mls @ 100 mls/hr 09/13/24 12:00 09/15/24 11:23 Zosyn 3.375 Gm/Ns 50 Ml IVPB 100 mls/hr Q6HR JERONIMO Administration Lactated Ringer's 1,000 mls @ 100 mls/hr 09/13/24 16:11 09/15/24 11:24 Lr - Lactated Ringers Iv IV CONT 100 mls/hr .Q10H JERONIMO Administration Lactated Ringer's 1,000 mls @ 150 mls/hr 09/14/24 15:55 09/15/24 12:48 Lr - Lactated Ringers Iv IV CONT 150 mls/hr .Q6H40M JERONIMO Administration Loratadine 10 mg 09/14/24 09:00 09/14/24 09:08 Loratadine 10 Mg Tablet PO 10 mg QAM JERONIMO Administration Montelukast Sodium 10 mg 09/14/24 09:00 09/14/24 09:08 Montelukast Sodium 10 Mg Tablet PO 10 mg DAILY JERONIMO Administration Morphine Sulfate 2 mg 09/13/24 16:11 09/15/24 08:40 Morphine Sulfate (*Crx) 2 Mg/Ml Inj IV PUSH 2 mg Q2H PRN Administration Breakthrough Pain Rated 4-6 or NPO Morphine Sulfate 4 mg 09/13/24 16:11 09/15/24 11:23 Morphine Sulfate (*Crx) 4 Mg/Ml Inj IV PUSH 4 mg Q2H PRN Administration Breakthrough Pain Rated 7-10 or NPO Naloxone HCl 0.1 mg 09/13/24 16:11 Naloxone Hcl 0.4 Mg/Ml Vial IV PUSH Q2M PRN Opiate Reversal Nortriptyline HCl 25 mg 09/13/24 21:00 09/14/24 20:48 Nortriptyline Hcl 25 Mg Capsule PO 25 mg QHS JERONIMO Administration Ondansetron HCl 4 mg 09/13/24 05:43 Ondansetron Inj 4 Mg/2 Ml Vial IV PUSH Q4H PRN Nausea Pantoprazole Sodium 40 mg 09/14/24 09:00 09/14/24 09:08 Pantoprazole 40 Mg Tablet PO 40 mg QAM JERONIMO Administration Sertraline HCl 100 mg 09/13/24 17:00 09/15/24 08:37 Sertraline Hcl 50 Mg Tablet PO 100 mg BID JERONIMO Administration Radiology Results: ITS Impressions Abdomen/Pelvis CT 09/13/24 06:52 Impression: Distended gallbladder with mild wall thickening and cholelithiasis. Appearance suggests superimposed acute cholecystitis. Consider HIDA scan for further evalua tion as indicated. Mild dilatation of the common bile duct and mild intrahepatic biliary dilatation. Consider MRCP to assess for common duct stone as indicated. No evidence for acute pancreatitis. Cholangiogram,Operative 09/13/24 15:49 IMPRESSION: 1. Worsened intrahepatic and extrahepatic biliary duct dilatation with stone versus stricture in the distal common bile duct. Labs Labs: Laboratory Results - last 24 hr 09/15/24 05:37 WBC 5.3 RBC 3.41 L Hgb 9.9 L Hct 30.7 L MCV 90.0 MCH 29.0 MCHC 32.2 RDW 13.4 Plt Count 153 MPV 8.9 Sodium 136 L Potassium 3.6 Chloride 107 Carbon Dioxide 27 Anion Gap 2 L BUN 9 Creatinine 0.70 Estim Creat Clear Calc 98 Estimated GFR > 60 Glucose 86 Calcium 8.5 Total Bilirubin 1.1 AST 206 H ALT 573 H Alkaline Phosphatase 111 Total Protein 6.0 L Albumin 3.5
--- NOTE | 2024-09-15 15:08 | SUR.PHASEII ---
Patient stated they were nauseous. Dr. Kerns was contacted but unable to speak at the moment about pt, will inform floor RN of patient's complaint.
[2024-09-15] MEDS: ONDANSETRON INJ 4 MG/2 ML VIAL IV PUSH (15:31)
--- NOTE | 2024-09-15 15:31 | PC.NURSE ---
pt returned from ERCP c/o nausea, medication administered
[2024-09-15] MEDS: LORATADINE 10 MG TABLET PO (17:25)
[2024-09-15] MEDS: PANTOPRAZOLE 40 MG TABLET PO (17:25)
[2024-09-15] MEDS: MONTELUKAST SODIUM 10 MG TABLET PO (17:25)
[2024-09-15] MEDS: DICLOFENAC SOD 75 MG TABLET.EC PO (17:25)
[2024-09-15] MEDS: FAMOTIDINE 20 MG TABLET 40 MG PO (20:15)
[2024-09-15] MEDS: NORTRIPTYLINE HCL 25 MG CAPSULE PO (20:15)
[2024-09-16 05:00] VITALS: BP 135/81; PULSE 80; RESP 16; TEMP 36.7; O2SAT 98
[2024-09-16] MEDS: PIPERACILLN/TAZ 3.375GM/NS50ML 3.375 GM/50 ML BAG IVPB (05:46)
[2024-09-16] MEDS: HYDROcodone/acetaminophen (*CRX) 5-325 MG TABLET 1 TAB PO (06:39)
[2024-09-16] MEDS: LACTATED RINGERS 1,000 ML 100 ML IV CONT (06:53)
[2024-09-16 07:07] LABS: Hematocrit 30.6 % (37.0-47.0); Hemoglobin 10.1 g/dL (12.0-15.0); Mean Corpuscular Hemoglobin 29.5 pg (26-34); Mean Corpuscular Volume 89.5 fl (80-100); Mean Platelet Volume 8.8 fl (7.4-10.4); Platelet Count Result 179 k/mm3 (150-375); Red Blood Count 3.42 M/mm3 (4.2-5.4); Red Cell Distribution Width 12.9 % (11.5-14.5)
[2024-09-16 07:24] LABS: Alanine Aminotransferase 400 U/L (6-35); Albumin Level 3.6 g/dL (3.5-5.1); Alkaline Phosphatase 153 U/L (38-126); Anion Gap 3 mmol/L (4-12); Aspartate Amino Transferase 100 U/L (14-36); Bilirubin,Total 1.2 mg/dL (0.2-1.3); Blood Urea Nitrogen 7 mg/dL (7-17); Calcium 8.7 mg/dL (8.4-10.2); Carbon Dioxide 27 mmol/L (22-30); Chloride 106 mmol/L (98-107); Estimated CRCL calculation 87 ml/min; Estimated Glomerular Filt Rate > 60; Glucose 93 mg/dL (65-110); Potassium 3.8 mmol/L (3.4-5.0); Sodium 136 mmol/L (137-145)
[2024-09-16] MEDS: DICLOFENAC SOD 75 MG TABLET.EC PO (08:44)
[2024-09-16] MEDS: MONTELUKAST SODIUM 10 MG TABLET PO (08:44)
[2024-09-16] MEDS: PANTOPRAZOLE 40 MG TABLET PO (08:44)
[2024-09-16] MEDS: SERTRALINE HCL 50 MG TABLET 100 MG PO (08:44)
[2024-09-16] MEDS: LORATADINE 10 MG TABLET PO (08:44)
--- NOTE | 2024-09-16 09:56 | P.DS_ITS ---
DS: Admitting Diagnosis Discharge Date 09/16/2024 Admitting Diagnosis acute cholecystitis, choledocholithiasis DS: Discharge Diagnosis Discharge Diagnosis (1) Acute cholecystitis: Code(s): K81.0 - Acute cholecystitis Status: Acute Assessment and Plan: status post laparoscopic cholecystectomy, continue routine postoperative care, home with p.o. analgesia, follow-up with Dr. Lundberg in 2 weeks (2) Choledocholithiasis: Code(s): K80.50 - Calculus of bile duct without cholangitis or cholecystitis without obstruction Status: Acute Assessment and Plan: status post ERCP with sphincterotomy DS: Summary Hospital Course Reason for hospitalization: acute cholecystitis, choledocholithiasis Hospital Course: The patient is a 44-year-old female presenting to the emergency department comp [facility] of severe upper abdominal pain, bloating. Workup, including imaging, is significant for acute cholecystitis, possible choledocholithiasis. Given these findings, the patient was admitted to the surgical service. Upon evaluation, decision for urgent cholecystectomy with intraoperative cholangiogram was decided. The patient was taken to the operating room on 09/13 and laparoscopic cholecystectomy with interoperative cholangiogram was performed. Please see full operative report for details of that procedure. It was noted during the cholangiogram that the patient had possible distal common bile duct obstruction. Given these findings, GI was consulted for ERCP. The patient was taken for ERCP on 09/15 and sphincterotomy was performed with removal of some debris. The patient has done well after these procedures and is tolerating a low-fat diet without issue. She is up and moving without difficulty and her pain is well controlled with p.o. analgesia. The patient will be discharged at this time with p.o. analgesia and instructions for routine postoperative care. She will follow up in 2 weeks. Status at Discharge Functional status at discharge: independent ambulation Overall status at discharge: patient is progressing back to baseline Time Spent with Patient Time attestation: Total time spent providing and/or coordinating discharge services: Time spent: Less than 30 minutes Exam Const: General: cooperative, comfortable and no acute distress Resp: Auscultation: clear to auscultation bilaterally Cardio: Rate: regular rate Rhythm: regular rhythm GI: Inspection: normal to inspection, non-distended and incision GI Palp: Yes abdominal tenderness and Yes Soft to palpation DS: Data Data Completed and Pending Completed studies during hospitalization: Pending at discharge 09/13/24 14:38 Surgical [PTH] Routine Labs on day of discharge: Labs from last 24 hours 09/16/24 06:56 WBC 5.0 RBC 3.42 L Hgb 10.1 L Hct 30.6 L MCV 89.5 MCH 29.5 MCHC 33.0 RDW 12.9 Plt Count 179 MPV 8.8 Sodium 136 L Potassium 3.8 Chloride 106 Carbon Dioxide 27 Anion Gap 3 L BUN 7 Creatinine 0.80 Estim Creat Clear Calc 87 Estimated GFR > 60 Glucose 93 Calcium 8.7 Total Bilirubin 1.2 AST 100 H ALT 400 H Alkaline Phosphatase 153 H Total Protein 6.0 L Albumin 3.6 Discharge Plan Discharge Attending physician on discharge: Jewel Lundberg Consulting providers: Anish Méndez Discharging Clinician: Isabella Escobar Anticipated Discharge Date/Time: 09/16/24 11:51 Patient Disposition: Home, Self-Care Activity: other - see discharge instructions Diet: low fat Wound Care Instructions: other - see discharge instructions Discharge Instructions: DISCHARGE INSTRUCTION SHEET FOR HERNIA, GALLBLADDER AND APPENDIX SURGERIES DR. LUNDBERG PATIENT TO TAKE HOME 1. May shower, no soaking in bath x 2weeks. 2. Call office for: * Wound increasingly painful or bleeding * Vomiting * Fever of greater than 101 degrees 3. If no bowel movement for three days, take 1 oz. (30 ml) Milk of Magnesia or MiraLax 17g 1 to 2 times daily. 4. No heavy lifting > 10-15 pounds x weeks for hernia repairs and 2 weeks for laparoscopic cholecystectomy or appendectomy. 5. No driving for 3 days or while taking narcotic pain medications. 6. Ice to surgical site for 48 hours (30 min on, then 30 min off). 7. Up walking 10-30 minutes three times per day. 8. Resume previous home medications. 9. Follow-up 10-14 days in office for wound check or as previously scheduled. ([id number]) 10. Oral pain medications prescription to be sent to pharmacy. Take Tylenol 500mg every 6 hours and Ibuprofen 600mg every 6 hours for the first 2 days, then as needed. 11. NUTRITION: Start out by drinking fluids and increase your diet as tolerated. If you experience nausea, try dry toast, crackers, and 7-UP. If nausea or vomiting persists, contact your surgeon?s office. 12. Gallbladders-Low Fat Diet for 2 weeks (send care note of low fat diet) 13. Inguinal Hernias-wear scrotal support for 48 hours 14. Abdominal Hernias-if sent home with abdominal binder, wear for the first 2 weeks (may remove to shower or at night to sleep). Revised February 2019 Patient Instructions: Antibiotic Form, Low Fat Diet (DC), Pain Management (DC), Laparoscopic Cholecystectomy (DC) Stand Alone Forms: General Discharge Information Follow-up/Referrals: Jewel Lundberg DO [Physician] - 2 Weeks Discharge Medications: New hydrocodone-acetaminophen 5-325 mg tablet 1 tablet PO Q6H PRN (Reason: pain) Qty: 20 0RF Continued diclofenac sodium 75 mg tablet,delayed release (DR/EC) 75 mg PO BID Adult 50 Plus Probiotic 4 billion cell capsule 1 mmu cells PO DAILY nortriptyline [Pamelor] 25 mg capsule 25 mg PO QHS Qty: 30 6RF Rx Instructions: may increase to 2 capsules at bedtime after 2 weeks if necessary Ubrelvy 50 mg tablet See Rx Instructions .ROUTE .COMPLEX Qty: 10 2RF Dose Instruction: TAKE 1 TABLET BY MOUTH ONCE A SINGLE DOSE MAY REPEAT ONCE IN >=2 HOURS AFTER FIRST DOSE IF NEEDED Rx Instructions: TAKE 1 TABLET BY MOUTH ONCE A SINGLE DOSE MAY REPEAT ONCE IN >=2 HOURS AFTER FIRST DOSE IF NEEDED Emgality Pen 120 mg/mL pen injector See Rx Instructions .ROUTE .COMPLEX Qty: 1 6RF Dose Instruction: INJECT 120 MG SUBCUTANEOUSLY MONTHLY Rx Instructions: INJECT 120 MG SUBCUTANEOUSLY MONTHLY buspirone 15 mg tablet 15 mg PO TID PRN (Reason: anxiety) sertraline 100 mg tablet 100 mg PO BID dexmethylphenidate 10 mg tablet 10 mg PO BID PRN (Reason: Anxiety) Rx Instructions: administer doses at least 4 hours apart cetirizine [Zyrtec] 10 mg Tablet 10 mg PO DAILY famotidine 40 mg Tablet 40 mg PO HS Viviscal 1 tab-cap PO BID montelukast 10 mg tablet 10 mg PO DAILY meclizine 25 mg Tablet 25 mg PO TID PRN (Reason: Dizziness) Patient Comments: patient states she has not needed to take this for quite some time, but has it just in case she becomes dizzy One-A-Day Women's Complete 18 mg iron- 400 mcg Tablet 1 tablet PO DAILY Magnesium Complex 1 cap PO DAILY Vitamin D3 10,000 unit PO DAILY mecobalamin (vitamin B12) 2,000 mg PO DAILY omeprazole 20 mg capsule,delayed release(DR/EC) 20 mg PO .daily Qty: 90 2RF Date of admission: 09/14/24 10:25 Primary Care Provider: Angelica Salazar Admitting Provider: Jewel Lundberg Attending physician on admission: Jewel Lundberg Condition: Stable
--- NOTE | 2024-09-16 13:12 | WPDGIPROGNO ---
Progress Note: A&P Assessment and Plan (1) Acute cholecystitis: Code(s): K81.0 - Acute cholecystitis Status: Acute Assessment and Plan: s/p surgery, recovering (2) Abdominal pain: Code(s): R10.9 - Unspecified abdominal pain Status: Acute (3) Dilation of biliary tract: Code(s): K83.8 - Other specified diseases of biliary tract Status: Acute Assessment and Plan: treated with ercp and sphincterotomy no complications she is going home today (4) Choledocholithiasis: Code(s): K80.50 - Calculus of bile duct without cholangitis or cholecystitis without obstruction Status: Acute Assessment and Plan: abnormal IOC but no stone during ercp, duct was clear (5) Elevated liver enzymes: Code(s): R74.8 - Abnormal levels of other serum enzymes Status: Acute Plan expect to keep coming down repeat labs as outpatient Subjective Date/time seen: 09/16/24 13:12 Interval history: ercp yesterday with sphincterotomy and normal bile duct, did not find stone (probably already passed) she is improving, only pain from recent surgery and tolerating diet going home today Review of Systems Review of Systems: All systems reviewed & are unremarkable except as noted in HPI and below Exam Const: General: cooperative, comfortable and no acute distress HENMT: Face/Nose/Sinus: Normal nares present Eyes: Sclera: sclerae normal Neck: Neck: supple Resp: Effort & Inspection: normal respiratory effort Auscultation: clear to auscultation bilaterally Cardio: Rate: regular rate Rhythm: regular rhythm GI: Inspection: normal to inspection, non-distended and incision GI Palp: Yes abdominal tenderness and Yes Soft to palpation Skin: General skin exam: normal color Neuro: Speech: normal speech Motor exam (neuro): 5/5 motor strength present throughout Extrem: General: normal to inspection Psych: Mental Status: mental status grossly normal Objective Data Vital Signs Vital Signs: Vital Signs - 24 hr 09/15/24 14:18 09/15/24 14:28 09/15/24 14:38 Temperature 97.9 F Pulse Rate 67 83 77 Respiratory Rate 14 18 14 Blood Pressure 114/63 132/74 132/74 Pulse Oximetry 99 99 98 Oxygen Delivery Nasal Cannula Room Air Room Air Oxygen Flow Rate 2 09/15/24 14:48 09/15/24 14:58 09/15/24 15:08 Temperature 97.8 F Pulse Rate 74 77 71 Respiratory Rate 14 12 18 Blood Pressure 138/80 126/75 110/59 L Pulse Oximetry 98 99 99 Oxygen Delivery Room Air Room Air Room Air Oxygen Flow Rate 09/15/24 16:00 09/15/24 20:00 09/15/24 21:05 Temperature 97.0 F L 99.1 F Pulse Rate 71 71 80 Respiratory Rate 18 18 18 Blood Pressure 135/66 126/71 Pulse Oximetry 100 100 99 Oxygen Delivery Room Air Oxygen Flow Rate 09/16/24 05:00 09/16/24 08:00 Temperature 98.1 F Pulse Rate 80 Respiratory Rate 16 Blood Pressure 135/81 Pulse Oximetry 98 Oxygen Delivery Room Air Oxygen Flow Rate Intake/Output Intake/Output: Intake & Output 09/13/24 09/14/24 09/15/24 09/16/24 23:59 23:59 23:59 23:59 Intake Total 2233.9 2940 3300 1975 Balance 2233.9 2940 3300 1975 Meds/Results Medications: Active Medications Generic Name Dose Route Start Last Admin Trade Name Freq PRN Reason Stop Dose Admin Acetaminophen 500 mg 09/13/24 16:11 Acetaminophen 500 Mg Tablet PO Q6H PRN Pain Rated 1-3 Hydrocodone Bitart/Acetaminophen 1 tab 09/13/24 16:11 09/16/24 06:39 Hydrocodone/Acetaminophen (*Crx) 5-325 Mg Tablet PO 1 tab Q4H PRN Administration Pain Rated 4-6 Hydrocodone Bitart/Acetaminophen 1 tab 09/13/24 16:11 09/15/24 21:41 Hydrocodone/Acetaminophen (*Crx) 7.5-325 Mg Tablet PO 1 tab Q4H PRN Administration Pain Rated 7-10 Buspirone HCl 15 mg 09/13/24 16:11 Buspirone Hcl 5 Mg Tablet PO TID PRN anxiety Diclofenac Sodium 75 mg 09/13/24 17:00 09/16/24 08:44 Diclofenac Sod 75 Mg Tablet.Ec PO 75 mg BID JERONIMO Administration Diphenhydramine HCl 25 mg 09/13/24 16:11 Diphenhydramine Hcl Inj 50 Mg/Ml Vial IV PUSH Q6H PRN Itching Famotidine 40 mg 09/13/24 21:00 09/15/24 20:15 Famotidine 20 Mg Tablet PO 40 mg HS JERONIMO Administration Piperacillin/Tazobactam/Dextrose 3.375 gm in 50 mls @ 100 mls/hr 09/13/24 12:00 09/16/24 07:00 Zosyn 3.375 Gm/Ns 50 Ml IVPB Infused Q6HR JERONIMO Infusion Lactated Ringer's 1,000 mls @ 100 mls/hr 09/13/24 16:11 09/16/24 11:48 Lr - Lactated Ringers Iv IV CONT Not Given .Q10H JERONIMO Loratadine 10 mg 09/14/24 09:00 09/16/24 08:44 Loratadine 10 Mg Tablet PO 10 mg QAM JERONIMO Administration Montelukast Sodium 10 mg 09/14/24 09:00 09/16/24 08:44 Montelukast Sodium 10 Mg Tablet PO 10 mg DAILY JERONIMO Administration Morphine Sulfate 2 mg 09/13/24 16:11 09/15/24 23:20 Morphine Sulfate (*Crx) 2 Mg/Ml Inj IV PUSH 2 mg Q2H PRN Administration Breakthrough Pain Rated 4-6 or NPO Morphine Sulfate 4 mg 09/13/24 16:11 09/15/24 11:23 Morphine Sulfate (*Crx) 4 Mg/Ml Inj IV PUSH 4 mg Q2H PRN Administration Breakthrough Pain Rated 7-10 or NPO Naloxone HCl 0.1 mg 09/13/24 16:11 Naloxone Hcl 0.4 Mg/Ml Vial IV PUSH Q2M PRN Opiate Reversal Nortriptyline HCl 25 mg 09/13/24 21:00 09/15/24 20:15 Nortriptyline Hcl 25 Mg Capsule PO 25 mg QHS JERONIMO Administration Ondansetron HCl 4 mg 09/13/24 05:43 09/15/24 15:31 Ondansetron Inj 4 Mg/2 Ml Vial IV PUSH 4 mg Q4H PRN Administration Nausea Pantoprazole Sodium 40 mg 09/14/24 09:00 09/16/24 08:44 Pantoprazole 40 Mg Tablet PO 40 mg QAM JERONIMO Administration Sertraline HCl 100 mg 09/13/24 17:00 09/16/24 08:44 Sertraline Hcl 50 Mg Tablet PO 100 mg BID JERONIMO Administration Radiology Results: ITS Impressions Abdomen/Pelvis CT 09/13/24 06:52 Impression: Distended gallbladder with mild wall thickening and cholelithiasis. Appearance suggests superimposed acute cholecystitis. Consider HIDA scan for further evaluation as indicated. Mild dilatation of the common bile duct and mild intrahepatic biliary dilatation. Consider MRCP to assess for common duct stone as indicated. No evidence for acute pancreatitis. Cholangiogram,Operative 09/13/24 15:49 IMPRESSION: 1. Worsened intrahepatic and extrahepatic biliary duct dilatation with stone versus stricture in the distal common bile duct. Endo Retro Cholangiopancreatogram 09/15/24 14:52 IMPRESSION: 1. Dilated common duct. Please refer to the ERCP procedure note for additional details. Labs Labs: Laboratory Results - last 24 hr 09/16/24 06:56 WBC 5.0 RBC 3.42 L Hgb 10.1 L Hct 30.6 L MCV 89.5 MCH 29.5 MCHC 33.0 RDW 12.9 Plt Count 179 MPV 8.8 Sodium 136 L Potassium 3.8 Chloride 106 Carbon Dioxide 27 Anion Gap 3 L BUN 7 Creatinine 0.80 Estim Creat Clear Calc 87 Estimated GFR > 60 Glucose 93 Calcium 8.7 Total Bilirubin 1.2 AST 100 H ALT 400 H Alkaline Phosphatase 153 H Total Protein 6.0 L Albumin 3.6
== END 2024-09-16 13:00 | disposition home or self-care (01) | DRG 419 ==
LOC: ANHED 05:44 → ANH3MEDSUR 06:46
PROVIDERS: Internal Medicine Gastroenterology; Nurse Practitioner Family; Admitting Provider Surgery; Emergency Provider Emergency Medicine; PCP Nurse Practitioner Family; Visit Provider Surgery
PROC: 0FT44ZZ Resection of Gallbladder, Percutaneous Endoscopic Approach (ICD-10-PCS; CPT 47562; principal; 2024-09-13 13:45)
PROC: 0FC98ZZ Extirpation of Matter from Common Bile Duct, Via Natural or Artificial Opening Endoscopic (ICD-10-PCS; CPT 43260; principal; 2024-09-15 13:30)
DX: K80.01 Calculus of gallbladder with acute cholecystitis with obstruction (principal); K83.8 Other specified diseases of biliary tract; N83.201 Unspecified ovarian cyst, right side; K57.90 Diverticulosis of intestine, part unspecified, without perforation or abscess without bleeding; F41.1 Generalized anxiety disorder; K21.9 Gastro-esophageal reflux disease without esophagitis; Z87.891 Personal history of nicotine dependence
CPT/HCPCS: 36415; 74177; 74300; 74329; 80053; 81003; 81025; 83690; 85025; 85027; 86850; 86900; 86901; 88304; 96361; 96365; 96375; 96376; 99285; A9270; G0378; J0330; J1100; J1171; J1596; J1885; J2003; J2250; J2270; J2405; J2543; J2704; J3010; J7030; J7120; Q9966; Q9967

== ENCOUNTER 2024-09-26 15:08 | Outpatient (CLI) | payer OTHER, SELFPAY ==
--- NOTE | ~2024-09-26 | MM_ITS ---
EXAMINATION: MM screening blanca BI w karla HISTORY: Screening TECHNIQUE: Craniocaudal and mediolateral oblique 3-D tomosynthesis images were obtained and synthetic 2-D images were generated. CAD analysis was submitted and interpreted. COMPARISON: No prior mammogram is available for comparison at this institution. BREAST PARENCHYMAL COMPOSITION: Dense: The breasts are heterogeneously dense, which may obscure small masses FINDINGS: There is a low-density mass in the lower inner quadrant of the right breast, middle third. There is no mammographic evidence for malignancy in the left breast. IMPRESSION: 1. Low-density right breast mass, lower inner quadrant. 2. Additional mammographic views and possible breast ultrasound are recommended. BI-RADS Category 0: Incomplete: Needs additional imaging evaluation. Reviewed, dictated and finalized at location B. CHISE BROKER IMPRESSION: 1. Low-density right breast mass, lower inner quadrant. 2. Additional mammographic views and possible breast ultrasound are recommended . BI-RADS Category 0: Incomplete: Needs additional imaging evaluation.
== END 2024-09-26 15:09 | disposition home or self-care (01) ==
PROVIDERS: PCP Nurse Practitioner Family; Visit Provider Nurse Practitioner Family
DX: Z12.31 Encounter for screening mammogram for malignant neoplasm of breast (principal); N63.14 Unspecified lump in the right breast, lower inner quadrant; R92.8 Other abnormal and inconclusive findings on diagnostic imaging of breast
CPT/HCPCS: 77063; 77067

== ENCOUNTER 2024-09-27 14:27 | Outpatient (RCR) | payer OTHER, SELFPAY ==
--- NOTE | 2024-09-27 15:38 | OPREHPOC ---
Outpatient Therapy Plan of Care This is a Multidisciplinary Plan of Care that may contain components documented by all disciplines (PT, OT, and ST.) PT Problem 1 PT Problem #1 Knowledge Deficit PT Goal 1 Goal / Goal Update The patient will be independent in a home exercise program. Target Visit 4 PT Problem 2 PT Problem #2 Pain PT Goal 1 Goal / Goal Update The patient will report no greater than 2/10 left shoulder pain with reaching forward and laterally. The patient will report no pain in the left shoulder with sleeping. Target Visit 10 PT Problem 3 PT Problem #3 Impaired Functional Mobility PT Goal 1 Goal / Goal Update The patient will demonstrate 25% or less self perceived disability per the Quick DASH questionnaire. The patient will lift 5# overhead for 10 repetitions without increased pain. Target Visit 10
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
--- NOTE | 2024-10-02 14:42 | PCPTNOTE ---
Patient called and cancelled her scheduled appointment, stated she was at a doctor's appointment and will not be home in time to make her PT visit.
--- NOTE | 2024-10-09 12:30 | PCPTNOTE ---
Today treatment performed under supervision of the co-signing PT. I have reviewed all medical records.
--- NOTE | 2024-10-19 08:17 | PCPTNOTE ---
Cancelled session. Reports her shoulder is in a lot of pain today.
--- NOTE | 2024-10-23 17:15 | PCPTNOTE ---
Patient called & cancelled scheduled appointment this date.
--- NOTE | 2024-11-02 13:02 | PCPTNOTE ---
Cancelled session. Reports her daughter is sick and has to take her to urgent care.
--- NOTE | 2024-11-20 14:16 | PCPTNOTE ---
Pt. canceled her appointment and is going to urgent care.
--- NOTE | 2024-11-22 12:41 | PCPTNOTE ---
Cancelled session. Still sick.
--- NOTE | 2024-11-24 14:52 | PCPTNOTE ---
Cancelled session due to illness.
--- NOTE | 2024-12-26 15:26 | OPREHPOC ---
Outpatient Therapy Plan of Care This is a Multidisciplinary Plan of Care that may contain components documented by all disciplines (PT, OT, and ST.) PT Problem 1 PT Problem #1 Knowledge Deficit PT Goal 1 Goal / Goal Update The patient will be independent in a home exercise program. Target Visit 4 Progress Met PT Problem 2 PT Problem #2 Pain PT Goal 1 Goal / Goal Update The patient will report no greater than 2/10 left shoulder pain with reaching forward and laterally. The patient will report no pain in the left shoulder with sleeping. Target Visit 12 PT Problem 3 PT Problem #3 Impaired Functional Mobility PT Goal 1 Goal / Goal Update The patient will demonstrate 25% or less self perceived disability per the Quick DASH questionnaire. The patient will lift 5# overhead for 10 repetitions without increased pain. Target Visit 12
--- NOTE | 2024-12-26 15:26 | PTOPPROG ---
Assessment and note entered by JT File, PT Evaluation Information Assessment Status Progress ICD-10 Condition Codes (PT) Pain in left shoulder M25.512 Onset 06/11/24 Subjective Information patient has not been to skilled PT in about a month due to illness. she returns today with continued pain in the L shoulder. she reports she had another injection on just a few weeks ago, but reports it has not kicked in yet. she reports she still has pain in the L shoulder that is increased with lifting/reaching overhead, blowing drying/managing hair, and reaching out to open a door. Assessment PT Clinical Summary mrs. khalil presents to skilled PT for her 7th skilled PT visit. due to other illness, she has been away from PT for bout 1 month. however, she continues to have pain and deficits in functional use of the L shoulder/UE. she continues to lack achievement of pain and functional goals. continued skilled PT is indicated to improve her objective/functional deficits and progress towards a return to her prior level functional activity performance/quality of life. Plan of Care Interventions Electrical Stimulation,Hot Pack/Cold Pack,Manual Therapy,Neuro Re-education,Patient/Caregiver Education,Therapeutic Activities,Therapeutic Exercise PT Services Indicated Yes Treatment Frequency and continue skilled PT 2x weekly for 5 more visits ( Duration 12 total) These treatments will address the objective and functional deficits as defined above. The patient will be advanced safely and appropriately in order for the patient to progress towards his/her prior level of function. Additional exercises will be introduced and as well as a comprehensive home exercise program upon discharge, if needed, ?to ensure carryover of functional gains achieved in the clinic. This treatment plan has been reviewed and agreement upon by the patient.
== END 2024-12-26 23:59 | disposition home or self-care (01) ==
LOC: CHSPT 14:27
PROVIDERS: Visit Provider Nurse Practitioner Family
DX: M25.512 Pain in left shoulder (principal)
CPT/HCPCS: 97014; 97110; 97112; 97140; 97161; G0283

== ENCOUNTER 2024-10-02 14:03 | Outpatient (CLI) | payer OTHER, SELFPAY ==
[2024-10-02 14:24] LABS: Basophils Percent Auto 0.8 % (0.2-1.2); Eosinophils Absolute Auto 0.2 K/mm3 (0-0.3); Eosinophils Percent Auto 4.9 % (0-4.4); Hematocrit 34.7 % (37.0-47.0); Hemoglobin 11.7 g/dL (12.0-15.0); Immature Granulocyte Absolute 0.01 K/mm3 (0.00-0.031); Immature Granulocyte Percent A 0.2 % (0-0.5); Lymphocytes Absolute Auto 1.77 K/mm3 (0.9-3.2); Lymphocytes Percent Auto 36.4 % (18.3-44.2); Mean Corpuscular HGB Conc 33.7 g/dl (32-36); Mean Corpuscular Hemoglobin 29.3 pg (26-34); Mean Corpuscular Volume 86.8 fl (80-100); Mean Platelet Volume 8.9 fl (7.4-10.4); Monocytes Absolute Auto 0.4 K/mm3 (0.1-0.6); Monocytes Percent Auto 8.6 % (2.6-8.5); Neutrophils Absolute Auto 2.4 K/mm3 (1.3-6.7); Neutrophils Percent Auto 49.1 % (45.5-73.1); Platelet Count Result 275 k/mm3 (150-375); Red Cell Distribution Width 12.6 % (11.5-14.5); White Blood Count 4.9 K/mm3 (4.5-10.0)
[2024-10-02 14:40] LABS: Alanine Aminotransferase 46 U/L (6-35); Albumin Level 4.6 g/dL (3.5-5.1); Alkaline Phosphatase 89 U/L (38-126); Anion Gap 4 mmol/L (4-12); Aspartate Amino Transferase 33 U/L (14-36); Bilirubin,Total 0.7 mg/dL (0.2-1.3); Blood Urea Nitrogen 9 mg/dL (7-17); Calcium 9.5 mg/dL (8.4-10.2); Carbon Dioxide 27 mmol/L (22-30); Chloride 105 mmol/L (98-107); Estimated Glomerular Filt Rate > 60; Glucose 95 mg/dL (65-110); Lipase 180 U/L (23-300); Potassium 4.1 mmol/L (3.4-5.0); Sodium 136 mmol/L (137-145)
== END 2024-10-02 14:04 | disposition home or self-care (01) ==
LOC: ANHLAB 14:05
PROVIDERS: Visit Provider Surgery
DX: K81.0 Acute cholecystitis (principal)
CPT/HCPCS: 36415; 80053; 83690; 85025

== ENCOUNTER 2024-10-09 09:48 | Outpatient (CLI) | payer OTHER, SELFPAY ==
--- NOTE | ~2024-10-09 | MM_ITS ---
EXAMINATION: MM diagnostic blanca RT w karla HISTORY: 44-year-old woman returns for diagnostic evaluation of a finding within the lower inner righ t breast on screening mammography dated 09/26/2024. At that time no prior imaging is available for comparison. Since that time, examination performed 12/18/2022 has been presented for comparison. TECHNIQUE: Additional spot compression 3-D tomosynthesis images of the right breast were performed an d synthetic 2-D images were generated. CAD analysis was submitted and interpreted. COMPARISON: 12/18/2022 and 09/26/2024 BREAST PARENCHYMAL COMPOSITION:Not Dense. There are scattered areas of fibroglandular density. FINDINGS: MAMMOGRAPHIC FINDINGS: The asymmetry was present on outside examination dated 12/18/2022 for which no further follow-up perfo rmed. ULTRASOUND: No ultrasound was performed. IMPRESSION: No mammographic / tomographic evidence of malignancy. Resumption of yearly screening mammography is recommended. BI-RADS Category 2: Benign finding(s). Reviewed, dictated and finalized at location A. ECTION ENGINEER
== END 2024-10-09 09:49 | disposition home or self-care (01) ==
LOC: CHSIMG 09:49
PROVIDERS: PCP Nurse Practitioner Family; Visit Provider Family Medicine
DX: R92.8 Other abnormal and inconclusive findings on diagnostic imaging of breast (principal)
CPT/HCPCS: 77061; 77065; G0279

== ENCOUNTER 2024-12-28 14:30 | Outpatient (RCR) | payer OTHER, SELFPAY ==
--- NOTE | 2025-01-11 15:35 | PTOPREEVAL ---
Assessment and note entered by JT File, PT Evaluation Information Assessment Status Re-evaluation ICD-10 Condition Codes (PT) Pain in left shoulder M25.512 Onset 06/11/24 Subjective Information patient reports she feels better today, and in general has felt better over the last week. she reports she still has pain with far shoulder flexion overhead. however, this is less intense and painful than it was at the beginning of last week. Reported Pain Level Pain Score 2: Self Report Assessment PT Clinical Summary mrs. khlail presents to skilled PT for her 12th skilled PT visit today. she reports a reduction in pain at rest, and pain at worst recently, but overall she still has pain with far overhead reaching. she displays scapular weakness and L shoulder weakness still. continued skilled PT is indicated to improve her objective/functional deficits and progress towards a return to her prior level functional activity performance. Plan of Care Interventions Electrical Stimulation,Hot Pack/Cold Pack,Manual Therapy,Neuro Re-education,Patient/Caregiver Education,Therapeutic Activities,Therapeutic Exercise PT Services Indicated Yes Treatment Frequency and continue skilled PT 2x weekly for 6 more visits Duration These treatments will address the objective and functional deficits as defined above. The patient will be advanced safely and appropriately in order for the patient to progress towards his/her prior level of function. Additional exercises will be introduced and as well as a comprehensive home exercise program upon discharge, if needed, to ensure carryover of functional gains achieved in the clinic. This treatment plan has been reviewed and agreement upon by the patient.
--- NOTE | 2025-02-15 15:36 | OPREHPOC ---
Outpatient Therapy Plan of Care This is a Multidisciplinary Plan of Care that may contain components documented by all disciplines (PT, OT, and ST.) PT Problem 1 PT Problem #1 Knowledge Deficit PT Goal 1 Goal / Goal Update The patient will be independent in a home exercise program. Target Visit 4 Progress Met PT Problem 2 PT Problem #2 Pain PT Goal 1 Goal / Goal Update The patient will report no greater than 2/10 left shoulder pain with reaching forward and laterally. The patient will report no pain in the left shoulder with sleeping. Target Visit 18 Progress Not Met PT Problem 3 PT Problem #3 Impaired Functional Mobility PT Goal 1 Goal / Goal Update The patient will demonstrate 25% or less self perceived disability per the Quick DASH questionnaire. The patient will lift 5# overhead for 10 repetitions without increased pain. Target Visit 18 Progress Not Met PT Problem 4 PT Problem #4 Impaired Strength PT Goal 1 Goal / Goal Update 1. 4+/5 or better L shoulder strength without scapular winging. Target Visit 18 Progress Met
--- NOTE | 2025-02-15 15:36 | PTOPDC ---
Assessment and note entered by Richelle Hendrix, PT Evaluation Information Assessment Status Discharge ICD-10 Condition Codes (PT) Pain in left shoulder M25.512 Onset 06/11/24 Subjective Information Mayra reports her pain has reduced overall since starting PT. Her pain at rest is typically a 1 or 2/10 and increases to a round a 5/10 when reaching laterally and behind her back. She occasionally wakes up due to pain when moving in bed but overall this has improved as well. She also reports that she updated her doctor about her shoulder and her doctor has requested she get an MRI to see if any pathologies are present. Reported Pain Level Pain Score 1: Self Report Assessment PT Clinical Summary Mrs. Membreno has attended 18 total skilled PT visits for L shoulder pain. While she still experiences shoulder pain with reaching laterally and behind her back, her pain both at rest and with these movements have improved overall. She also notes less pain when sleeping. She has been independent with her HEP and has made good progress in her L shoulder strength. While she has not met all her therapeutic goals set for her, she feels capable of managing her shoulder pain on her own and will follow up with her doctor after her MRI. Plan of Care PT Services Indicated No
== END 2025-02-15 20:00 | disposition home or self-care (01) ==
LOC: CHSPT 14:30
PROVIDERS: Visit Provider Nurse Practitioner Family
DX: M25.512 Pain in left shoulder (principal)
CPT/HCPCS: 97014; 97110; 97112; 97140; 97530; G0283

== ENCOUNTER 2025-03-10 07:23 | Outpatient (CLI) | payer OTHER, SELFPAY ==
--- OUTSIDE RECORDS SUMMARY | 2025-03-10 07:26 | XMS_ITS | Clinical Summary ---
Author Organization [facility] Address [address] [place] [address] Care Team Providers Care Jet Pilot Name Role Phone Angelica Salazar NP Primary Care Provider [phone] [phone] Allergies No known active allergies Medications busPIRone (BUSPAR) 15 mg tabletIndicati ons:Generalize d Anxiety Disorder Take 1 tablet (15 mg total) by mouth 3 (three) times a day 5 8 Active montelukast (SINGULAIR) 10 mg tablet Take 1 tablet (10 mg total) by mouth daily 8 Active sertraline (ZOLOFT) 100 mg tablet Take 1 tablet (100 mg total) by mouth daily 5 8 Active cetirizine (ZyrTEC) 10 mg tablet Take 1 tablet (10 mg total) by mouth daily 9 Active dexmethylpheni date (FOCALIN) 10 mg tablet Take 1 tablet (10 mg total) by mouth 2 (two) times a day Taking as needed 0 Active Ubrelvy 50 mg tablet Take 1 tablet (50 mg total) by mouth as needed 2 Active cholecalcifero l (VITAMIN D-3) 2000 unit tablet Take 1 tablet (2,000 Units total) by mouth daily Active vitamin B complex capsule Take 1 capsule by mouth daily Active famotidine (PEPCID) 40 mg tablet Take 1 tablet (40 mg total) by mouth nightly as needed for heartburn Active Emgality Pen 120 mg/mL pen injector INJECT 120 MG SUBCUTANEOUSLY MONTHLY 3 Active nortriptyline (PAMELOR) 25 mg capsule Take 1 capsule (25 mg total) by mouth nightly 4 Active velzrmei-iol-a olic acid-vit K 400-80 mcg capsule Take 1 tablet/capsule by mouth Active ondansetron (ZOFRAN) 4 mg tablet Take 1 tablet (4 mg total) by mouth as needed 4 Active albuterol HFA (PROVENTIL HFA,VENTOLIN HFA,PROAIR HFA) 90 mcg/actuation inhaler INHALE 1 PUFF EVERY 4 HOURS NEEDED FOR SHORTNESS OF BREATH OR WHEEZING 5 Active cyclobenzaprin e (FLEXERIL) 10 mg tablet TAKE 1 TABLET BY MOUTH AT BEDTIME NEEDED FOR MUSCLE SPASMS. [address] (VOLTAREN) 75 mg EC tablet Take 1 tablet (75 mg total) by mouth 2 (two) times a day 60 tablet 5 026 Active Active Problems Problem Noted Date Diagnosed Date Adult attention deficit hyperactivity disorder 0 05/24/2018 Vaginal pain 05/21/2017 Encounter for gynecological examination without abnormal finding 04/16/2017 Vitamin deficiency 02/23/2017 Overview (09/12/2020): Note: Vitamin D deficiency = 27 Psychophysiological insomnia 09/10/2016 Miscarriage 08/04/2016 Normal 06/30/2016 Abnormal cervical Papanicolaou smear 07/09/2015 Generalized anxiety disorder 02/28/2015 Herpes simplex 02/28/2015 Major depression, recurrent 02/28/2015 Encounters Date Type Department Care Team Description 12/21/2024 2:30 PM CDT - 12/21/2024 11:59 PM CDT Hospital Encounter [facility] Advanced [address] Advanced Medicine [address] [place] [address] Felipe Moses MD Sacroiliitis Discharge Disposition: Discharge to home or self care 12/18/2024 Telephone [facility] On license of [facility] Advanced Medicine [address] [place] [address] Felipe Moses MD PMC Preprocedure 12/08/2024 3:00 PM CARTON FOLDER - 12/08/2024 11:59 PM CARTON FOLDER Hospital Encounter [facility] [address] [facility] [address] [place] [address] Felipe Moses MD Sacroiliitis (Primary Dx) Discharge Disposition: Discharge to home or self care from Last 3 Months Immunizations Immunization Administration Dates Next Due Influenza, Quadrivalent, Jacinta l Culture-based MDCK, Preservative Free, Antibiotic Free, Intramuscular 07/05/2020 Influenza, Quadrivalent, Split, Intramuscular Influenza, Quadrivalent, Spl it, Preservative Free, Intramuscular 11/27/2019,07/08/2017 Influenza, Trivalent, IM (MDV) 09/10/2015 Influenza, Trivalent, Preservative Free, Intramu scular 06/30/2016 Surgical History Surgery Date Site/Laterality Comments [place] DELIVERY ONLY Section - (Added by TW Conv) LOOP ELECTROSURGICAL EXCISION PROCEDURE Cervical Loop Electrosurgical Excision (LEEP) - (Added by TW Conv) CHOLECYSTECTOMY 10/11/2024 - 10/10/2025 Medical History Medical History Date Comments Dysuria Dysuria - (Added by TW Conv) Fatigue Abnormal heart rhythm Heartburn Difficulty urinating STD (female) Headache Weakness Numbness Dizziness Depression Anxiety Chronic pain disorder Low back pain Family History Medical History Relation Name Comments Depression Father Diabetes Father Hypertension Father Lung cancer Maternal Grandfather Family history of lung cancer - (Added by TW Conv) Lung cancer Maternal Grandmother Family history of lung cancer - (Added by TW Conv) Stroke Maternal Grandmother Breast cancer Mother Family history of malignant neoplasm of breast - (Added by TW Conv) Lung cancer Mother Family history of lung cancer - (Added by TW Conv) Breast cancer Other Family history of malignant neoplasm of breast - (Added by TW Conv) Relation Name Status Comments Father Maternal Grandfather Maternal Grandmother Mother Other Social History Tobacco Use Types Packs/Day Years Used Date Smoking Tobacco: Former Vaping Smokeless Tobacco: Never Tobacco Cessation:Counseling Given: Not Answered Comments:less than daily Alcohol Use Standard Drinks/Week Comments Yes 0 (1 standard drink = 0.6 oz pur e alcohol) once a week AUDIT-C Answer Date Recorded Q1: How often do you have a drink containing alc ohol? 2-4 times a month 12/21/2024 Q2: How many drinks containi ng alcohol do you have on a typical day when you are drinking? 1 or 2 12/21/2024 Q3: How often do you have si x or more drinks on one occasion? Never 12/21/2024 Exercise Vital Sign Answer Date Recorde d On average, how many days pe r week do you engage in moderate to strenuous exercise (like a brisk walk)? 0 days 09/12/2020 On average, how many minutes do you engage in exercise at this level? 0 min 09/12/2020 Hunger Vital Sign Answer Date Recorded Within the past 12 months, y ou worried that your food would run out before you got the money to buy more. Never true 12/08/19 25 Within the past 12 months, t he food you bought just didn't last and you didn't have money to get more. Never true 12/08/2024 Comments No Sex and Gender Information Value Date Recorded Sex Assigned at Not on file Legal Sex Female 4:49 AM CARTON FOLDER Gender Identity Female 11/10/2022 8:02 PM CARTON FOLDER Sexual Orientation Not on file Obstetrics History Para Term AB IAB SAB Ectopic Multiple Livin g Live Births 2 1 1 1 1 1 1 Date Outcome GA Total Labor Labor/2nd/3rd Weight Sex Type Anes PTL [place] A1 A5 Name Clin Term Living SAB Last Filed Vital Signs Vital Sign Reading Time Taken Comments Blood Pressure 132/67 12/21/2024 4:06 PM CDT Pulse 76 12/21/2024 4:06 PM CDT Temperature 36.5 C (97.7 F) 12/21/2024 2:54 PM CDT Respiratory Rate 16 12/21/2024 4:06 PM CDT Oxygen Saturation 96% 12/21/2024 4:06 PM CDT Room air Inhaled Oxygen Concentration - - Weight 88 kg (194 lb 1.6 oz) 08/08/2024 10:59 AM CDT Height 170.2 cm (5' 7) 08/08/2024 10:59 AM CDT Body Mass Index 30.4 08/08/2024 10:59 AM CDT Plan of Treatment Health Maintenance Due Date Last Done Comments Depression Screening 1980 Hepatitis C Screening 1980 DTaP/Tdap/Td Vaccine (1 - Tdap) 1991 Varicella Vaccines (1 of 2 - 13+ 2-dose series) 1993 Hepatitis B Screening 1998 Cervical Cancer Screening 06/30/2017 06/30/2016 Regular Well Visit/Exam 18-64 09/12/2021 09/12/2020, 03/21/2019 Breast Cancer Screening-Mammogram 12/19/2023 12/18/2022, 08/04/2016 Covid-19 Vaccine ( season) 2024 10/31/2021, 12/03/2020, 11/12/2020 Influenza Vaccine (Season Ended) 2025 08/06/2021, 07/05/2020, 11/27/2019, Additional history exists HPV Vaccines Aged Out No longer eligi ble based on patient's age to complete this topic Pneumococcal vaccine <65 Aged Out No longer eligible based on patient's age to complete this topic Goals Goal Patient Goal Type Associated Problems Recent Progress Patient-Stated? Author CCM Chronic Pain Care Plan Chronic Care Management No change(12/21 3:01 PM CDT) No Patti Santiago, RN Note: Problem: Chronic Pain Goals: 1. Minimize further functional decline 2. Maximize quality of life 3. Control pain Strategies: - Activity/exercise program recommendation - Conservative stepwise pain medicine strategy with multi-disciplinary approach - Recommend healthy lifestyle strategies and compensatory methods as needed Procedures Procedure Name Priority Date/Time Associated Diagnosis Comments PAIN MGMT IMAGING SI JOINT LEFT Schedule Routine, Read Routine (OP Routine) 12/21/2024 3:54 PM CDT Sacroiliitis SCREENING MAMMOGRAM BILATERAL W BÁRBARA Schedule Routine, Read Routine (OP Routine) 12/18/2022 10:26 AM CARTON FOLDER Screening mammogram, encounter for HM PAP SMEAR WITH HPV Routine 06/30/2016 from Last 3 Months or Most Recently Relevant to Health Maintenance Results * Imaging SI Joint Injection Left ([id number]) (12/21/2024 3:54 PM CDT) Narrative RAD_PACS_BJ - 12/21/2024 3:54 PM CDT The images from this study are not interpreted by Radiology. Please refer to the physician's procedure / OR operative note. Felipe Moses MD IMG PAIN MGMT PROCEDURES Final Result RAD_PACS_[facility] * Screening Mammogram Bilateral W Bárbara (12/18/2022 10:26 AM CARTON FOLDER) Anatomical Region Laterality Modality Breast Bilateral Mammography Narrative 12/21/2022 2:53 PM CDT Mammogram Technique: Bilateral Digital Breast Tomosynthesis, Bilateral C-view 2D Screening mammogram. Views obtained: bilateral craniocaudal and bilateral mediolateral oblique. Computer Aided Detection was performed. Mammogram Findings: The present examination has been compared to a prior imaging study performed at [facility] on 08/04/2016. The breasts are heterogeneously dense, which may obscure small masses. There is no suspicious abnormality in either breast. Impression: There is no mammographic evidence of malignancy. Annual screening mammography is recommended. OVERALL FINAL ASSESSMENT: BI-RADS CATEGORY 1: Negative. Procedure Note Aaliyah Carrillo MD - 12/21/2022 Mammogram Technique: Bilateral Digital Breast Tomosynthesis, Bilateral C-view 2D Screening mammogram. Views obtained: bilateral craniocaudal and bilateral mediolateral oblique. Computer Aided Detection was performed. Mammogram Findings: The present examination has been compared to a prior imaging study performed at [facility] on 08/04/2016. The breasts are heterogeneously dense, which may obscure small masses. There is no suspicious abnormality in either breast. Impression: There is no mammographic evidence of malignancy. Annual screening mammography is recommended. OVERALL FINAL ASSESSMENT: BI-RADS CATEGORY 1: Negative. us Self Screening Mammogram IMG MAMMO PROCEDURES Fi nal Result * HM PAP SMEAR WITH HPV (06/30/2016) HM Pap smear Normal Historical Provider HEALTH MAINTENANCE Final Result from Last 3 Months or Most Recently Relevant to Health Maintenance Insurance [employer] Ischemia [employer] [facility] CIG Care Teams Jet Pilot Relationship Specialty Start Date End Date Angelica Salazar NP [address] [place] [address] PCP - General Nurse Practitioner 03/18/22
--- OUTSIDE RECORDS SUMMARY | 2025-03-10 07:26 | XMS_ITS | Encounter Summary ---
Author Organization [facility] Healthcare Address [address] [place] [address] Care Team Providers Care Tanker Service Attendant Name Role Phone Angelica Salazar STREET PHOTOGRAPHER Primary Care Provider [phone] Reason for Visit * Reason Onset Date Comments PMC Preprocedure 08/04/2024 Encounter Details Date Type Department Care Team (Late st Contact Info) Description 08/04/[address] [facility] [place] [facility] [address] [facility] Advanced Medicine [address] [place] [address] Felipe Moses MD [address] [place] [address] PMC Preprocedure Social History Tobacco Use Types Packs/Day Years Used Date Smoking Tobacco: Former Vaping Smokeless Tobacco: Never Comments:less than daily Alcohol Use Standard Drinks/Week Comments Yes 0 (1 standard drink = 0.6 oz pur e alcohol) once a week AUDIT-C Answer Date Recorded Q1: How often do you have a drink containing alc ohol? Monthly or less 08/08/2024 Q2: How many drinks containi ng alcohol do you have on a typical day when you are drinking? 3 or 4 08/08/2024 Q3: How often do you have si x or more drinks on one occasion? Less than monthly 08/08/2024 Exercise Vital Sign Answer Date Recorde d On average, how many days pe r week do you engage in moderate to strenuous exercise (like a brisk walk)? 0 days 09/12/2020 On average, how many minutes do you engage in exercise at this level? 0 min 09/12/2020 Comments No Sex and Gender Information Value Date Recorded Sex Assigned at Not on file Legal Sex Female 4:49 AM EMERGENCY MEDICINE SPECIALIST Gender Identity Female 11/10/2022 8:02 PM EMERGENCY MEDICINE SPECIALIST Sexual Orientation Not on file documented as of this encounter Plan of Treatment Not on file documented as of this encounter Goals Goal Patient Goal Type Associated Problems Recent Progress Patient-Stated? Author CCM Chronic Pain Care Plan Chronic Care Management No change(12/21 3:01 PM CDT) No Patti Santiago, DESIRE Note: Problem: Chronic Pain Goals: 1. Minimize further functional decline 2. Maximize quality of life 3. Control pain Strategies: - Activity/exercise program recommendation - Conservative stepwise pain medicine strategy with multi-disciplinary approach - Recommend healthy lifestyle strategies and compensatory methods as needed documented as of this encounter Visit Diagnoses Not on filedocumented in this encounter Care Teams Tanker Service Attendant Relationship Specialty Start Date End Date Angelica Salazar NP [address] [place] [address] PCP - General Nurse Practitioner 03/18/22 documented as of this encounter
--- OUTSIDE RECORDS SUMMARY | 2025-03-10 07:26 | XMS_ITS | Encounter Summary ---
Author Organization [facility] Healthcare Address [address] [place] [address] Care Team Providers Care Ear Nose Throat Surgeon Name Role Phone Dereck Galloway MD Primary Care Provider [phone] Angelica Salazar NP Primary Care Provider [phone] Encounter Details Date Type Department Care Team (Late st Contact Info) Description 10/09/[address] [place] [address] Alicia James, RT Social History Tobacco Use Types Packs/Day Years Used Date Smoking Tobacco: Former Smokeless Tobacco: Never Alcohol Use Standard Drinks/Week Comments Yes 0 (1 standard drink = 0.6 oz pur e alcohol) once a week Exercise Vital Sign Answer Date Recorde d [...] on file Legal Sex Female 4:49 AM LIFE SCIENCES MANAGER Gender Identity Female 11/10/2022 8:02 PM LIFE SCIENCES MANAGER Sexual Orientation Not on file documented as of this encounter Plan of Treatment Not on file documented as of this encounter Visit Diagnoses Not on filedocumented in this encounter Care Teams Ear Nose Throat Surgeon Relationship Specialty Start Date End Date Dereck Galloway MD PCP - General 09/12/20 03/17/22 Angelica Salazar NP [address] [place] [address] PCP - General Nurse Practitioner 03/18/22 documented as of this encounter
--- OUTSIDE RECORDS SUMMARY | 2025-03-10 07:27 | XMS_ITS | Referral Summary ---
Author Organization [facility] Address [address] [place] [address] Care Team Providers Care Library Helper Name Role Phone Angelica Salazar PRELIMINARY SCHOOL PSYCHOLOGIST Primary Care Provider [phone] Encounters Date Type Department Care Team Description 12/21/2024 2:30 PM CDT - 12/21/2024 11:59 PM CDT Hospital Encounter [facility] [address] [place] [address] Advanced Medicine [address] [place] [address] Felipe Moses MD Sacroiliitis Discharge Disposition: Discharge to home or self care 12/18/2024 Telephone [facility] [address] [place] [address] Advanced Medicine [address] [place] [address] Felipe Moses MD PMC Preprocedure 12/08/2024 3:00 PM CARDIAC SPECIALIST - 12/08/2024 11:59 PM CARDIAC SPECIALIST Hospital Encounter [facility] [address] [place] [address] Advanced Medicine [address] [place] [address] Felipe Moses MD Sacroiliitis (Primary Dx) Discharge Disposition: Discharge to home or self care from Last 3 Months Allergies No known active allergies Medications busPIRone (BUSPAR) 15 mg tabletIndicati ons:Generalize d Anxiety Disorder Take 1 tablet (15 mg total) by mouth 3 (three) times a day 5 8 Active montelukast (SINGULAIR) 10 mg tablet Take 1 tablet (10 mg total) by mouth daily 11 8 Active sertraline (ZOLOFT) 100 mg tablet [...] mg total) by mouth nightly 4 Active qtkxmmub-ifm-e olic acid-vit K 400-80 mcg capsule Take [...] Herpes simplex 02/28/2015 Major depression, recurrent 02/28/2015 Immunizations Immunization Administration Dates Next Due Influenza, Quadrivalent, Jacinta l Culture-based MDCK, Preservative Free, Antibiotic Free, Intramuscular 07/05/2020 Influenza, Quadrivalent, Split, Intramuscular Influenza, Quadrivalent, Spl it, Preservative Free, Intramuscular 11/27/2019,07/08/2017 Influenza, Trivalent, IM (MDV) 09/10/2015 Influenza, Trivalent, Preservative Free, Intramu scular 06/30/2016 Social History Tobacco Use Types Packs/Day Years [...] on file Legal Sex Female 4:49 AM CARDIAC SPECIALIST Gender Identity Female 11/10/2022 8:02 PM CARDIAC SPECIALIST Sexual Orientation Not on file Last Filed Vital Signs Vital Sign Reading [...] 08/08/2024 10:59 AM CDT Plan of Treatment Not on file Goals Goal Patient Goal Type Associated Problems [...] Read Routine (OP Routine) 12/18/2022 10:26 AM CARDIAC SPECIALIST Screening mammogram, encounter for HM PAP SMEAR WITH HPV Routine 06/30/2016 from Last 3 Months or Most Recently Relevant to Health Maintenance Results * Imaging SI Joint Injection Left ([id number]) (12/21/2024 3:54 PM CDT) Narrative RAD_PACS_BJ - 12/21/2024 3:54 PM CDT The images from this study are not interpreted by Radiology. Please refer to the physician's procedure / OR operative note. us Felipe Moses MD IMG PAIN MGMT PROCEDURES Final Result RAD_PACS[facility] * Screening Mammogram Bilateral W Bárbara (12/18/2022 10:26 AM CARDIAC SPECIALIST) Anatomical Region Laterality Modality Breast Bilateral Mammography Narrative 12/21/2022 2:53 PM CDT Mammogram Technique: Bilateral Digital Breast Tomosynthesis, Bilateral C-view 2D Screening mammogram. Views obtained: bilateral craniocaudal and bilateral mediolateral oblique. Computer Aided Detection was performed. Mammogram Findings: The present examination has been compared to a prior imaging study performed at [facility] on 08/04/2016. The breasts are heterogeneously dense, [...] to a prior imaging study performed at [facility] on 08/04/2016. The breasts are heterogeneously dense, [...] Recently Relevant to [place] [id number] [email or web address] [facility] CIGNA Care Teams Library Helper Relationship Specialty Start Date End Date Angelica Salazar NP [address] [place] [address] PCP - General Nurse Practitioner 03/18/22
[2025-03-10 07:36] LABS: Basophils Absolute Auto 0.02 K/mm3 (0.00-0.10); Basophils Percent Auto 0.4 % (0.0-1.0); Eosinophils Absolute Auto 0.23 K/mm3 (0.02-0.50); Eosinophils Percent Auto 4.4 % (1.0-6.0); Hematocrit 36.8 % (35.0-49.0); Hemoglobin 12.2 g/dL (12.0-15.0); Immature Granulocyte Absolute 0.01 K/mm3 (0.00-0.00); Immature Granulocyte Percent A 0.2 % (0.0-0.0); Lymphocytes Percent Auto 28.6 % (18.0-42.0); Mean Corpuscular HGB Conc 33.2 g/dL (32-36); Mean Corpuscular Hemoglobin 28.9 pg (27.0-31.0); Mean Corpuscular Volume 87.2 fL (78.0-102.0); Mean Platelet Volume 8.8 fl (9.2-11.8); Monocytes Absolute Auto 0.39 K/mm3 (0.10-0.90); Monocytes Percent Auto 7.4 % (2.0-11.0); Neutrophils Absolute Auto 3.09 K/mm3 (1.70-7.20); Platelet Count Result 238 K/mm3 (150-420); Red Blood Count 4.22 M/mm3 (4.20-5.40); Red Cell Distribution Width 12.4 % (11.6-14.4); White Blood Count 5.2 K/mm3 (4.8-10.8)
[2025-03-10 08:25] LABS: Alanine Aminotransferase 31 U/L (6-35); Albumin Level 4.3 g/dL (3.5-5.1); Alkaline Phosphatase 58 U/L (38-126); Anion Gap 3 mmol/L (4-12); Aspartate Amino Transferase 32 U/L (14-36); Bilirubin,Total 0.5 mg/dL (0.2-1.3); Blood Urea Nitrogen 12 mg/dL (7-17); Calcium 9.1 mg/dL (8.4-10.2); Carbon Dioxide 28 mmol/L (22-30); Chloride 108 mmol/L (98-107); Cholesterol 197 mg/dL (0-200); Estimated Glomerular Filt Rate > 60; Glucose 95 mg/dL (65-110); HDL Direct 63 mg/dL; Iron 67 ug/dL (37-170); LDL Cholesterol Calculated 123 mg/dL (<130); Osmolality Calculated 287 mOsm/kg (285-295); Potassium 3.9 mmol/L (3.4-5.0); Sodium 139 mmol/L (137-145); Total Protein 7.2 g/dL (6.3-8.2); Triglycerides 54 mg/dL (<150)
[2025-03-10 08:34] LABS: Percent Iron Saturation 20 % (20-50)
== END 2025-03-10 07:24 | disposition home or self-care (01) ==
LOC: CHSLAB 07:25
PROVIDERS: PCP Nurse Practitioner Family; Visit Provider Nurse Practitioner Family
DX: Z00.00 Encounter for general adult medical examination without abnormal findings (principal); R00.2 Palpitations
CPT/HCPCS: 36415; 80053; 80061; 83036; 83540; 83550; 84443; 85025

== ENCOUNTER 2025-04-03 08:34 | Outpatient (CLI) | payer OTHER, SELFPAY ==
--- NOTE | 2025-04-06 08:48 | WPDHOLTEREM ---
Holter/Event Monitor Holter/Event Monitor Date of procedure: 04/03/25 Holter/Event Procedure: 48 Hr Holter Monitor Indications: Palpitations Conclusion: 1. 48 hour holter monitor on 04/03/25. 2. Underlying rhythm is sinus rhythm. HR range 44-160 bpm; average 80 bpm. HR at 44 bpm was 6:01 am. HR at 160 bpm was at 3:00 pm. 3. There are 26 premature supraventricular complexes. No supraventricular tachycardia. 4. There are 18,886 premature ventricular complexes, 6 ventricular couplets, 3,941 ventricular bigeminy and 12 ventricular trigeminy. No ventricular tachycardia. 5. No significant pauses greater than 2 seconds. 6. Patient reports symptoms of palpitations, stressed which demonstrate sinus rhythm, HR range 70-113 bpm and 1 episode with ventricular bigeminy.
== END 2025-04-03 08:35 | disposition home or self-care (01) ==
PROVIDERS: PCP Nurse Practitioner Family; Visit Provider Nurse Practitioner Family
DX: R06.02 Shortness of breath (principal); R00.2 Palpitations
CPT/HCPCS: 93225; 93226

== ENCOUNTER 2025-05-02 10:57 | Outpatient (CLI) | payer OTHER, SELFPAY ==
--- OUTSIDE RECORDS SUMMARY | 2025-05-02 11:09 | XMS_ITS | Encounter Summary ---
Author Organization [facility] Healthcare Address [address] [place] [address] Care Team Providers Care Matrix Drier Tender Name Role Phone Angelica Salazar ASSOCIATE PROFESSOR OF SURGERY Primary Care Provider [phone] Reason for Visit * Reason Onset Date Comments PMC Preprocedure 08/04/2024 Encounter Details Date Type Department Care Team (Late st Contact Info) Description 08/04/2024 Telephone [facility] [place] [facility] [address] [facility] Advanced Medicine [address] [place] [address] Felipe Moses MD [address] [place] [address] PMC Preprocedure Social History Tobacco Use Types [...] on file Legal Sex Female 4:49 AM PRODUCE FIELD MERCHANDISER Gender Identity Female 11/10/2022 8:02 PM PRODUCE FIELD MERCHANDISER Sexual Orientation Not on file documented as [...] on filedocumented in this encounter Care Teams Matrix Drier Tender Relationship Specialty Start Date End Date Angelica Salazar NP [address] [place] [address] PCP - General Nurse Practitioner 03/18/22 documented as of this encounter
--- OUTSIDE RECORDS SUMMARY | 2025-05-02 11:09 | XMS_ITS | Referral Summary ---
Author Organization [facility] Address [address] [place] [address] Care Team Providers Care Bench Jeweler Name Role Phone Angelica Salazar NP Primary Care Provider [phone] Allergies No known active allergies Medications busPIRone [...] mg total) by mouth nightly 4 Active zvoulbco-rcj-j olic acid-vit K 400-80 mcg capsule Take [...] on file Legal Sex Female 4:49 AM ENGINEER STATION MAINLINE Gender Identity Female 11/10/2022 8:02 PM ENGINEER STATION MAINLINE Sexual Orientation Not on file Last Filed [...] Care Management No change(12/21 3:01 PM CDT) Patti Laird, RN Note: Problem: Chronic Pain Goals: 1. Minimize further functional decline 2. Maximize quality of life 3. Control pain Strategies: - Activity/exercise program recommendation - Conservative stepwise pain medicine strategy with multi-disciplinary approach - Recommend healthy lifestyle strategies and compensatory methods as needed Procedures Procedure Name Priority Date/Time Associated Diagnosis Comments SCREENING MAMMOGRAM BILATERAL W BÁRBARA Schedule Routine, Read Routine (OP Routine) 12/18/2022 10:26 AM ENGINEER STATION MAINLINE Screening mammogram, encounter for HM PAP SMEAR WITH HPV Routine 06/30/2016 from Last 3 Months or Most Recently Relevant to Health Maintenance Results * Screening Mammogram Bilateral W Bárbara (12/18/2022 10:26 AM ENGINEER STATION MAINLINE) Anatomical Region Laterality Modality Breast Bilateral Mammography Narrative 12/21/2022 2:53 PM CDT Mammogram Technique: Bilateral Digital Breast Tomosynthesis, Bilateral C-view 2D Screening mammogram. Views obtained: bilateral craniocaudal and bilateral mediolateral oblique. Computer Aided Detection was performed. Mammogram Findings: The present examination has been compared to a prior imaging study performed at [facility] on 08/04/2016. The breasts are heterogeneously [...] to a prior imaging study performed at [facility] on 08/04/2016. The breasts are heterogeneously dense, which may obscure small masses. There is no suspicious abnormality in either breast. Impression: There is no mammographic evidence of malignancy. Annual screening mammography is recommended. OVERALL FINAL ASSESSMENT: BI-RADS CATEGORY 1: Negative. Self Screening Mammogram IMG MAMMO PROCEDURES Fi nal Result * PAP SMEAR WITH HPV (06/30/2016) Pap smear Normal Historical Provider HEALTH MAINTENANCE Final Result from Last 3 Months or Most Recently Relevant to Health Maintenance Insurance [employer] [facility] Scientific Revenue Care Teams Bench Jeweler Relationship Specialty Start Date End Date Angelica Salazar NP [address] [place] [address] PCP - General Nurse Practitioner 03/18/22
--- OUTSIDE RECORDS SUMMARY | 2025-05-02 11:09 | XMS_ITS | Encounter Summary ---
Author Organization [facility] Healthcare Address [address] [place] [address] Care Team Providers Care Watch Inspector Name Role Phone Dereck Galloway MD Primary Care Provider Angelica Salazar NP Primary Care Provider [phone] Encounter Details Date Type Department Care Team (Late st Contact Info) Description 10/09/[address] [place] [address] Alicia James, RT Social History Tobacco Use [...] on file Legal Sex Female 4:49 AM MEDICAL INSURANCE CODING SPECIALIST Gender Identity Female 11/10/2022 8:02 PM MEDICAL INSURANCE CODING SPECIALIST Sexual Orientation Not on file documented as of this encounter Plan of Treatment Not on file documented as of this encounter Visit Diagnoses Not on filedocumented in this encounter Care Teams Watch Inspector Relationship Specialty Start Date End Date Dereck Galloway MD PCP - General 09/12/20 03/17/22 Angelica Salazar NP [address] [place] [address] PCP - General Nurse Practitioner 03/18/22 documented as of this encounter
--- OUTSIDE RECORDS SUMMARY | 2025-05-02 11:09 | XMS_ITS | Clinical Summary ---
Author Organization [facility] Address [address] [place] [address] Care Team Providers Care Pot Pusher Name Role Phone Angelica Salazar NP Primary Care Provider [phone] Allergies No known active allergies Medications busPIRone [...] mg total) by mouth nightly 4 Active ifnsmjof-bgc-j olic acid-vit K 400-80 mcg capsule Take [...] 06/30/2016 Surgical History Surgery Date Site/Laterality Comments [place] DELIVERY ONLY Section - (Added by TW [...] on file Legal Sex Female 4:49 AM PIPELINES MANAGER Gender Identity Female 11/10/2022 8:02 PM PIPELINES MANAGER Sexual Orientation Not on file Obstetrics History [...] season) 2024 10/31/2021, 12/03/2020, 11/12/2020 Influenza Vaccine (#1) 2025 , 07/05/2020, 11/27/2019, Additional history exists HPV Vaccines Aged Out No longer eligi ble based on patient's age to complete this topic Pneumococcal vaccine <65 Aged Out No longer eligible based on patient's age to complete this topic Goals Goal Patient Goal Type Associated Problems Recent Progress Patient-Stated? Author CCM Chronic Pain Care Plan Chronic Care Management No change(12/21 3:01 PM CDT) No Patti Santiago RN Note: Problem: Chronic Pain Goals: 1. [...] Read Routine (OP Routine) 12/18/2022 10:26 AM PIPELINES MANAGER Screening mammogram, encounter for HM PAP SMEAR WITH HPV Routine 06/30/2016 from Last 3 Months or Most Recently Relevant to Health Maintenance Results * Screening Mammogram Bilateral W Bárbara (12/18/2022 10:26 AM PIPELINES MANAGER) Anatomical Region Laterality Modality Breast Bilateral Mammography Narrative 12/21/2022 2:53 PM CDT Mammogram Technique: Bilateral Digital Breast Tomosynthesis, Bilateral C-view 2D Screening mammogram. Views obtained: bilateral craniocaudal and bilateral mediolateral oblique. Computer Aided Detection was performed. Mammogram Findings: The present examination has been compared to a prior imaging study performed at [facility] on 08/04/2016. The breasts are heterogeneously [...] to a prior imaging study performed at [facility] on 08/04/2016. The breasts are heterogeneously [...] Most Recently Relevant to Health Maintenance Insurance [employer] [facility] CIG[employer] Care Teams Pot Pusher Relationship Specialty Start Date End Date Angelica Salazar NP [address] [place], [place] [id number] PCP - General Nurse Practitioner 03/18/22
--- NOTE | 2025-05-04 15:02 | P.PCNPFT_ITS ---
PFT Interpretation DOS: 05/02/2025 REQUESTING: Jonathan De Jesus APRN REASON FOR TESTING: Shortness of breath PULMONARY FUNCTION TESTS Results are reliable and reproducible. Repeatability of spirometry FEV1 maneuver pre and post bronchodilator is Grade A. Dougherty: Mary Cotton Dust reference equations were used. Spirometry: The pre-bronchodilator FEV1 is 3.47 L, 119%. The pre-bronchodilator FVC is 3.37 L, 123%. The FEV1/FVC ratio is 79%. After bronchodilator, the FEV1 is 3.61 L, 124%, +4%. After bronchodilator, the FVC is 4.30 L, 121%, -2%. The FEV1/FVC ratio is 84%. Lung volumes: The total lung capacity is 6.06 L, 108%. The FRC is 3.14 L, 112%. The residual volume is 1.58 L, 81%. The RV/TLC is 26%. Airway resistance is elevated. Diffusion: DLCO is 22.1, 84%, normal. The DLCO/VA is 3.99, 95%, normal. Flow volume loop: The flow volume loop shows mild flattening of the expiratory limb which is reproducible. This is a nonspecific pattern. IMPRESSION: This study shows normal spirometry without response to bronchodilator, normal lung volumes, and normal diffusion. Lack of response to bronchodilator should not preclude use if clinically indicated. No prior studies to compare. Bethanie Bustos MD
== END 2025-05-02 10:58 | disposition home or self-care (01) ==
LOC: CHSLAB 10:59
PROVIDERS: PCP Nurse Practitioner Family; Visit Provider Nurse Practitioner Family
DX: R06.02 Shortness of breath (principal)
CPT/HCPCS: 94060; 94726; 94729

== ENCOUNTER 2025-06-01 08:35 | Outpatient (CLI) | payer OTHER, SELFPAY ==
--- OUTSIDE RECORDS SUMMARY | 2025-06-01 08:38 | XMS_ITS | Encounter Summary ---
Author Organization [facility] Healthcare Address [address] [place] [address] Care Team Providers Care Dye Range Feeder Name Role Phone Dereck Galloway MD Primary Care Provider [phone] Angelica Salazar NP Primary Care Provider [phone] Encounter Details Date Type Department Care Team (Late st Contact Info) Description 10/09/[address] [place] [address] Alicia James, RT Social History Tobacco Use [...] on file Legal Sex Female 4:49 AM PROJECT MANAGER RETAIL Gender Identity Female 11/10/2022 8:02 PM PROJECT MANAGER RETAIL Sexual Orientation Not on file documented as of this encounter Plan of Treatment Not on file documented as of this encounter Visit Diagnoses Not on filedocumented in this encounter Care Teams Dye Range Feeder Relationship Specialty Start Date End Date Dereck Galloway MD PCP - General 09/12/20 03/17/22 Angelica Salazar NP [address] [place] [address] PCP - General Nurse Practitioner 03/18/22 documented as of this encounter
--- OUTSIDE RECORDS SUMMARY | 2025-06-01 08:38 | XMS_ITS | Clinical Summary ---
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 Gender Identity Female 11/10/2022 8:02 PM INDUSTRIAL MACHINERY MECHANIC Sexual Orientation Not on file Obstetrics History [...] 2-dose series) 1993 Hepatitis B Screening 1998 HPV Vaccines (1 - 3-dose SCDM series) 2007 Cervical Cancer Screening 06/30/2017 06/30/2016 Regular Well Visit/Exam 18-64 09/12/2021 09/12/2020, 03/21/2019 Breast Cancer Screening-Mammogram 12/19/2023 12/18/2022, 08/04/2016 Covid-19 Vaccine ( season) 2024 10/31/2021, 12/03/2020, 11/12/2020 Influenza Vaccine (#1) 2025 , 07/05/2020, 11/27/2019, Additional history exists Pneumococcal vaccine <65 Aged Out No longer [...] Read Routine (OP Routine) 12/18/2022 10:26 AM INDUSTRIAL MACHINERY MECHANIC Screening mammogram, encounter for HM PAP SMEAR WITH HPV Routine 06/30/2016 from Last 3 Months or Most Recently Relevant to Health Maintenance Results * Screening Mammogram Bilateral W Bár[place] (12/18/2022 10:26 AM INDUSTRIAL MACHINERY MECHANIC) Anatomical Region Laterality Modality Breast Bilateral Mammography Narrative 12/21/2022 2:53 PM CDT Mammogram Technique: Bilateral Digital Breast Tomosynthesis, Bilateral C-view 2D Screening mammogram. Views obtained: bilateral craniocaudal and bilateral mediolateral oblique. Computer Aided Detection was performed. Mammogram Findings: The present examination has been compared to a prior imaging study performed at [facility] on 08/04/2016. The breasts are heterogeneously [...] to a prior imaging study performed at [facility] on 08/04/2016. The breasts are heterogeneously dense, which may obscure small masses. There is no suspicious abnormality in either breast. Impression: There is no mammographic evidence of malignancy. Annual screening mammography is recommended. OVERALL FINAL ASSESSMENT: BI-RADS CATEGORY 1: Negative. Self Screening Mammogram IMG MAMMO PROCEDURES Fi nal Result * PAP SMEAR WITH HPV (06/30/2016) HM Pap smear Normal Historical Provider HEALTH MAINTENANCE Final Result from Last 3 Months or Most Recently Relevant to Health Maintenance Insurance [employer] [facility] [employer] Care Teams Refinery Operator Visbreaking Relationship Specialty Start Date End Date Angelica Salazar NP [address] [place] [address] PCP - General Nurse Practitioner 03/18/22
--- OUTSIDE RECORDS SUMMARY | 2025-06-01 08:38 | XMS_ITS | Encounter Summary ---
Author Organization [facility] Healthcare Address [address] [place] [address] Care Team Providers Care City Marshal Name Role Phone Angelica Salazar CASH APPLICATION CLERK Primary Care Provider [phone] Reason for Visit * Reason Onset Date Comments PMC Preprocedure 08/04/2024 Encounter Details Date Type Department Care Team (Late st Contact Info) Description 08/04/2024 Telephone [facility] [place] [facility] [address] [facility] [address] [place] [address] Felipe Moses MD [address] [place] [address] PMC Preprocedure Social History Tobacco Use Types [...] on file Legal Sex Female 4:49 AM BOX FEEDER Gender Identity Female 11/10/2022 8:02 PM BOX FEEDER Sexual Orientation Not on file documented as [...] on filedocumented in this encounter Care Teams City Marshal Relationship Specialty Start Date End Date Angelica Salazar NP [address] [place] [address] PCP - General Nurse Practitioner 03/18/22 documented as of this encounter
--- OUTSIDE RECORDS SUMMARY | 2025-06-01 08:38 | XMS_ITS | Clinical Summary ---
Author Organization [facility] Address [address] [place] [address] Care Team Providers Care Clean Up Worker Name Role Phone Unavailable Primary Care Provider Unavailabl e Social History Tobacco Use Types Packs/Day Years Used Date Smoking Tobacco: Never Assessed Comments Unknown Sex and Gender Information Value Date Recorded Sex Assigned at Not on file Legal Sex Female 5:57 PM BOWLING PIN REFINISHER Gender Identity Not on file Sexual Orientation Not on file Plan of Treatment Health Maintenance Due Date Last Done Comments Cervical Cancer Screening Pa p Smear (Age 30 to 64) Every 3 Years 1980 Annual Physical 1983 Hepatitis C 1998 DTaP, Tdap and Td Vaccines ( 1 - Tdap) 1999 Hepatitis B Vaccines (1 of 3 - 19+ 3-dose series) 1999 HPV Vaccines (1 - 3-dose SCD M series) 2007 Cervical Cancer Screening Pa p with HPV Testing (Age 30 to 64) Every 5 Years 2010 Cervical Cancer Screening with HPV 2010 Mammogram Screening 2020 COVID-19 Vaccine (2023-2 5 season) 2024 Meningococcal B Vaccine Aged Out No l onger eligible based on patient's age to complete this topic Meningococcal Vaccine Aged Out No cindy zafar eligible based on patient's age to complete this topic Pneumococcal Vaccine: Pediat rics (0 to 5 Years) and At-Risk Patients (6 to 49 Years) Aged Out No longer eligible b ased on patient's age to complete this topic RSV Immunizations Under 20 Months Aged Out No longer eligible based on patient's age to complete this topic
--- NOTE | 2025-06-01 09:00 | ECHO_ITS ---
Patient Info Name: Mayra Membreno Age: 44 years : 1980 Gender: Female Ht: 68 in Wt: 183 lbs BSA: 2.01 m2 HR: 54 bpm BP: 125 / 77 mmHg Technical Quality: Good Exam Date: 06/01/2025 9:00 AM Patient Status: O Admit Date: 06/01/2025 Exam Type: CA echo doppler color flow Complete two-dimensional, color flow and Doppler transthoracic echocardiogram is performed. Box Car Checker: Elaine Sam Attending Provider: Rene Dunn DO Summary 1. Complete two-dimensional, color flow and Doppler transthoracic echocardiogram is performed. 2. Left ventricular chamber dimension is normal. 3. Left ventricular systolic function is normal, estimated at 55-60. 4. The left ventricular diastolic function is normal. 5. E/e' 5 is not elevated. 6. There is trace mitral valve regurgitation. 7. There is trace tricuspid valve regurgitation. 8. No pulmonary hypertension, estimated pulmonary arterial systolic pressure is 27 mmHg. 9. There is trace pulmonic regurgitation. Left Ventricle E/e' 5 is not elevated. Left ventricular chamber dimension is normal. Left ventricular systolic function is normal, estimated at 55-60. The left ventricular diastolic function is normal. Right Ventricle Right ventricular chamber dimension is normal. Right ventricular systolic function is normal. Left Atria Left atrial chamber dimension is normal. Right Atria Right atrial chamber dimension is normal. Aortic Valve The aortic valve is trileaflet. There is no aortic valve stenosis. There is no aortic valve regurgitation. Pulmonic Valve There is trace pulmonic regurgitation. Mitral Valve There is no mitral valve stenosis. There is trace mitral valve regurgitation. Tricuspid Valve There is trace tricuspid valve regurgitation. No pulmonary hypertension, estimated pulmonary arterial systolic pressure is 27 mmHg. Pericardium/Pleural There is no pericardial effusion. Inferior Vena Cava Normal inferior vena cava with >50% collapse upon inspiration consistent with normal right atrial pressure, 5 mmHg. Aorta The aortic root size at the sinus of Valsalva is normal. Left Ventricular Outflow Tract Name Value Normal LVOT 2D LVOT Diameter 2.2 cm LVOT Doppler LVOT Peak Velocity 95 cm/s LVOT Peak Gradient 4 mmHg LVOT Mean Gradient 2 mmHg LVOT VTI 24 cm LVOT Stroke Volume 86 ml LVOT CO 4.6 l/min LVOT CI 2.3 l/min/m2 Pulmonic Valve Name Value Normal RVOT Doppler RVOT Peak Velocity 57 cm/s RVOT Peak Gradient 1 mmHg PV Doppler PV Peak Velocity 78 cm/s PV Peak Gradient 2 mmHg Mitral Valve Name Value Normal MV Diastolic Function MV E Peak Velocity 75 cm/s MV A Peak Velocity 67 cm/s MV E/A 1.1 MV Decel Time (PW) 183 ms MV Annular TDI MV E/e' (Septal) 7.2 MV E/e' (Lateral) 5.1 MV E/e' (Average) 6.1 Tricuspid Valve Name Value Normal TV Regurgitation Doppler TR Peak Velocity 233 cm/s TR Peak Gradient 22 mmHg Estimated PAP/RSVP RA Pressure 5 mmHg <=5 PA Systolic Pressure 27 mmHg <36 RV Systolic Pressure 27 mmHg <36 Aortic Valve Name Value Normal AV Doppler AV Peak Velocity 120 cm/s AV Peak Gradient 6 mmHg AV Area (Cont Eq Butch) 2.9 cm2 AV DI (Butch) 0.80 AV Regurgitation 2D LVOT Area 3.7 cm2 Ventricles Name Value Normal LV Dimensions 2D/MM IVS Diastolic Thickness (2D) 0.9 cm 0.6-1.0 LVID Diastole (2D) 4.9 cm 3.8-5.2 LVIW Diastolic Thickness (2D) 0.9 cm 0.6-0.9 LVID Systole (2D) 3.4 cm 2.2-3.5 LVOT Diameter 2.2 cm LV Mass (2D Cubed) 154.95 g 67.00-162.00 LV Mass Index (2D Cubed) 77 g/m2 43-95 Relative Wall Thickness (2D) 0.34 <=0.42 LV Fractional Shortening/Ejection Fraction 2D/MM LV Fractional Shortening (2D) 31 % 27-45 LV EF (2D Teichholz) 59 % LV Diastolic Volume (4C MOD) 122 ml LV EF (4C MOD) 56 % LV Diastolic Volume (2C MOD) 105 ml LV EF (2C MOD) 53 % LV Diastolic Volume (BP MOD) 113 ml 46-106 LV Diastolic Volume Index (BP MOD) 56 ml/m2 29-61 LV Systolic Volume (BP MOD) 52 ml 14-42 LV Systolic Volume Index (BP MOD) 26 ml/m2 8-24 LV EF (BP MOD) 54 % 54-74 LV Diastolic Length (4C) 8.6 cm LV Systolic Length (4C) 7.4 cm LV Stroke Volume (4C MOD) 69 ml Atria Name Value Normal LA Dimensions LA Volume (4C A-L) 39 ml LA Volume (BP A-L) 49 ml RA Dimensions RA Systolic Major [place] Length (4C) 5.5 cm 2.2-2.8 RA Area (4C) 19.7 cm2 <=18.0 Report Signatures
== END 2025-06-01 08:36 | disposition home or self-care (01) ==
LOC: ANHCARD 08:36
PROVIDERS: PCP Nurse Practitioner Family; Visit Provider Internal Medicine Cardiovascular Disease
DX: I49.3 Ventricular premature depolarization (principal)
CPT/HCPCS: 93306

== ENCOUNTER 2025-07-12 09:17 | Outpatient (CLI) | payer OTHER, SELFPAY ==
--- NOTE | 2025-07-12 09:21 | EST_ITS ---
Patient Info Name: Mayra Membreno Age: 45 years : 1980 Gender: Female Ht: 67 in Wt: 185 lbs BSA: 2.01 m2 HR: 56 bpm BP: 108 / 63 mmHg Exam Date: 07/12/2025 9:21 AM Patient Status: O Admit Date: 07/12/2025 Exam Type: CA stress test treadmill A treadmill exercise stress test was performed. Staff Attending Provider: Rene Dunn DO Exercise Technologist: Marycarmen Hidalgo Exercise Physician: Rene Dunn DO Summary 1. 1. Negative [place] exercise stress test for ischemic ST changes by ECG criteria. However, patient achieved only 81% MPHR for age group which reduces sensitivity of the test. 2. 2. Good functional capacity, achieving 11 METs of workload. 3. 3. Appropriate HR response to exercise. 4. 4. Appropriate HR recovery at 1 minute post exercise. 5. 5. No imaging with stress testing. 6. 6. Patient informed of the above results. Protocol: [place] Stress ECG Details Stage: REST Duration (min): 0 min : 53 sec Speed (mph): 0.0 Grade (%): 0 HR (bpm): 60 SBP (mmHg): 108 DBP (mmHg): 63 METS: --- Stage: REST Duration (min): 10 min : 10 sec Speed (mph): 0.0 Grade (%): 0 HR (bpm): 75 SBP (mmHg): 108 DBP (mmHg): 63 METS: --- Stage: STAGE 1 Duration (min): 1 min : 0 sec Speed (mph): 1.7 Grade (%): 10 HR (bpm): 96 SBP (mmHg): 108 DBP (mmHg): 63 METS: --- Stage: STAGE 1 Duration (min): 2 min : 0 sec Speed (mph): 1.7 Grade (%): 10 HR (bpm): 99 SBP (mmHg): 108 DBP (mmHg): 63 METS: --- Stage: STAGE 1 Duration (min): 3 min : 0 sec Speed (mph): 1.7 Grade (%): 10 HR (bpm): 96 SBP (mmHg): 129 DBP (mmHg): 49 METS: --- Stage: STAGE 2 Duration (min): 1 min : 0 sec Speed (mph): 2.5 Grade (%): 12 HR (bpm): 105 SBP (mmHg): 129 DBP (mmHg): 49 METS: --- Stage: STAGE 2 Duration (min): 2 min : 0 sec Speed (mph): 2.5 Grade (%): 12 HR (bpm): 111 SBP (mmHg): 137 DBP (mmHg): 49 METS: --- Stage: STAGE 2 Duration (min): 3 min : 0 sec Speed (mph): 2.5 Grade (%): 12 HR (bpm): 113 SBP (mmHg): 137 DBP (mmHg): 49 METS: --- Stage: STAGE 3 Duration (min): 1 min : 0 sec Speed (mph): 3.4 Grade (%): 14 HR (bpm): 123 SBP (mmHg): 173 DBP (mmHg): 71 METS: --- Stage: STAGE 3 Duration (min): 2 min : 0 sec Speed (mph): 3.4 Grade (%): 14 HR (bpm): 133 SBP (mmHg): 173 DBP (mmHg): 71 METS: --- Stage: STAGE 3 Duration (min): 3 min : 0 sec Speed (mph): 3.4 Grade (%): 14 HR (bpm): 131 SBP (mmHg): 159 DBP (mmHg): 76 METS: --- Stage: STAGE 4 Duration (min): 0 min : 32 sec Speed (mph): 4.2 Grade (%): 16 HR (bpm): 138 SBP (mmHg): 159 DBP (mmHg): 76 METS: --- Stage: RECOVERY Duration (min): 0 min : 27 sec Speed (mph): 0.0 Grade (%): 0 HR (bpm): 138 SBP (mmHg): 159 DBP (mmHg): 76 METS: --- Stage: RECOVERY Duration (min): 1 min : 27 sec Speed (mph): 0.0 Grade (%): 0 HR (bpm): 104 SBP (mmHg): 159 DBP (mmHg): 76 METS: --- Stage: RECOVERY Duration (min): 2 min : 27 sec Speed (mph): 0.0 Grade (%): 0 HR (bpm): 85 SBP (mmHg): 159 DBP (mmHg): 76 METS: --- Stage: RECOVERY Duration (min): 3 min : 27 sec Speed (mph): 0.0 Grade (%): 0 HR (bpm): 81 SBP (mmHg): 125 DBP (mmHg): 85 METS: --- Stage: RECOVERY Duration (min): 4 min : 27 sec Speed (mph): 0.0 Grade (%): 0 HR (bpm): 80 SBP (mmHg): 125 DBP (mmHg): 85 METS: --- Stage: RECOVERY Duration (min): 5 min : 11 sec Speed (mph): 0.0 Grade (%): 0 HR (bpm): 82 SBP (mmHg): 111 DBP (mmHg): 74 METS: --- Rest HR: 75 bpm Peak HR: 141 bpm Rest Sys BP: 108 mmHg Peak Sys BP: 173 mmHg Max Pred HR: 175 bpm % Max Pred HR: 81 % Target HR: 149 bpm Max RPP: 24,393 bpm*mmHg Kunh Score: 2 Termination Reason: Maximal effort/unable to continue Cardiac Symptoms: back pain Max ST Seg Deviation: -1.50 mm Total Time: 9 min : 32 sec Rest Nick BP: 63 mmHg Peak Nick BP: 71 mmHg Angina Score: None Total METS: 11.2 Resting ECG Sinus rhythm. Stress ECG No ST changes. Arrhythmias None. Report Signatures
--- OUTSIDE RECORDS SUMMARY | 2025-07-12 09:44 | XMS_ITS | Encounter Summary ---
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
--- OUTSIDE RECORDS SUMMARY | 2025-07-12 09:44 | XMS_ITS | Encounter Summary ---
Author Organization [facility] Healthcare Address [address] [place] [address] Care Team Providers Care Traveling Inventory Associate Name Role Phone Angelica Salazar LATHE SANDER Primary Care Provider [phone] Reason for Visit * Reason Onset Date Comments PMC Preprocedure 08/04/2024 Encounter Details Date Type Department Care Team (Late st Contact Info) Description 08/04/2024 Telephone [facility] [address] [facility] [address] [place] [address] Felipe Moses MD [address] [place] [address] PMC Preprocedure Social History Tobacco Use Types [...] on file Legal Sex Female 4:49 AM CATERING ATTENDANT Gender Identity Female 11/10/2022 8:02 PM CATERING ATTENDANT Sexual Orientation Not on file documented as [...] on filedocumented in this encounter Care Teams Traveling Inventory Associate Relationship Specialty Start Date End Date Angelica Salazar NP [address] [place] [address] PCP - General Nurse Practitioner 03/18/22 documented as of this encounter
--- OUTSIDE RECORDS SUMMARY | 2025-07-12 09:44 | XMS_ITS | Clinical Summary ---
Author Organization [facility] Address [address] [place] [address] Care Team Providers Care Palliative Care Nurse Practitioner Name Role Phone Angelica Salazar NP Primary Care Provider [phone] Allergies No known active allergies Medications busPIRone [...] mg total) by mouth nightly 4 Active hbkacrnu-dnj-s olic acid-vit K 400-80 mcg capsule Take [...] Encounters Date Type Department Care Team Description 06/13/2025 Telephone [facility] Medicine Scheduling [address] [place] [address] Ofelia Godinez from Last 3 Months Immunizations Immunization Administration [...] on file Legal Sex Female 4:49 AM MC KAY MACHINE OPERATOR Gender Identity Female 11/10/2022 8:02 PM MC KAY MACHINE OPERATOR Sexual Orientation Not on file Obstetrics History [...] Health Maintenance Due Date Last Done Comments Colon Cancer Screening-Colonoscopy 1980 Depression Screening 1980 Hepatitis C Screening 1980 DTaP/Tdap/Td Vaccine (1 - Tdap) 1991 Varicella Vaccines (1 of 2 - 13+ 2-dose series) 1993 Hepatitis B Screening 1998 HPV Vaccines (1 - 3-dose SCDM series) 2007 Cervical Cancer Screening 06/30/2017 06/30/2016 Regular Well Visit/Exam 18-64 09/12/2021 09/12/2020, 03/21/2019 Breast Cancer Screening-Mammogram 12/19/2023 12/18/2022, 08/04/2016 Covid-19 Vaccine ( season) 2025 10/31/2021, 12/03/2020, 11/12/2020 Influenza Vaccine (#1) 2025 [...] Read Routine (OP Routine) 12/18/2022 10:26 AM MC KAY MACHINE OPERATOR Screening mammogram, encounter for HM PAP SMEAR WITH HPV Routine 06/30/2016 from Last 3 Months or Most Recently Relevant to Health Maintenance Results * Screening Mammogram Bilateral W Bárbara (12/18/2022 10:26 AM MC KAY MACHINE OPERATOR) Anatomical Region Laterality Modality Breast Bilateral Mammography Narrative 12/21/2022 2:53 PM CDT Mammogram Technique: Bilateral Digital Breast Tomosynthesis, Bilateral C-view 2D Screening mammogram. Views obtained: bilateral craniocaudal and bilateral mediolateral oblique. Computer Aided Detection was performed. Mammogram Findings: The present examination has been compared to a prior imaging study performed at [facility] on 08/04/2016. The breasts are heterogeneously dense, [...] to a prior imaging study performed at [facility] on 08/04/2016. The breasts are heterogeneously dense, [...] Most Recently Relevant to Health Maintenance Insurance [employer] [facility] CIGNA Care Teams Palliative Care Nurse Practitioner Relationship Specialty Start Date End Date Angelica Salazar NP [address] [place] [address] PCP - General Nurse Practitioner 03/18/22
== END 2025-07-12 09:18 | disposition home or self-care (01) ==
LOC: ANHCARD 09:18
PROVIDERS: PCP Nurse Practitioner Family; Visit Provider Internal Medicine Cardiovascular Disease
DX: R06.02 Shortness of breath (principal)
CPT/HCPCS: 93017

== ENCOUNTER 2025-08-22 08:16 | Outpatient (CLI) | payer OTHER, SELFPAY ==
--- OUTSIDE RECORDS SUMMARY | 2025-08-22 08:45 | XMS_ITS | Encounter Summary ---
Author Organization [facility] Healthcare Address [address] [place] [address] Care Team Providers Care Hris Specialist Name Role Phone Angelica Salazar EARTH OBSERVATIONS CHIEF SCIENTIST Primary Care Provider [phone] Reason for Visit * Reason Onset Date Comments PMC Preprocedure 08/04/2024 Encounter Details Date Type Department Care Team (Late st Contact Info) Description 08/04/2024 Telephone [facility] [address] [facility] [address] [place] [address] Felipe Moses MD [address] [place] [address] PMC Preprocedure Social History Tobacco Use Types [...] on file Legal Sex Female 4:49 AM FRAME WIRER Gender Identity Female 11/10/2022 8:02 PM FRAME WIRER Sexual Orientation Not on file documented as [...] on filedocumented in this encounter Care Teams Hris Specialist Relationship Specialty Start Date End Date Angelica Salazar NP [address] [place] [address] PCP - General Nurse Practitioner 03/18/22 documented as of this encounter
--- OUTSIDE RECORDS SUMMARY | 2025-08-22 08:45 | XMS_ITS | Clinical Summary ---
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
--- OUTSIDE RECORDS SUMMARY | 2025-08-22 08:45 | XMS_ITS | Clinical Summary ---
Author Organization [facility] Address [address] [place] [address] Care Team Providers Care Environmental Sampler Name Role Phone Angelica Salazar NP Primary Care Provider [phone] Allergies No known active allergies Medications busPIRone (BUSPAR) 15 mg tabletIndicati ons:Generalize d Anxiety Disorder Take 1 tablet (15 mg total) by mouth 3 (three) times a day 5 03/22/20 18 Active montelukast (SINGULAIR) 10 mg tablet Take 1 tablet (10 mg total) by mouth daily 11 03/22/20 18 Active sertraline (ZOLOFT) 100 mg tablet Take 1 tablet (100 mg total) by mouth daily 5 03/22/20 18 Active cetirizine (ZyrTEC) 10 mg tablet Take 1 tablet (10 mg total) by mouth daily 03/28/20 19 Active dexmethylpheni date (FOCALIN) 10 mg tablet Take 1 tablet (10 mg total) by mouth 2 (two) times a day Taking as needed 08/18/20 20 Active Ubrelvy 50 mg tablet Take 1 tablet (50 mg total) by mouth as needed 05/10/20 22 Active cholecalcifero l (VITAMIN D-3) 2000 unit tablet Take 1 tablet (2,000 Units total) by mouth daily Active vitamin B complex capsule Take 1 capsule by mouth daily Active famotidine (PEPCID) 40 mg tablet Take 1 tablet (40 mg total) by mouth nightly as needed for heartburn Active Emgality Pen 120 mg/mL pen injector INJECT 120 MG SUBCUTANEOUSLY MONTHLY 10/23/19 23 Active nortriptyline (PAMELOR) 25 mg capsule Take 1 capsule (25 mg total) by mouth nightly 06/28/20 24 Active hrvlwjot-uht-j olic acid-vit K 400-80 mcg capsule Take 1 tablet/capsule by mouth Active ondansetron (ZOFRAN) 4 mg tablet Take 1 tablet (4 mg total) by mouth as needed 10/02/20 24 Active albuterol HFA (PROVENTIL HFA,VENTOLIN HFA,PROAIR HFA) 90 mcg/actuation inhaler INHALE 1 PUFF EVERY 4 HOURS NEEDED FOR SHORTNESS OF BREATH OR WHEEZING 10/25/19 25 Active cyclobenzaprin e (FLEXERIL) 10 mg tablet TAKE 1 TABLET BY MOUTH AT BEDTIME NEEDED FOR MUSCLE SPASMS. 12/08/[address] (VOLTAREN) 75 mg EC tablet Take 1 tablet (75 mg total) by mouth 2 (two) times a day 60 tablet 08/02/[address] (VOLTAREN) 75 mg EC tablet Take 1 tablet (75 mg total) by mouth 2 (two) times a day 60 tablet 01/31/20 25 025 Discontin ued(Reord er) Active Problems Problem Noted Date Diagnosed Date [...] Type Department Care Team Description 06/13/2025 Telephone [facility] Medicine Scheduling [address] [place] [address] Ofelia Godinez from Last 3 Months Immunizations Immunization Administration Dates Next Due Influenza, Quadrivalent, Jacinta l Culture-based MDCK, Preservative Free, Antibiotic Free, Intramuscular 07/05/2020 Influenza, Quadrivalent, Split, Intramuscular Influenza, Quadrivalent, Spl it, Preservative Free, Intramuscular 11/27/2019,07/08/2017 Influenza, Trivalent, IM (MDV) 09/10/2015 Influenza, Trivalent, Preservative Free, Intramu scular 06/30/2016 Surgical History Surgery Date Site/Laterality Comments [place] DELIVERY ONLY Section - (Added by TW [...] money to buy more. Never true 12/08/19 Within the past 12 months, t he food you bought just didn't last and you didn't have money to get more. 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 Views obtained: bilateral craniocaudal and bilateral mediolateral oblique. Computer Aided Detection was performed. Mammogram Findings: The present examination has been compared to a prior imaging study performed at [facility] on 08/04/2016. The breasts are [...] to a prior imaging study performed at [facility] on 08/04/2016. The breasts are heterogeneously dense, which may obscure small masses. There is no suspicious abnormality in either breast. Impression: There is no mammographic evidence of malignancy. Annual screening mammography is recommended. OVERALL FINAL ASSESSMENT: BI-RADS CATEGORY 1: Negative. us Self Screening Mammogram IMG MAMMO PROCEDURES Fi nal Result * PAP SMEAR WITH HPV (06/30/2016) Pap smear Normal Historical Provider MD HEALTH MAINTENANCE Final Result from Last 3 Months or Most Recently Relevant to Health Maintenance Insurance [facility] CIGNA Care Teams Environmental Sampler Relationship Specialty Start Date End Date Angelica Salazar NP [address] [place] [address] PCP - General Nurse Practitioner 03/18/22
--- OUTSIDE RECORDS SUMMARY | 2025-08-22 08:45 | XMS_ITS | Encounter Summary ---
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
--- NOTE | 2025-09-18 17:18 | P.SLEEP_ITS ---
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 The patient admits to snoring loudly. She denies having interruptions in breathing while asleep. She denies choking or gasping at night. She does have trouble breathing on her back. She denies morning headaches. She denies having a dry or sore mouth / throat in the morning. She does have nocturnal heartburn. She urinates twice throughout the night. She does have difficulty falling asleep. She denies having difficulty staying asleep. She denies having difficulty returning to sleep if she wakes up throughout the night. She denies any hypnotic or sedative use. She denies feeling anxious about sleep. She does feel tired or sleepy during the day. She does feel tired in the morning. She does have the urge to fall asleep during the day. She does feel drowsy while driving. She denies sleep paralysis, cataplexy and hypnagogic/ hypnopompic hallucinations. She does clench or grind her teeth. She denies kicking or jerking her legs excessively. She denies having a restless feeling in her legs. She goes to bed at 10:00 p.m. on work days and at 11:00 p.m. on her days off. It takes her 30 minutes to fall asleep on work days and 75 minutes on her days off. She gets 6-1/2 hours of sleep on work days and 7 hours on her days off. Her sleep is a little more restorative on days off. She denies taking any planned naps. She denies dream enactment behavior. She denies sleep walking. she consumes 1-2 cups of caffeinated beverage per day. She consumes 2 alcoholic beverages 1-2 nights per week. She denies tobacco use. She exercises 1-2 nights per week. [facility] Past Medical History Medical History Episodic migraine Dense breast Elevated liver enzymes Migraine syndrome Recurrent sinusitis Abdominal pain Obesity Abnormal CT scan, stomach GERD (gastroesophageal reflux disease) Change in bowel habits Hematochezia Diverticulosis Cholelithiasis History of abnormal cervical Pap smear Migraines HSV-1 (herpes simplex virus 1) infection Anxiety CAESAR (generalized anxiety disorder) Surgical History Surgical History History of laparoscopic cholecystectomy 09/13/24 Laparoscopic cholecystectomy with cholangiogram Dr. Blevins [employer] teeth removed H/O dilation and curettage (~2015) delivery delivered (~2012) Family History Family History Father Hypertension Diabetes mellitus Alcoholism Mother Breast cancer Lung cancer Grandparent Lung cancer Breast cancer Cerebrovascular accident Social History Social History Smoking packs per day: 0.5 Smoking cigarettes per day: 10.0 Years smoked: 15 Smoking pack-years: 7.50 Smoking status: Former smoker Tobacco type: cigarettes Additional smoking assessment comments: STARTED VAPING- Alcohol intake: current Alcohol use details: DRINKS Substance use: never Substance use type: does not use Lack of Transportation: No Lack of Food: Never True Current Housing: Decline to Answer Concerned About Future Housing: Decline to Answer Difficulty Paying Gas/Electric Bills: Decline to Answer Difficulty Paying for Meds: Decline to Answer Currently Unemployed: Decline to Answer Education: Decline to Answer Difficulty w/ Childcare or Family Care: Decline to Answer Living arrangements: with family Gender identity (if verbalized by the patient): Female Spiritual care concerns: No Agree to blood products: Yes Medications Home Medications ?Medication ?Instructions ?Recorded ?Confirmed ?Type lactobacillus combination no.9 4 1 mmu cells PO DAILY 11/29/23 05/23/25 History billion cell capsule (Adult 50 Plus Probiotic) Vitamin D3 10,000 unit PO DAILY 4 05/23/25 History mecobalamin (vitamin B12) 2,000 mg PO DAILY 03/15/24 0 05/23/25 History hbtpoafbsyzc-csakbvkl-vzqs 1 tablet PO DAILY 03/15/24 05/23/25 History fumarate 18 mg-folic acid 400 mcg tablet (One-A-Day Women's Complete) cetirizine 10 mg tablet (Zyrtec) 10 mg PO DAILY 05/23/25 History famotidine 40 mg tablet 40 mg PO HS 09/13/24 5 History meclizine 25 mg tablet 25 mg PO TID PRN Dizziness 1 11/14/23 05/23/25 History albuterol sulfate 90 mcg/actuation See Rx Instructions .Route 01/24/25 05/23/25 Rx aerosol inhaler .COMPLEX #8.5 ea buspirone 15 mg tablet 15 mg PO TID PRN anxiety #24 0 tabs 02/14/25 05/23/25 Rx dexmethylphenidate 10 mg tablet 10 mg PO BID PRN Anxie ty #60 tabs 02/14/25 05/23/25 Rx galcanezumab-gnlm 120 mg/mL See Rx Instructions .Route 04/04/25 05/23/25 Rx subcutaneous pen injector .COMPLEX #1 mL (Emgality Pen) nortriptyline 25 mg capsule See Rx Instructions .Route 04/04/25 05/23/25 Rx .COMPLEX #180 caps metoprolol succinate 25 mg 12.5 mg (1/2 x 25 mg) PO DA BRAD #45 04/12/25 05/23/25 Rx tablet,extended release 24 hr tabs triamcinolone acetonide 0.5 % 1 applic topical TID PRN rash #30 05/25/25 Rx topical cream grams ubrogepant 50 mg tablet (Ubrelvy) See Rx Instructions .Route 06/25/25 Rx .COMPLEX #10 tabs cyclobenzaprine 10 mg tablet 10 mg PO TID #30 tabs Rx diclofenac sodium 75 mg 75 mg PO BID PRN pain #60 ta bs 08/02/25 Rx tablet,delayed release sertraline 100 mg tablet See Rx Instructions .Route 1 Rx .COMPLEX #180 tabs Sleep Procedure The sleep study was completed using DVTelT a technically adequate device with seven channels: peripheral arterial tone, actigraphy, body position, snore, respiratory movement, pulse oximetry, sleep staging, and heart rate. Prior to using the device, the patient received verbal and written instructions for its application and was provided with the help desk phone number for additional telephonic instruction with 24-hour availability of qualified personnel to answer questions. The study was scored using CMS guidelines. Sleep Architecture The total recording time is 9 hrs, 9 min. The total sleep time is 8 hrs, 24 min. Sleep latency is 14 minutes. REM latency is 57 minutes. The patient had 7 episodes of waking. Sleep architecture shows 12.8% deep sleep, 73.9% light sleep, and (as % Total Sleep Time) showed NREM (Light 73.9%; Deep 12.8%), and a 13.3% stage REM. The patient spent 73.9% of total sleep time in the supine position. Sleep efficiency was 91.80. Respiratory Analysis The overall AHI (pAHI 4%:) is 2.4. The overall AHI (pAHI 3%:) is 3.6. The central AHI is 0.0. The AHI was 3.7 in NREM and 3.3 in REM sleep. The AHI was 4.3 in Supine and 0.9 in Non-supine sleep. Percent of Rah Casarez respirations is 0.0. Oximetry Data The oxygen desaturation index (TIFFANIE 4%:) is 1.5. The mean saturation is 96%, and the lowest saturation is 93%. Time spent with saturation < 88% is 0.0 minutes. Snoring Profile Snoring average intensity is 41 dB. The patient snored above 45 decibels for 10.5 minutes, 2.1% of sleep time. Cardiac Profile The average pulse rate is 63 beats per minutes. The lowest pulse rate is 32 bpm. The highest pulse rate reported is 103 bpm. Atrial fibrillation was not detected. Premature beats occur 5.7 per minute. Assessment and Plan Assessment and Plan (1) Sleep disturbances: Code(s): G47.9 - Sleep disorder, unspecified Status: Acute Assessment and Plan: The patient had an overall AHI of 2.4 with desaturation down to 93%. This is not consistent with sleep-disordered breathing. If there is further concern for a sleep disorder, I recommend that the patient have a split study with the use of a hypnotic to ensure we obtain enough sleep data. Data The data obtained during this sleep study is adequate for interpretation. Certification This sleep study has been reviewed by a board certified sleep medicine physician.
[2025-09-19 18:18] VITALS: BMI 29.6
== END 2025-08-23 15:43 | disposition home or self-care (01) ==
LOC: ANHCSM 08:27
PROVIDERS: PCP Nurse Practitioner Family; Visit Provider Internal Medicine Cardiovascular Disease
DX: I49.3 Ventricular premature depolarization (principal); G47.9 Sleep disorder, unspecified; F39 Unspecified mood [affective] disorder
CPT/HCPCS: 95800

== ENCOUNTER 2025-10-08 13:38 | Outpatient (CLI) | payer OTHER, SELFPAY ==
--- NOTE | ~2025-10-08 | MR_ITS ---
MR breast BI wo/w con 10/16/2025 10:49 COIN BOX INSPECTOR INDICATION: Encounter for screening for malignancy of the breasts. Family history of malignant neoplasm of the breasts. TECHNIQUE: MRI of the breasts perform using standard protocol pre-and post IV contrast with the following sequences: Axial T2 STIR, axial T1, axial vibrant T1 with fat suppression precontrast and multiphasic postcontrast. 18 cc MultiHance administered intravenously. COMPARISON: Mammograms dated 09/26 and 10/09/2024 FINDINGS: There are no abnormalities on the precontrast sequences. There is mild background parenchymal enhancement. No enhancing lesions following contrast administration. No areas of enhancement meeting threshold criteria on CAD analysis. No evidence of signal abnormalities in the axillary or internal mammary node distributions. LEFT BREAST: No signal abnormalities on precontrast sequences. There is mild background parenchymal enhancement. No enhancing lesions following contrast administration. No areas of enhancement meeting threshold criteria on CAD analysis. No evidence of signal abnormalities in the axillary or internal mammary node distributions.] IMPRESSION: 1: Right breast: Negative. No evidence of malignancy. BI-RADS category 1. Recommend annual mammography follow-up. 2: Left breast: Negative. No evidence of malignancy. BI-RADS category 1. Recommend annual mammography follow-up. Follow-up MRI may be useful for supplementing mammographic evaluation as clinically indicated. Reviewed, dictated and finalized at location O. BOX INSPECTOR IMPRESSION: 1: Right breast: Negative. No evidence of malignancy. BI-RADS category 1. Recommend annual mammography follow-up. 2: Left breast: Negative. No evidence of malignancy. BI-RADS category 1. Re commend annual mammography follow-up. Follow-up MRI may be useful for supplementing mammographic evaluation as clinic ally indicated.
--- OUTSIDE RECORDS SUMMARY | 2025-10-08 13:56 | XMS_ITS | Clinical Summary ---
Author Organization [facility] Address [address] [place] [address] Care Team Providers Care Multiple Cut Off Saw Operator Name Role Phone Angelica Salazar NP Primary Care Provider [phone] Allergies No known active allergies Medications busPIRone [...] mg total) by mouth nightly 4 Active sfxdttzn-yvb-h olic acid-vit K 400-80 mcg capsule Take [...] a day 60 tablet 5 026 Active omeprazole (PriLOSEC) 20 mg capsule Take 1 capsule (20 mg total) by mouth daily 5 Active metoprolol XL (TOPROL-XL) 25 mg extended release tablet 5 Active Active Problems Problem Noted Date Diagnosed [...] Encounters Date Type Department Care Team Description 10/02/2025 2:03 PM EDITORIAL INTERN - 10/02/2025 11:59 PM EDITORIAL INTERN Hospital Encounter [facility] the [facility] Medicine [address] [facility] [address] [place] [id number] Felipe Moses MD Sacroiliitis Discharge Disposition: Discharge to home or self care 09/19/2025 Telephone [facility] the [facility] Advanced Medicine [address] [facility] [address] [place] [address] Felipe Moses MD [facility] Preprocedure 08/28/2025 Orders Only [facility] at the [facility] [address] [facility] [address] [place] [address] Felipe Moses MD Sacroiliitis (Primary Dx) 08/28/2025 Telephone [facility] [place] [facility] Medicine [address] [facility] [address] [place] [address] Felipe Moses MD Call note: SI from Last 3 Months Immunizations Immunization Administration Dates Next Due Influenza, Quadrivalent, Jacinta l Culture-based MDCK, Preservative Free, Antibiotic Free, Intramuscular 07/05/2020 Influenza, Quadrivalent, Split, Intramuscular Influenza, Quadrivalent, Spl it, Preservative Free, Intramuscular 11/27/2019,07/08/2017 Influenza, Trivalent, IM (MDV) 09/10/2015 Influenza, Trivalent, Preservative Free, Intramu scular 06/30/2016 Surgical History Surgery Date Site/Laterality Comments [place] DELIVERY ONLY Section - (Added by TW [...] daily Alcohol Use Standard Drinks/Week Comments Yes 1 (1 standard drink = 0.6 oz pur [...] money to get more. Never true 12/08/2024 AUDIT-C Answer Date Recorded Q1: How often do you have a drink containing alc ohol? 2-4 times a month 10/02/2025 Q2: How many drinks containi ng alcohol do you have on a typical day when you are drinking? 1 or 2 10/02/2025 Q3: How often do you have si x or more drinks on one occasion? Never 10/02/2025 Comments No Sex and Gender Information Value Date Recorded Sex Assigned at Not on file Legal Sex Female 4:49 AM EDITORIAL INTERN Gender Identity Female 11/10/2022 8:02 PM EDITORIAL INTERN Sexual Orientation Not on file Obstetrics History Para Term AB IAB SAB Ectopic Multiple Livin g Live Births 2 1 1 1 1 1 1 Date Outcome GA Total Labor Labor/2nd/3rd Weight Sex Type Anes PTL Chinyere A1 A5 Name Clin Term Living SAB Last Filed Vital Signs Vital Sign Reading Time Taken Comments Blood Pressure 124/91 10/02/2025 3:31 PM EDITORIAL INTERN Pulse 58 10/02/2025 3:31 PM EDITORIAL INTERN Temperature 36.3 C (97.3 F) 10/02/2025 2:07 PM EDITORIAL INTERN Respiratory Rate 20 10/02/2025 3:31 PM EDITORIAL INTERN Oxygen Saturation 99% 10/02/2025 3:31 PM EDITORIAL INTERN Inhaled Oxygen Concentration - - Weight 85.7 kg (189 lb) 10/02/2025 2:07 PM EDITORIAL INTERN Height 170.2 cm (5' 7) 10/02/2025 2:07 PM EDITORIAL INTERN Body Mass Index 29.6 10/02/2025 2:07 PM EDITORIAL INTERN Plan of Treatment Health Maintenance Due Date [...] 12/03/2020, 11/12/2020 Influenza Vaccine (#1) 2025 , 07/08/2020, 07/05/2020, Additional history exists Pneumococcal vaccine <65 Aged Out No longer eligible based on patient's age to complete this topic Goals Goal Patient Goal Type Associated Problems Recent Progress Patient-Stated? Author CCM Chronic Pain Care Plan Chronic Care Management On track(2024 2:13 PM EDITORIAL INTERN) Patti Laird, RN Note: Problem: Chronic Pain Goals: 1. Minimize further functional decline 2. Maximize quality of life 3. Control pain Strategies: - Activity/exercise program recommendation - Conservative stepwise pain medicine strategy with multi-disciplinary approach - Recommend healthy lifestyle strategies and compensatory methods as needed Procedures Procedure Name Priority Date/Time Associated Diagnosis Comments PAIN MGMT IMAGING SI JOINT BILATERAL ARTHROGRPHY Schedule Routine, Read Routine (OP Routine) 10/02/2025 3:29 PM EDITORIAL INTERN Sacroiliitis SCREENING MAMMOGRAM BILATERAL W BÁRBARA Schedule Routine, Read Routine (OP Routine) 12/18/2022 10:26 AM EDITORIAL INTERN Screening mammogram, encounter for HM PAP SMEAR WITH HPV Routine 06/30/2016 from Last 3 Months or Most Recently Relevant to Health Maintenance Results * Imaging SI Joint Injection Bilateral (22639) (10/02/2025 3:29 PM EDITORIAL INTERN) Narrative [id number] - 10/02/2025 3:29 PM EDITORIAL INTERN The images from this study are not interpreted by Radiology. Please refer to the physician's procedure / OR operative note. us Felipe Moses MD IMG PAIN MGMT PROCEDURES Final Result [id number] * Screening Mammogram Bilateral W Bárbara (12/18/2022 10:26 AM EDITORIAL INTERN) Anatomical Region Laterality Modality Breast Bilateral Mammography Narrative 12/21/2022 2:53 PM CDT Mammogram Technique: Bilateral Digital Breast Tomosynthesis, Bilateral C-view 2D Screening mammogram. Views obtained: bilateral craniocaudal and bilateral mediolateral oblique. Computer Aided Detection was performed. Mammogram Findings: The present examination has been compared to a prior imaging study performed at [facility] on 08/04/2016. The breasts are heterogeneously dense, [...] to a prior imaging study performed at [facility] on 08/04/2016. The breasts are heterogeneously dense, which may obscure small masses. There is no suspicious abnormality in either breast. Impression: There is no mammographic evidence of malignancy. Annual screening mammography is recommended. OVERALL FINAL ASSESSMENT: BI-RADS CATEGORY 1: Negative. us Self Screening Mammogram IMG MAMMO PROCEDURES Fi nal Result * HM PAP SMEAR WITH HPV (06/30/2016) Pap smear Normal us Historical Provider MD HEALTH MAINTENANCE Final Result from Last 3 Months or Most Recently Relevant to Health Maintenance Insurance [employer] [facility] Bettery Care Teams Multiple Cut Off Saw Operator Relationship Specialty Start Date End Date Angelica Salazar NP [address] [place] [address] PCP - General Nurse Practitioner 03/18/22
--- OUTSIDE RECORDS SUMMARY | 2025-10-08 13:56 | XMS_ITS | Clinical Summary ---
Author Organization [facility] Address [address] [place] [id number] Care Team Providers Care Industrial Design Intern Name Role Phone Unavailable Primary Care Provider Unavailabl e Social History Tobacco Use Types Packs/Day Years Used Date Smoking Tobacco: Never Assessed Comments Unknown Sex and Gender Information Value Date Recorded Sex Assigned at Not on file Legal Sex Female 5:57 PM HOTEL RESERVATION AGENT Gender Identity Not on file Sexual Orientation [...]
--- OUTSIDE RECORDS SUMMARY | 2025-10-08 13:56 | XMS_ITS | Encounter Summary ---
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
--- OUTSIDE RECORDS SUMMARY | 2025-10-08 13:56 | XMS_ITS | Encounter Summary ---
Author Organization [facility] Address [address] [place] [address] Care Team Providers Care Automatic Splicing Machine Operator Name Role Phone Angelica Salazar CATALYST OPERATOR GASOLINE Primary Care Provider [phone] Reason for Visit * Reason Onset Date Comments PMC Preprocedure 08/04/2024 Encounter Details Date Type Department Care Team (Late st Contact Info) Description 08/04/2024 Telephone [facility] [address] [facility] [address] [place] [address] Felipe Moses MD [address] [place] [address] PMC Preprocedure Social History Tobacco Use Types [...] on file Legal Sex Female 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 Author CCM Chronic Pain Care Plan Chronic Care Management On track(2024 2:13 PM RATE CLERK PASSENGER) Patti Laird, DESIRE Note: Problem: Chronic Pain Goals: 1. Minimize further functional decline 2. Maximize quality of life 3. Control pain Strategies: - Activity/exercise program recommendation - Conservative stepwise pain medicine strategy with multi-disciplinary approach - Recommend healthy lifestyle strategies and compensatory methods as needed documented as of this encounter Visit Diagnoses Not on filedocumented in this encounter Care Teams Automatic Splicing Machine Operator Relationship Specialty Start Date End Date Angelica Salazar NP [address] [place] [address] PCP - General Nurse Practitioner 03/18/22 documented as of this encounter
== END 2025-10-08 13:39 | disposition home or self-care (01) ==
PROVIDERS: PCP Nurse Practitioner Family; Visit Provider Surgery
DX: Z12.31 Encounter for screening mammogram for malignant neoplasm of breast (principal); Z80.3 Family history of malignant neoplasm of breast
CPT/HCPCS: 77049; A9577; C8908